=== PATIENT | female | born 1950 | race Two or more races ===

== ENCOUNTER 2021-02-03 14:15 | Emergency (ER) | payer MEDICARE, SELFPAY ==
[2021-02-03 14:23] VITALS: BP 200/94; PULSE 84; RESP 16; TEMP 36.9; O2SAT 94; BMI 31.8
[2021-02-03 18:00] VITALS: BP 204/90; PULSE 80; RESP 18; TEMP 37.1; O2SAT 97
--- NOTE | 2021-02-03 18:36 | ED_ITS ---
HPI - General Adult General Chief complaint: General Medical Stated complaint: FACIAL SWELLING DENTAL PAIN Time Seen by Provider: 02/03/21 18:23 Source: patient and family History of Present Illness HPI narrative: Patient is complaining of right dental and facial pain for the past 2-3 days. No fevers or chills. Long history of asthma with mild exacerbation but no significant difficulty breathing. No history of similar issues. She does have a history of poor dentition and multiple extractions in the past. She is in the process of finding a new dentist. She presents to the emergency department today because right side of her face is starting to swell and turn red. The pain started in her right upper molar region Related Data Previous Rx's Medication Instructions Recorded amoxicillin 500 mg tablet 1,000 mg PO Q12H #20 tab 02/03/21 ibuprofen 800 mg tablet 800 mg PO TID #20 tab 02/03/21 oxycodone-acetaminophen 5 mg-325 1 tab PO TID PRN #7 tab 02/03/21 mg tablet (Percocet) Allergies Allergy/AdvReac Type Severity Reaction Status Date / Time No Known Allergies Allergy Verified 02/03/21 14:30 Review of Systems Constitutional: Constitutional: Denies fever(s) ENT: Comments: No throat pain or difficulty swallowing. No lower jaw pain. Cardiovascular: Cardiovascular: Denies chest pain and Reports dyspnea (Mild shortness of breath consistent with her chronic asthma) Respiratory: Respiratory: Reports dyspnea (Mild shortness of breath consistent with her chronic asthma) Gastrointestinal: Gastrointestinal: Denies abdominal pain PMFSH Past Medical History Medical History (Updated 02/03/21 @ 18:43 by Shawn Barr MD) Asthma Cellulitis Social History Social History Advance Directives: Yes Advance Directives Information Provided: Yes Advance Directives on File: No Physical Exam Vital Signs: Vital Signs: Last Vital Signs Temp 98.7 F 02/03/21 18:00 Pulse 80 02/03/21 18:00 Resp 18 02/03/21 18:00 BP 204/90 H 02/03/21 18:00 Pulse Ox 97 02/03/21 18:00 Body Mass Index 31.8 Const: General: cooperative, no acute distress and alert Joey entation/consciousness: patient oriented x3 HENMT: Other: Right-sided facial swelling with mild redness and erythema. Ten derness to upper single right molar. Also some gum tenderness. No sub mandibular or submental tenderness or swelling or evidence of Mahad's angina. Airway is intact without stridor. No difficulty swallowing Neck: Other: No anterior neck tenderness or lymphadenopathy. No stridor Resp: Other: Mildly diminished bilaterally Cardio: Other: Regular rate and rhythm no murmurs rubs or gallops Skin: Other: Mild erythema right face without fluctuance or evidence of abscess Neuro: General: patient oriented x3 Course Course Course Narrative: Right facial cellulitis secondary to dental infection. No evidence of Mahad's angina or abscess. Will treat with amoxicillin here in the emergency department. Amoxicillin, ibuprofen, and Percocet for home Discharge Plan Discharge Clinical Impression: Cellulitis of face, Dental infection Patient Disposition: Home, Self-Care Instructions: Cellulitis (ED) Additional Instructions: See dental clinic list Prescriptions: New amoxicillin 500 mg tablet 1,000 mg PO Q12H Qty: 20 RF: 0 oxycodone-acetaminophen [Percocet] 5-325 mg tablet 1 tab PO TID PRN (Reason: pain) Qty: 7 RF: 0 ibuprofen 800 mg tablet 800 mg PO TID Qty: 20 RF: 0
[2021-02-03] MEDS: Amoxicillin 500 MG CAPSULE 1000 MG PO (18:58)
[2021-02-03] MEDS: Ibuprofen 800 MG TABLET PO (18:59)
== END 2021-02-03 19:02 | disposition home or self-care (01) ==
PROVIDERS: Emergency Provider Emergency Medicine
DX: L03.211 Cellulitis of face (principal); K04.7 Periapical abscess without sinus; K08.89 Other specified disorders of teeth and supporting structures
CPT/HCPCS: 99283; 99284

== ENCOUNTER 2022-01-19 12:43 | Outpatient (REF) | payer MEDICARE, SELFPAY ==
--- NOTE | ~2022-01-19 | XR_ITS ---
EXAMINATION: BILATERAL KNEE X-RAY CLINICAL INFORMATION: Pain COMPARISON: None TECHNIQUE: 3 views of each knee FINDINGS: Right: There is mild valgus angulation. Bone alignment is otherwise normal. No fracture or dislocation is seen. There is evidence of tricompartment arthritis. There is a small joint effusion. Left: There is mild valgus angulation. Bone alignment is otherwise normal. There is tricompartment arthritis. There is a small joint effusion. XR/XR knee RT 3V IMPRESSION: Bilateral arthritis.
--- NOTE | ~2022-01-19 | XR_ITS ---
EXAMINATION: BILATERAL KNEE X-RAY CLINICAL INFORMATION: Pain COMPARISON: None TECHNIQUE: 3 views of each knee FINDINGS: Right: There is mild valgus angulation. Bone alignment is otherwise normal. No fracture or dislocation is seen. There is evidence of tricompartment arthritis. There is a small joint effusion. Left: There is mild valgus angulation. Bone alignment is otherwise normal. There is tricompartment arthritis. There is a small joint effusion. XR/XR knee LT 3V IMPRESSION: Bilateral arthritis.
== END 2022-01-19 12:44 | disposition home or self-care (01) ==
LOC: HO.HOSX 12:43
PROVIDERS: Visit Provider Physician Assistant
DX: M17.0 Bilateral primary osteoarthritis of knee (principal)
CPT/HCPCS: 73562; 99202

== ENCOUNTER 2022-02-07 07:05 | Outpatient (REF) | payer MEDICARE, SELFPAY ==
[2022-02-07 07:24] LABS: MANUAL DIFF FLAG NO
[2022-02-07 07:31] LABS: Basophils Absolute Auto 0.1 X10*3/uL (0.0-0.2); Basophils Percent Auto 0.8 % (0-2); Eosinophils Absolute Auto 0.4 X10*3/uL (0.0-0.4); Eosinophils Percent Auto 6.1 % (0-4); Hematocrit 42.3 % (37.0-47.0); Hemoglobin 13.5 g/dl (12.0-16.0); Imm Gran Abs Auto 0.04 X10*3/uL (0.00-0.03); Imm Gran Pct Auto 0.6 % (0.0-0.4); Lymphocytes Absolute Auto 2.2 X10*3/uL (1.2-4.9); Lymphocytes Percent Auto 31.1 % (20-40); Mean Corpuscular HGB Conc 31.9 g/dl (31.0-35.0); Mean Corpuscular Hemoglobin 28.5 pg (27.0-33.0); Mean Corpuscular Volume 89.4 fL (80.0-98.0); Mean Platelet Volume 10.2 fL (9.4-12.3); Monocytes Absolute Auto 0.4 X10*3/uL (0.1-1.2); Monocytes Percent Auto 5.8 % (2-11); Neutrophils Percent Auto 55.6 % (45-73); Platelet Count 220 X10*3/uL (160-400); Red Blood Count 4.73 X10*6/uL (4.20-5.50); Red Cell Distribution Width 14.7 % (11.0-16.0); White Blood Count 7.2 X10*3/uL (4.8-10.8)
[2022-02-07 07:54] LABS: Alanine Aminotransferase 23 U/L (0-31); Albumin Level 3.9 g/dL (3.5-5.0); Alkaline Phosphatase 83 U/L (39-117); Anion Gap 18 (12-20); Aspartate Amino Transferase 18 U/L (5-31); Bilirubin Total 0.7 mg/dL (0.0-1.0); Blood Urea Nitrogen 23 mg/dL (9-16); Calcium 9.1 mg/dL (8.4-10.2); Carbon Dioxide 26 mmol/L (22-29); Chloride 100 mmol/L (96-108); Cholesterol 165 mg/dL; Estimated Glomerular Filt Rate 45; Glucose Fasting 93 mg/dL (60-99); HDL Cholesterol 35 mg/dL; Iron 78 mcg/dL (30-160); LDL Cholesterol Calculated 89 mg/dl; Percent Iron Saturation 22 % (15-50); Potassium 4.6 mmol/L (3.3-5.1); Sodium 139 mmol/L (135-145); Total Iron Binding Capacity 348 mcg/dL (228-428); Total Protein 6.6 g/dL (6.5-8.0); Triglycerides 206 mg/dL; Unsaturated Iron Binding 270 ug/dL
[2022-02-07 08:19] LABS: TSH reflex Free T4 1.48 uIU/mL (0.32-4.0); Vitamin D 25-OH Total 35.1 ng/mL (>30)
[2022-02-07 08:43] LABS: Folate 11.2 ng/mL (> or = 4.0); Vitamin B12 378 pg/mL (200-900)
== END 2022-02-07 07:06 | disposition home or self-care (01) ==
LOC: HO.LAB 07:05
PROVIDERS: PCP Nurse Practitioner Family; Visit Provider Nurse Practitioner Family
DX: Z13.29 Encounter for screening for other suspected endocrine disorder (principal); M25.561 Pain in right knee; M25.562 Pain in left knee; K21.9 Gastro-esophageal reflux disease without esophagitis; E78.5 Hyperlipidemia, unspecified
CPT/HCPCS: 36415; 80053; 80061; 82306; 82607; 82746; 83540; 84443; 85025

== ENCOUNTER 2022-03-02 09:25 | Outpatient (RCR) | payer MEDICARE, SELFPAY ==
[2022-03-02 09:51] VITALS: BP 128/57; PULSE 62
--- NOTE | 2022-03-02 11:44 | MHC.PT.EP ---
[facility] [place] Office [place] Office [place] Office [address] [phone] F: [phone] F: [phone] F: [phone] F: [phone] Physical Therapy Plan of Care Date of Evaluation: Date of Surgery: NA Diagnosis: B primary OA of knee Assessment: Rita is a 72 year old female who is referred to PT for B primary OA of knee . History obtained from family. Per family member she has a family h/o knee issues which has made other family members wheelchair bound. Per family members pt was ambulating with AD until 3 years back when she developed shingles and ended up being wheel chair bound. On PT examination she presented with 7/10 pain in L knee with transfers, TTP over medial joint line in L knee, significantly decreased B LE ROM, decreased B LE strength and altered posture. Due to these impairments she is wheel chair bound and is dependent with transfers and bed mobility. Her son is her [employer] who assists her with all ADLs. She is an appropriate candidate for home PT. Family members are going to try to set up home PT. She will trial outpatient PT until then to address the aforementioned impairments and improve tolerance to functional activities. Frequency and Duration: The patient will be seen 2/week for 5 weeks. Short Term Goals: 1. Pt will initiate performing HEP in 1 weeks. 2. Pt will be able to roll in the bed with CTG to min A in 2 weeks Long-Term Goals: 1. Pt will be able to perform supine to sit transfer with min A in 4 weeks. 2. Pt will be independent with symptom management and maintenance following d.c in 5 weeks. Treatment Plan: Modalities to reduce pain, spasms and effusion. Manual therapy to restore motion and function. Therapeutic exercise to improve strength and flexibility. Neuromuscular re-education for posture and balance. Therapeutic activities to return to functional activities of daily living. Electronically signed by: Maria Alejandra Mandel PT DPT Please sign and return to therapist. Thank you for your referral.
--- NOTE | 2022-03-13 08:24 | MHC.PT.DC ---
[facility] [place] Office [place] Office [place] Office [address] Ara Crenshaw [address] [phone] F: [phone] F: [phone] F: [phone] F: [phone] Physical Therapy Discharge Report Diagnosis: B primary OA of knee Date of Surgery: NA Date of Evaluation: 03/02/22 Date of Discharge: 03/13/22 Treatments to Date: 1 Cancellations to Date: 0 No Shows to Date: 0 Discharge Status: Discharge Summary: Pt d/c from PT as she has started home PT. Electronically signed by: Maria Alejandra Mandel PT DPT Please sign and return to therapist. Thank you for your referral.
== END 2022-03-13 08:24 | disposition home or self-care (01) ==
LOC: HO.PT 09:25
PROVIDERS: PCP Nurse Practitioner Family; Visit Provider Physician Assistant
DX: M17.0 Bilateral primary osteoarthritis of knee (principal); Z99.3 Dependence on wheelchair
CPT/HCPCS: 97110; 97162

== ENCOUNTER → 2022-04-10 09:38 | Outpatient (BNVA) | payer MEDICARE, SELFPAY | PROVIDERS: PCP Nurse Practitioner Family; Visit Provider Physician Assistant | DX: M17.0 Bilateral primary osteoarthritis of knee (principal) | CPT/HCPCS: 99212 ==

== ENCOUNTER → 2022-04-11 07:57 | Outpatient (BNVA) | payer MEDICARE, SELFPAY | PROVIDERS: PCP Nurse Practitioner Family; Referring Provider Nurse Practitioner Family; Visit Provider Nurse Practitioner | DX: Z01.818 Encounter for other preprocedural examination (principal); Z99.3 Dependence on wheelchair | CPT/HCPCS: 99202 ==

== ENCOUNTER → 2022-07-10 09:50 | Outpatient (BNVA) | payer MEDICARE, SELFPAY | PROVIDERS: Visit Provider Physician Assistant | DX: M17.0 Bilateral primary osteoarthritis of knee (principal) | CPT/HCPCS: 20610; 99212; J1040 ==

== ENCOUNTER 2022-08-02 07:11 | Outpatient (REF) | payer MEDICARE, SELFPAY ==
[2022-08-02 08:04] LABS: Hematocrit 39.9 % (37.0-47.0); Hemoglobin 12.8 g/dl (12.0-16.0); Mean Corpuscular HGB Conc 32.1 g/dl (31.0-35.0); Mean Corpuscular Hemoglobin 28.6 pg (27.0-33.0); Mean Corpuscular Volume 89.1 fL (80.0-98.0); Platelet Count 229 X10*3/uL (160-400); Red Blood Count 4.48 X10*6/uL (4.20-5.50); Red Cell Distribution Width 14.8 % (11.0-16.0); White Blood Count 6.5 X10*3/uL (4.8-10.8)
[2022-08-02 08:38] LABS: Alanine Aminotransferase 13 U/L (0-31); Albumin Level 3.8 g/dL (3.5-5.0); Alkaline Phosphatase 78 U/L (39-117); Anion Gap 15 (12-20); Aspartate Amino Transferase 13 U/L (5-31); Bilirubin Total 0.5 mg/dL (0.0-1.0); Blood Urea Nitrogen 25 mg/dL (9-16); Calcium 9.1 mg/dL (8.4-10.2); Carbon Dioxide 28 mmol/L (22-29); Chloride 102 mmol/L (96-108); Cholesterol 177 mg/dL; Estimated Glomerular Filt Rate > 60; Glucose Fasting 87 mg/dL (60-99); HDL Cholesterol 39 mg/dL; LDL Cholesterol Calculated 94 mg/dl; Potassium 4.6 mmol/L (3.3-5.1); Sodium 140 mmol/L (135-145); Triglycerides 221 mg/dL
== END 2022-08-02 07:12 | disposition home or self-care (01) ==
LOC: HO.LAB 07:11
PROVIDERS: PCP Nurse Practitioner Family; Visit Provider Nurse Practitioner Family
DX: E78.5 Hyperlipidemia, unspecified (principal); I10 Essential (primary) hypertension
CPT/HCPCS: 36415; 80053; 80061; 85027

== ENCOUNTER 2022-08-09 10:03 | Outpatient (REF) | payer MEDICARE, SELFPAY | END 2022-08-09 10:04 | disposition home or self-care (01) | LOC: HO.LAB 10:03 | PROVIDERS: Visit Provider Nurse Practitioner Family | DX: R30.0 Dysuria (principal) | CPT/HCPCS: 87086 ==

== ENCOUNTER → 2022-10-09 09:08 | Outpatient (BNVA) | payer MEDICARE, SELFPAY | PROVIDERS: PCP Nurse Practitioner Family; Visit Provider Physician Assistant | DX: M17.0 Bilateral primary osteoarthritis of knee (principal) | CPT/HCPCS: 20610; 99212; J1040 ==

== ENCOUNTER 2022-11-06 07:09 | Outpatient (REF) | payer OTHER, SELFPAY ==
[2022-11-06 08:12] LABS: Alanine Aminotransferase 16 U/L (0-31); Alkaline Phosphatase 85 U/L (39-117); Anion Gap 15 (12-20); Aspartate Amino Transferase 12 U/L (5-31); Bilirubin Total 0.6 mg/dL (0.0-1.0); Blood Urea Nitrogen 20 mg/dL (9-16); Calcium 9.5 mg/dL (8.4-10.2); Carbon Dioxide 26 mmol/L (22-29); Chloride 104 mmol/L (96-108); Cholesterol 194 mg/dL; Estimated Glomerular Filt Rate > 60; Glucose Fasting 90 mg/dL (60-99); HDL Cholesterol 47 mg/dL; LDL Cholesterol Calculated 112 mg/dl; Potassium 4.4 mmol/L (3.3-5.1); Sodium 141 mmol/L (135-145); Total Protein 6.5 g/dL (6.5-8.0); Triglycerides 175 mg/dL
== END 2022-11-06 07:10 | disposition home or self-care (01) ==
LOC: HO.LAB 07:09
PROVIDERS: PCP Nurse Practitioner Family; Visit Provider Nurse Practitioner Family
DX: E78.5 Hyperlipidemia, unspecified (principal); I10 Essential (primary) hypertension
CPT/HCPCS: 36415; 80053; 80061

== ENCOUNTER 2023-01-07 16:16 | Emergency (ER) | payer MEDICARE, SELFPAY ==
--- NOTE | ~2023-01-07 | XR_ITS ---
EXAMINATION: XR WRIST, LEFT XR HAND, LEFT CLINICAL INFORMATION: Left thumb injury/laceration. COMPARISON: None available. TECHNIQUE: PA, lateral, and oblique views of the left wrist and hand. FINDINGS: No acute fractures or subluxation. Moderate multifocal degenerative osteoarthritis with joint space narrowing, subcortical sclerosis and small marginal osteophytes. No erosions. No abnormal soft tissue calcifications. XR/XR hand wrist LT IMPRESSION: 1. No acute fractures or subluxation. 2. Moderate multifocal degenerative osteoarthritis.
[2023-01-07 17:12] VITALS: BP 159/83; PULSE 83; RESP 18; TEMP 36.5; O2SAT 98; BMI 34.3
--- NOTE | 2023-01-07 17:16 | ED.GENADULT ---
HPI - General Adult General Chief complaint: Extremity Injury, Upper Stated complaint: left hand lac Time Seen by Provider: 01/07/23 18:24 Source: patient and family (Son) Mode of arrival: wheelchair Limitations: language barrier History of Present Illness HPI narrative: Patient is a 72-year-old Brazilian-speaking female with history of HTN, GERD, HLD, asthma, wheelchair-bound presenting to the emergency department with laceration to dorsal aspect of left hand. Son states that she was cutting a pair on and accidentally cut her hand. States the area looked okay until today when the patient developed worsening redness and swelling. Patient's son deny any drainage or discharge from the area. Denies any fevers. Patient denies decreased range of motion. Patient and son deny recent tetanus vaccine. MD complaint: Left hand pain Onset (ago): day(s) Location: left and upper extremity Radiation: non-radiation Severity: moderate Quality: aching Pain Consistency: constant Relieving factors: rest Exacerbating factors: movement Associated symptoms: denies other symptoms Treatments prior to arrival: none Related Data Home Medications Medication Instructions Recorded Confirmed albuterol sulfate 90 mcg/actuation 2 puff inhalation Q4-6H PRN 12/14/21 11/09/22 aerosol inhaler fluticasone propionate 220 2 puff inhalation BID 12/14/21 11/09/22 mcg/actuation HFA aerosol inhaler (Flovent HFA) albuterol sulfate 2.5 mg/3 mL 2.5 mg inhalation Q6H 02/09/22 11/09/22 (0.083 %) solution for nebulization hydrocortisone 1 % topical ointment 1 appl topical BID 02/09/22 11/09/22 ipratropium bromide 21 mcg (0.03 intranasal 02/09/22 11/09/22 %) nasal spray Previous Rx's Medication Instructions Recorded polyethylene glycol 3350 17 17 g PO DAILY PRN constipation 02/09/22 gram/dose oral powder (Miralax) #238 grams peg 3350-electrolytes 236 240 ml PO Q10M 1 day #4,000 mL 04/11/22 gram-22.74 gram-6.74 gram-5.86 gram solution (Golytely) tizanidine 4 mg capsule 4 mg PO BEDTIME PRN muscle 08/31/22 spasticity #10 caps simvastatin 40 mg tablet 40 mg PO BEDTIME #90 tabs 09/07/22 furosemide 40 mg tablet 40 mg PO DAILY #90 tabs 10/02/22 sertraline 25 mg tablet 25 mg PO DAILY #90 tabs 10/03/22 naproxen 500 mg tablet 500 mg PO BEDTIME #30 tabs 11/06/22 fluticasone propionate 50 1 spray intranasal DAILY allergy 11/09/22 mcg/actuation nasal symptoms #100 mL spray,suspension (Flonase Allergy Relief) miscellaneous medical supply 1 ea miscellaneous .4xday #120 ea 12/07/22 miscellaneous medical supply 1 ea miscellaneous .4xday #200 ea 12/07/22 miscellaneous medical supply 1 ea miscellaneous DAILY #30 ea 12/07/22 pregabalin 100 mg capsule 100 mg PO BID #60 caps 12/12/22 lisinopril 30 mg tablet 30 mg PO DAILY #90 tabs 12/18/22 cholecalciferol (vitamin D3) 50 2,000 unit PO DAILY #30 caps 12/30/22 mcg (2,000 unit) capsule loratadine 10 mg tablet 10 mg PO DAILY #30 tabs 12/30/22 baclofen 10 mg tablet 10 mg PO QID #120 tabs 01/02/23 cefuroxime axetil 500 mg tablet 500 mg PO BID #14 tabs 01/07/23 Allergies Allergy/AdvReac Type Severity Reaction Status Date / Time No Known Allergies Allergy Verified 11/09/22 09:37 Review of Systems Review of Systems: As per HPI. Yes all other systems are reviewed and are negative Constitutional: Constitutional: Reports as per HPI COUNT INCLUDES THE [facility] Past Medical History Medical History Asthma Cellulitis Encounter to establish care History of shingles Surgical History History of partial hysterectomy Status post right foot surgery Family History Family History Mother Heart failure Father Heart attack Other Mental health disorder Substance use disorder Social History Social History Housing: Apartment Alcohol intake: former Patient Tobacco Use Status: Never used Tobacco e-Cigarette/Vaping Use: Never Used Second Hand Smoke Exposure: No Advance Directives: No Advance Directives Information Provided: Yes service: No Current occupational status: disabled Cognitive needs: Yes (wheelchair) Hearing needs: No Vision needs: Yes Physical Exam ED Vital Signs: Vital Signs - 24 hr 01/07/23 17:12 01/07/23 18:10 Temperature 97.7 F 97.8 F Pulse Rate 83 76 Respiratory Rate 18 18 Blood Pressure 159/83 H 137/72 Pulse Oximetry 98 96 Oxygen Delivery Method Room Air Room Air BMI result Body Mass Index 34.3 Vital signs have been reviewed and appear to be correct. Blood pressure normal. Heart rate normal. Respiratory rate normal. Temperature normal. Oxygen saturation normal. Const General: cooperative, healthy appearing and no acute distress Orientation/consciousness: oriented to person, oriented to place, oriented to time and patient oriented x3 Limitations: no limitations HENMT Head: Yes normocephalic and Yes atraumatic Ears: external ears normal General nose exam: Normal external nose present Face and sinus: Yes face symmetric Mouth: oropharynx normal and moist mucous membranes Throat: Yes uvula midline Eyes Pupils: Equal, round and reactive pupils present Neck Neck: Yes normal visual inspection and Yes supple Resp Effort & Inspection: normal respiratory effort and able to speak in complete sentences Auscultation: clear to auscultation bilaterally Cardio Rate: regular rate Rhythm: regular rhythm Heart sounds: S1 normal heart sound present and S2 normal heart sound present GI Palpation (GI): Soft to palpation and nontender Auscultation: normoactive bowel sounds General: Yes no CVA tenderness Back/Spine/Pelvis Back: no CVA tenderness Skin General skin exam: elasticity normal and turgor normal Trauma: laceration left dorsal thumb linear (superficial with surrounding erythema and calor) Neuro General: oriented to person, oriented to place, oriented to time, patient oriented x3, no focal motor deficits and CN's II-XI intact bilaterally Cranial nerves: Yes Equal, round and reactive pupils present Cognition (Neuro): normal cognition Extrem General: Yes full ROM, Yes normal exam except as noted, Yes no pedal edema and Yes no calf tenderness Left upper extremity: hand Details: normal capillary refill, neuromotor exam normal, neurosensory exam normal, tendon exam normal, tenderness Location: of the dorsal hand Location: over the 1st metacarpal and of the thumb Location: involving the entire digit, normal ROM of fingers and warmth Location: of the thumb Psych Mental Status: mental status grossly normal Affect: normal affect Thought process: Normal thought process present Course Course Course Narrative: RME: 72 yold female presents to the ED left thumb pain after laceration with knife that occurred on sunday. THumb pain when moving finge. no redness or warmth of thumb. Some ecchymosis. Hand xray ordered Medications Administered Discontinued Medications Generic Name Dose Route Start Last Admin Trade Name Freq PRN Reason Stop Dose Admin Diphtheria/Tetanus/Acell Pertussis 0.5 ml 01/07/23 18:29 01/07/23 18:54 Diphth,Pertus(Acell),Tet Adult 0.5 Ml Syringe IM 01/07/23 18:30 0.5 ml .ONCE ONE Administration Medical Decision Making Medical Decision Making [facility] Narrative: Patient is a 72-year-old Brazilian-speaking female with history of HTN, GERD, HLD, asthma, wheelchair-bound presenting to the emergency department with laceration to dorsal aspect of left hand. On exam patient is awake, A+Ox3, VS WNL, afebrile, normal neurological exam without focal deficits, superficial laceration to dorsal aspect of left hand with surrounding erythema and warmth, no discharge or drainage, no streaking. Given reported symptoms and physical exam findings, initial differential includes cellulitis, fracture, osteomyelitis. Do not suspect tendon injury as patient has full ROM. X-ray notable for no acute fracture, no osteomyelitis. My interpretation is in agreement with the radiologist's interpretation. Will update patient's Tdap today. Will treat with course of cefuroxime. Instructed patient to soak hand in warm water with Epsom salt several times daily. Will refer to Dr. Velasquez for any ongoing pain. Instructed patient to follow-up with primary care provider this week. Strict return precautions discussed at bedside and patient and son verbalized understanding of and agreement with plan. Differential Diagnosis Differential Diagnoses: The differential diagnosis associated with the presentation includes As per MDM. Independent Interpretation I performed an independent interpretation of an: Plain X-Ray Interpretation: No fracture, no osteomyelitis Radiology Impression Discussion of test interpretation with radiology: I have reviewed the radiologist's reading. Radiologist Impression: FINDINGS: No acute fractures or subluxation. Moderate multifocal degenerative osteoarthritis with joint space narrowing, subcortical sclerosis and small marginal osteophytes. No erosions. No abnormal soft tissue calcifications. XR/XR hand wrist LT IMPRESSION: 1.? No acute fractures or subluxation. 2.? Moderate multifocal degenerative osteoarthritis. ? Independent Historian Clinical information obtained from an independent historian. History obtained from or confirmed by: Other (Son) External Record Review External record reviewed: Inpatient record, Office record and Outpatient record Prescription Management I considered prescription management with: Antibiotic Discharge Plan Discharge Clinical Impression: Cellulitis of hand, left Patient Disposition: Home, Self-Care Instructions: Cellulitis (DC) Additional Instructions: Usted carter sido evaluado en el departamento de emergencias hoy por patti infecci?n en la piel, tambi?n conocida shar celulitis. [place] los antibi?ticos recetados seg?n las indicaciones emilio todo el curso del medicamento. Tambi?n puede sumergir sunshine mano en agua tibia con yanni de Epsom emilio 10 a 15 minutos a la vez varias veces al d?a. Debe evaluar sunshine mano diariamente para detectar signos de empeoramiento de la infecci?n, lo que incluye empeoramiento del enrojecimiento, hinchaz?n, drenaje amarillo espeso, enrojecimiento que sube por la mano hacia la mu?eca, fiebre de 100.4? F o m?s y regresar al departamento de emergencias si esto ocurre. Puede usar Tylenol o ibuprofeno seg?n las instrucciones del paquete cada 6 horas seg?n sea necesario para el dolor. Si es necesario, puede alternar estos medicamentos para que pueda catalina un medicamento cada 3 horas. Por ejemplo, al mediod?a catalina ibuprofeno, luego a las 3:00 p. m. catalina Tylenol, luego a las 6:00 p.m. catalina ibuprofeno. Programe patti tina de seguimiento con sunshine m?dico de atenci?n primaria lo antes posible. Regrese al departamento de emergencias si experimenta v?mitos recurrentes, fiebre superior a 100.4? F, aumento del ?mariela de enrojecimiento, calor alrededor del ?mariela, secreci?n maloliente del ?mariela, aumento de la sensibilidad alrededor del ?mariela o cualquier otro s?ntoma preocupante. Por favor, natalio un seguimiento con el Dr. Velasquez. Prescriptions: New cefuroxime axetil 500 mg tablet 500 mg PO BID Qty: 14 0RF No Action tizanidine 4 mg capsule 4 mg PO BEDTIME PRN (Reason: muscle spasticity) Qty: 10 0RF simvastatin 40 mg tablet 40 mg PO BEDTIME Qty: 90 1RF furosemide 40 mg tablet 40 mg PO DAILY Qty: 90 1RF sertraline 25 mg tablet 25 mg PO DAILY Qty: 90 1RF naproxen 500 mg tablet 500 mg PO BEDTIME Qty: 30 0RF miscellaneous medical supply Misc 1 ea miscellaneous .4xday Qty: 120 11RF Rx Instructions: pull-ups, adult size large miscellaneous medical supply Misc 1 ea miscellaneous DAILY Qty: 30 11RF Rx Instructions: disposable bed pads miscellaneous medical supply Misc 1 ea miscellaneous .4xday Qty: 200 11RF Rx Instructions: Disposable body wash wipes pregabalin 100 mg capsule 100 mg PO BID Qty: 60 0RF lisinopril 30 mg tablet 30 mg PO DAILY Qty: 90 1RF loratadine 10 mg tablet 10 mg PO DAILY Qty: 30 3RF cholecalciferol (vitamin D3) 50 mcg (2,000 unit) capsule 2,000 unit PO DAILY Qty: 30 3RF baclofen 10 mg tablet 10 mg PO QID Qty: 120 0RF albuterol sulfate 90 mcg/actuation HFA aerosol inhaler 2 puff inhalation Q4-6H PRN fluticasone propionate [Flovent HFA] 220 mcg/actuation HFA aerosol inhaler 2 puff inhalation BID ipratropium bromide 21 mcg (0.03 %) spray,non-aerosol intranasal hydrocortisone 1 % ointment 1 appl topical BID albuterol sulfate 2.5 mg /3 mL (0.083 %) solution for nebulization 2.5 mg inhalation Q6H polyethylene glycol 3350 [Miralax] 17 gram/dose powder 17 g PO DAILY PRN (Reason: constipation) Qty: 238 0RF fluticasone propionate [Flonase Allergy Relief] 50 mcg/actuation spray,suspension 1 spray intranasal DAILY Qty: 100 0RF Rx Instructions: administer into each nostril peg 3350-electrolytes [Golytely] 236-22.74-6.74 -5.86 gram recon soln 240 ml PO Q10M 1 Days Qty: 4000 0RF Rx Instructions: until fecal effluent is clear; do not exceed a total volume of 2,000 mL Referrals: Kaylie Velasquez MD [Physician] - Interventions: ED Discharge Assessment Last Done: 01/07/23 18:57 Discharge Date/Time: 01/07/23 18:57 Print Language: Brazilian
[2023-01-07 18:10] VITALS: BP 137/72; PULSE 76; RESP 18; TEMP 36.6; O2SAT 96
[2023-01-07] MEDS: Diphth,Pertus(ACell),Tet Adult 0.5 ML SYRINGE IM (18:54)
--- NOTE | 2023-01-07 18:57 | PC.NURSE ---
pt medicated per JUL- tetanus updated kevan llamas
== END 2023-01-07 18:57 | disposition home or self-care (01) ==
PROVIDERS: Emergency Provider Internal Medicine
DX: S61.412A Laceration without foreign body of left hand, initial encounter (principal); S60.512A Abrasion of left hand, initial encounter; L03.114 Cellulitis of left upper limb; M79.642 Pain in left hand; W26.9XXA Contact with unspecified sharp object(s), initial encounter; Y93.9 Activity, unspecified; Y92.9 Unspecified place or not applicable; Y99.9 Unspecified external cause status; Z79.899 Other long term (current) drug therapy; Z23 Encounter for immunization
CPT/HCPCS: 73110; 73130; 90471; 90715; 99283

== ENCOUNTER 2023-01-09 09:25 | Outpatient (AMB) | payer MEDICARE, SELFPAY ==
[2023-01-09 09:31] VITALS: BMI 34.1
--- NOTE | 2023-01-09 09:31 | A.OFFVIS_ITS ---
Intake Vital Signs 01/09/23 09:31 Height 4 ft 11 in Weight 169 lb BMI 34.1 Intake Visit Reasons: Ov-B/L knee pain last inj. 10/09/22 Intake Note: Rita is a 72 year old female who presents today in a wheelchair for a follow up of bilateral knee pain, last injections 10/09/22. Patient reports injection help relief knee pain and would like to repeat injection today. States she also cut her finger while chopping veggies and was advise to schedule a separate appointment. Allergies No Known Allergies Allergy (Verified 01/09/23 09:35) HPI Ov-B/L knee pain last inj. 10/09/22 HPI Details 72-year-old female, who is Georgian speaking, presents in the office today for a follow up of bilateral knee pain. The patient had a cortisone injection in the bilateral knees on 10/09/2022. She claims the injections gave her relief from pain. She would like to repeat her injections today. [facility] Medical History Asthma Cellulitis Encounter to establish care History of shingles Surgical History History of partial hysterectomy Status post right foot surgery Family History Mother Heart failure Father Heart attack Other Mental health disorder Substance use disorder Social History Housing: Apartment Alcohol intake: former Patient Tobacco Use Status: Never used Tobacco e-Cigarette/Vaping Use: Never Used Second Hand Smoke Exposure: No service: No Current occupational status: disabled Cognitive needs: Yes (wheelchair) Hearing needs: No Vision needs: Yes Review of Systems Const All systems reviewed & are unremarkable except as noted in HPI and below Physical Exam Vital Signs: BMI result Body Mass Index 34.1 Const General: cooperative, healthy appearing and no acute distress Resp Effort & Inspection: normal respiratory effort and able to speak in complete sentences Cardio Rate: regular rate Peripheral pulses: Peripheral pulses 2+ throughout GI Palpation (GI): Soft to palpation Skin Lesions: no lesions Rashes: no rashes Extrem Other: Bilateral knees: Normal to inspection. No ecchymosis, erythema, or joint effusion. Extension to about 40 degrees. Flexion to 80 degrees. Global tenderness to palpation. Unable to assess Radha's or anterior drawer. NVI. Office Procedures Joint Injection/Drain Joint Injection/Drain Primary Site: right knee Secondary Site: left knee Injected: 80 mg of, DepoMedrol, with 8 mL of (2% plain lido) and in the joint Approach Used: anterolateral Procedure: The patient tolerated the procedure well, but had some pain with the injection and there was some relief with the local anesthesia Coding - Large joint Procedure code (CPT) selection complete Results Reviewed Results Reviewed: 01/09/23 09:31 Lidocaine HCl 2 % MPF [Xylocaine 2 % MPF] 5 ml .ROUTE .STK-MED ONE methylPREDNISolone acetate [DEPO-MedroL] 80 mg .ROUTE .STK-MED ONE Assessment & Plan Assessment & Plan (1) Osteoarthritis of knees, bilateral: Code(s): M17.0 - Bilateral primary osteoarthritis of knee Plan Ms. Fabby Glez is a 72-year-old female, who is Georgian speaking, presents in the office today for a follow up of bilateral knee pain. The patient had a cortisone injection in the bilateral knees on 10/09/2022. She claims the injections gave her relief from pain. She would like to repeat her injections today. The patient was offered a cortisone injection in the bilateral knees with 80 mg of DepoMedrol. The patient was explained the risk, benefits, and alternatives to receiving this injection. After receiving consent for the injection, the patient had the procedure done while in office today. The patient tolerated the procedure well with no complications. Follow up will be PRN, or sooner if needed. Patient Instructions: Scribed for Shey Gongora PA-C by Felicitas Sultana registered medical transcriptionist, on 01/09/2023 at 9:27 am, EST. Coding Level of Care Code Est Pt Level 3 (60743) Diagnoses Osteoarthritis of knees, bilateral M17.0 CPT Codes Coding - Large joint: 03215 - Large joint ([id number])
== END 2023-01-09 09:51 | disposition home or self-care (01) ==
PROVIDERS: Visit Provider Physician Assistant
DX: M17.0 Bilateral primary osteoarthritis of knee (principal)
CPT/HCPCS: 20610; 99213

== ENCOUNTER → 2023-01-09 09:25 | Outpatient (BNVA) | payer MEDICARE, SELFPAY | PROVIDERS: Visit Provider Physician Assistant | DX: M17.0 Bilateral primary osteoarthritis of knee (principal) | CPT/HCPCS: 20610; 99212; J1040 ==

== ENCOUNTER 2023-01-24 08:37 | Outpatient (AMB) | payer OTHER, SELFPAY ==
--- NOTE | 2023-01-24 09:07 | A.OFFVIS_ITS ---
Intake Intake Visit Reasons: Urinary incontinence Intake Note: New Patient presents for initial visit urinary incontinence Urology Medications: none Blood Thinner: none PVR: 0ml's Wet Machine Tender Required: Yes Accompanied by: Unknown Allergies No Known Allergies Allergy (Verified 01/24/23 22:52) Medication List - Last Reconciled 01/24/23 by EULA Lyons [adult pullups As directed] albuterol sulfate 90 mcg/actuation 2 puffs inhalation Q4-6H PRN albuterol sulfate 2.5 mg inhalation Q6H baclofen 10 mg PO QID cefuroxime axetil 500 mg PO BID cholecalciferol (vitamin D3) 2,000 units PO DAILY fluticasone propionate 220 mcg/actuation (Flovent HFA) 2 puffs inhalation BID fluticasone propionate 50 mcg/actuation (Flonase Allergy Relief) 1 spray intranasal DAILY furosemide 40 mg PO DAILY hydrocortisone 1% 1 appl topical BID ipratropium bromide intranasal lisinopril 30 mg PO DAILY loratadine 10 mg PO DAILY mirabegron ER (Myrbetriq) 25 mg PO DAILY 30 days miscellaneous medical supply 1 ea miscellaneous .4xday miscellaneous medical supply 1 ea miscellaneous DAILY miscellaneous medical supply 1 ea miscellaneous .4xday naproxen 500 mg PO BEDTIME peg 3350-electrolytes 236-22.74-6.74 -5.86 gram (Golytely) 240 mL PO Q10M 1 day polyethylene glycol 3350 (Miralax) 17 grams PO DAILY PRN pregabalin 100 mg PO BID sertraline 25 mg PO DAILY simvastatin 40 mg PO BEDTIME tizanidine 4 mg PO BEDTIME PRN HPI HPI Comments 2 History of Present Illness Details Rita is a very pleasant 72-year-old Dutch-speaking female patient of Dr. Oconnell who was accompanied by her son at today's visit. She has a past medical history of constipation, bilateral knee pain - followed by [facility] for knee injections, wheelchair bound, hypertension, bilateral leg pain below knee, GERD, depression, anxiety, hyperlipidemia, and asthmaShe presents to the office today as a new patient for urinary incontinence. In discussion with the patient and her son today she reports having longstanding incontinence for over 10-12 years now. She reports having annual follow-up with her primary care doctor at which time she was requesting an increase in the amount of diapers she has been receiving from [facility] and recommendations were made for urology referral for further assessment evaluation. She reports having a past medical history of 3 vaginal births with to labors being long labors and having large babies. She discusses noting increase in urinary incontinence after consuming her Lasix for her lower leg edema. Her son also discusses feeling her decreased mobility contributes to episodes of urinary incontinence. She otherwise denies urinary urgency, urinary frequency, hematuria, dysuria, foul smelling urine, changes to urinary stream, flank pain, fever, and or chills. Discussed at length importance of timed voiding and scheduled toileting to decreased episodes of incontinence. Son discusses patient was on previous overactive bladder medication many years ago and felt this was helpful however patient started experiencing side effects and the medication was stopped however he does not recall the name of the medication. I discussed at length given urinary incontinence related to decreased mobility and water pill timed voiding is essential. Discussed obtaining retroperitoneal ultrasound for further assessment evaluation. She otherwise offers no issues or concerns at this time. [facility] Medical History Asthma Cellulitis Encounter to establish care History of shingles Surgical History History of partial hysterectomy Status post right foot surgery Family History Mother Heart failure Father Heart attack Other Mental health disorder Substance use disorder Social History Housing: Apartment Alcohol intake: former Patient Tobacco Use Status: Never used Tobacco e-Cigarette/Vaping Use: Never Used Second Hand Smoke Exposure: No service: No Current occupational status: disabled Cognitive needs: Yes (wheelchair) Hearing needs: No Vision needs: Yes Review of Systems Const Reports as per HPI Eyes Reports no additional complaints ENT Reports no additional complaints Card Reports as per HPI Resp Reports as per HPI GI Reports as per HPI Reports as per HPI Musc Reports as per HPI Neuro Reports as per HPI Psych Reports as per HPI Physical Exam Const General: cooperative, comfortable, no acute distress, well developed, alert and awake Nutritional Appearance: overweight Orientation/consciousness: patient oriented x3 Limitations: wheelchair HEENT Head: Yes normal to inspection, Yes normocephalic and Yes atraumatic Ears: hearing grossly normal bilaterally Eyes General: appearance normal, both eyes and all related structures Neck Neck: Yes normal visual inspection and Yes trachea midline Chest Chest palpation & inspection: normal inspection of the chest Resp Effort & Inspection: normal respiratory effort and able to speak in complete sentences Cardio Rate: regular rate GI Inspection: Yes normal to inspection General: Yes no CVA tenderness Back/Spine/Pelvis Back: no CVA tenderness Skin General skin exam: no rashes or lesions noted Neuro General: patient oriented x3 Extrem General: Yes normal to inspection Psych Appearance: grossly normal and well kempt Mental Status: mental status grossly normal Speech and movement: Normal speech and movement present and Clear speech present Affect: normal affect Attitude: cooperative Thought process: Normal thought process present Thought content: Normal thought content present Insight: Fair insight present (Psych) Judgement: Fair judgement present (Psych) Office Procedures Post Void Residual Post Residual Void Post Void Residual (PVR): 0 67544-Qppi Void Residual by ultrasound Results AMB Urinalysis, Automated UA Leukoctes 0 Brandan/uL Last Edit by Recordant on 01/24/23 10:15 UA Nitrite Last Edit by Recordant on 01/24/23 10:15 UA Urobilinogen 0.2 mg/dL Last Edit by Recordant on 01/24/23 10:15 UA Protein 0 mg/dL Last Edit by Recordant on 01/24/23 10:15 UA pH 6.0 Last Edit by Recordant on 01/24/23 10:15 UA Blood 0 Ryan/uL Last Edit by Recordant on 01/24/23 10:15 UA Specific [place] 1.005 Last Edit by Recordant on 01/24/23 10:15 UA Ketone Last Edit by Recordant on 01/24/23 10:15 UA Bilirubin 0 mg/dL Last Edit by Recordant on 01/24/23 10:15 UA Glucose 0 mg/dL Last Edit by Recordant on 01/24/23 10:15 Results Reviewed Results Reviewed: Laboratory Last Values Urine pH (Auto) 6.0 01/24/23 09:11 Specific [place] (Auto) 1.005 01/24/23 09:11 Urine Protein (Auto) 0 mg/dL 01/24/23 09:11 Glucose (UA)(Auto) 0 mg/dL 01/24/23 09:11 Urine Blood (Auto) 0 Ryan/uL 01/24/23 09:11 Urine Bilirubin (Auto) 0 mg/dL 01/24/23 09:11 Urine Urobilinogen (Auto) 0.2 mg/dL 01/24/23 09:11 Leukocyte Esterase (Auto) 0 Brandan/uL 01/24/23 09:11 Assessment & Plan Assessment & Plan (1) Urinary incontinence: Code(s): R32 - Unspecified urinary incontinence Plan In office urinalysis results reviewed with the patient today; as noted above PVR 0 mL. Discussed at length importance of timed and scheduled voiding to decreased episodes of incontinence. Will obtain retroperitoneal ultrasound for further assessment evaluation. Start Myrbetriq as discussed and prescribed. Follow-up in 6-8 weeks with imaging to be completed prior; or sooner with any issues, concerns, and or questions. Orders: Orders US retroperitoneal comp Today R32 - Unspecified urinary incontinence AMB Urinalysis Automated Today Z13.9 - Encounter for screening, unspecified AMB Post Void Residual by ultrasound Today R32 - Unspecified urinary incontinence Medications: New mirabegron ER (Myrbetriq) 25 mg PO DAILY 30 days 30 tabs 1RF N30.10 - Interstitial cystitis (chronic) without hematuria, N32.81 - Overactive bladder, R35.1 - Nocturia, R39.15 - Urgency of urination Patient Instructions: The patient had an opportunity to ask questions regarding the treatment plan. All questions were answered. Physical exam, labs, and imaging were discussed and reviewed in detail. As well as risks, benefits, and discussion of treatment choices. No major barriers to understanding were identified. The patient expressed understanding and agreement with the above treatment plan. The patient was made aware they should contact our office by phone for worsening of their current condition, the appearance of new symptoms, or with any ques tions or concerns. Compliance is encouraged with any medications and follow up testing that is ordered. It is a privilege to be allowed the opportunity to participate in? your urological care.? Again, if you have any questions or concerns If you have any questions or concerns please do not hesitate to contact me. The office is [phone]. This note is constructed using voice recognition software. While every effort has been made to ensure accuracy heel seat fitter errors may have been included. Yours sincerely, DYLAN Lyons-ROSALIND Coding Level of Care Code New Pt Level 4 (82421) Diagnoses Urinary incontinence R32 CPT Codes Post Residual Void - PVR CPT Code: 66338-Gezv Void Residual by ultrasound ([id number])
== END 2023-01-24 10:29 | disposition home or self-care (01) ==
PROVIDERS: PCP Nurse Practitioner Family; Visit Provider Nurse Practitioner Family
DX: R32 Unspecified urinary incontinence (principal)
CPT/HCPCS: 99204

== ENCOUNTER → 2023-01-24 08:37 | Outpatient (BNVA) | payer OTHER, SELFPAY | PROVIDERS: PCP Nurse Practitioner Family; Visit Provider Nurse Practitioner Family | DX: R32 Unspecified urinary incontinence (principal) | CPT/HCPCS: 51798; 81003; 99202 ==

== ENCOUNTER 2023-02-13 07:33 | Outpatient (REF) | payer OTHER, SELFPAY ==
[2023-02-13 07:49] LABS: MANUAL DIFF FLAG NO
[2023-02-13 08:34] LABS: Basophils Percent Auto 0.3 % (0-2); Eosinophils Absolute Auto 0.4 X10*3/uL (0.0-0.4); Eosinophils Percent Auto 5.1 % (0-4); Hematocrit 38.2 % (37.0-47.0); Hemoglobin 12.1 g/dl (12.0-16.0); Imm Gran Pct Auto 1.4 % (0.0-0.4); Mean Corpuscular HGB Conc 31.7 g/dl (31.0-35.0); Mean Corpuscular Volume 91.6 fL (80.0-98.0); Mean Platelet Volume 9.9 fL (9.4-12.3); Monocytes Absolute Auto 0.4 X10*3/uL (0.1-1.2); Monocytes Percent Auto 5.8 % (2-11); Neutrophils Absolute Auto 4.4 x10*3/uL (2.0-8.3); Neutrophils Percent Auto 60.4 % (45-73); Platelet Count 295 X10*3/uL (160-400); Red Blood Count 4.17 X10*6/uL (4.20-5.50); Red Cell Distribution Width 14.8 % (11.0-16.0); White Blood Count 7.3 X10*3/uL (4.8-10.8)
[2023-02-13 09:09] LABS: Alanine Aminotransferase 15 U/L (0-31); Albumin Level 3.7 g/dL (3.5-5.0); Alkaline Phosphatase 72 U/L (39-117); Anion Gap 15 (12-20); Aspartate Amino Transferase 16 U/L (5-31); Bilirubin Total 0.3 mg/dL (0.0-1.0); Blood Urea Nitrogen 14 mg/dL (9-16); Calcium 9.4 mg/dL (8.4-10.2); Carbon Dioxide 26 mmol/L (22-29); Chloride 106 mmol/L (96-108); Cholesterol 149 mg/dL (<200); Estimated Glomerular Filt Rate > 60; Glucose Fasting 93 mg/dL (60-99); HDL Cholesterol 36 mg/dL (>40); LDL Cholesterol Calculated 72 mg/dL (<100); Potassium 3.8 mmol/L (3.3-5.1); Sodium 143 mmol/L (135-145); Total Protein 6.5 g/dL (6.5-8.0); Triglycerides 207 mg/dL (<150)
[2023-02-13 09:29] LABS: TSH reflex Free T4 3.75 uIU/mL (0.32-4.0); Vitamin D 25-OH Total 34.7 ng/mL (>30)
[2023-02-13 09:35] LABS: Folate 4.4 ng/mL (> or = 4.0); Vitamin B12 496 pg/mL (200-900)
== END 2023-02-13 07:34 | disposition home or self-care (01) ==
LOC: HO.LAB 07:33
PROVIDERS: PCP Nurse Practitioner Family; Visit Provider Nurse Practitioner Family
DX: M79.605 Pain in left leg (principal); M79.604 Pain in right leg; E78.5 Hyperlipidemia, unspecified; I10 Essential (primary) hypertension; Z13.29 Encounter for screening for other suspected endocrine disorder; Z99.3 Dependence on wheelchair; K59.00 Constipation, unspecified; K21.9 Gastro-esophageal reflux disease without esophagitis; F32.A Depression, unspecified; F41.9 Anxiety disorder, unspecified
CPT/HCPCS: 36415; 80053; 80061; 82306; 82607; 82746; 84443; 85025

== ENCOUNTER 2023-02-13 09:36 | Outpatient (AMB) | payer MEDICARE, SELFPAY ==
[2023-02-13 09:38] VITALS: BP 130/86; PULSE 72; O2SAT 97
--- NOTE | 2023-02-13 09:38 | A.OFFPC_ITS ---
Vital Signs 02/13/23 09:38 Height 4 ft 11 in BMI Reason not done Patient refused/unable BP 130/86 Blood Pressure Location Lt brachial Position Sitting Pulse 72 Pulse Source Pulse Oximeter Temp Source Skin Pulse Oximetry (%) 97 Oxygen Delivery Method Room Air Intake Visit Reasons: Annual Exam Intake Note: Patient is here today for a physical. Extrusion Manager Required: No Accompanied by: Son Allergies No Known Allergies Allergy (Verified 02/13/23 10:05) Medication List - Last Reconciled 02/13/23 by DYLAN Perry [adult pullups As directed] albuterol sulfate 90 mcg/actuation 2 puffs inhalation Q4-6H PRN albuterol sulfate 2.5 mg inhalation Q6H amoxicillin 500 mg PO TID baclofen 10 mg PO QID cholecalciferol (vitamin D3) 2,000 units PO DAILY fluticasone propionate 220 mcg/actuation (Flovent HFA) 2 puffs inhalation BID fluticasone propionate 50 mcg/actuation (Flonase Allergy Relief) 1 spray intranasal DAILY furosemide 40 mg PO DAILY hydrocortisone 1% 1 appl topical BID ipratropium bromide intranasal lisinopril 30 mg PO DAILY loratadine 10 mg PO DAILY mirabegron ER (Myrbetriq) 25 mg PO DAILY 30 days miscellaneous medical supply 1 ea miscellaneous .4xday miscellaneous medical supply 1 ea miscellaneous DAILY miscellaneous medical supply 1 ea miscellaneous .4xday naproxen 500 mg PO BEDTIME peg 3350-electrolytes 236-22.74-6.74 -5.86 gram (Golytely) 240 mL PO Q10M 1 day polyethylene glycol 3350 (Miralax) 17 grams PO DAILY PRN pregabalin 100 mg PO BID sertraline 25 mg PO DAILY simvastatin 40 mg PO BEDTIME tizanidine 4 mg PO BEDTIME PRN Tobacco use date assessed: 02/13/23 Fall risk assessment: No Falls in past year Last assessed Fall Risk: 02/13/23 Dental Screening Dental Screen Date: 02/13/23 Did you have a dental visit in the last 12 months?: Yes Did you have a dental problem in the last 6 months where you did not have access to dental care?: No Was dental information given to patient?: Patient has dentist HPI Annual Exam HPI Details Patient is a 72-year-old female who presents today for physical exam.?Medical history significant for constipation, bilateral knee pain - followed by [facility] for knee injections, wheelchair bound, hypertension, bilateral leg pain below knee, GERD, depression, anxiety, h yperlipidemia, and asthma.?She is compliant with medications and denies side effects.? Patient denies shortness of breath or chest pain.?Son reports that patient did have physical therapy at home in the past and they were told that patient does not have enough strength in her legs, patient does not ambulate, son helps with transfers. Patient is up-to-date with immunizations. Today we discussed patient's need for mammogram, bone density screen and colon cancer screening. Patient declined colonoscopy or a Cologuard, she denies changes in bowels, no blood. Patient has an upcoming appointment for eye exam. Dental exam up-to-date.? Patient is accompanied by her son Franko who helps with Niuean interpretation.? Recent blood work results reviewed with the patient. [facility] Medical History Encounter to establish care History of shingles Cellulitis Asthma Surgical History History of partial hysterectomy Status post right foot surgery Family History Mother Heart failure Father Heart attack Other Mental health disorder Substance use disorder Social History Housing: Apartment Alcohol intake: former Patient Tobacco Use Status: Never used Tobacco e-Cigarette/Vaping Use: Never Used Second Hand Smoke Exposure: No service: No Current occupational status: disabled Cognitive needs: Yes (wheelchair) Hearing needs: No Vision needs: Yes Questionnaire PHQ-9 Over the last 2 weeks, how often have you been bothered by any of the following problems? 1. Little interest or pleasure in doing things: not at all 2. Feeling down, depressed, or hopeless: not at all 3. Trouble falling or staying asleep, or sleeping too much: not at all 4. Feeling tired or having little energy: not at all 5. Poor appetite or overeating: not at all 6. Feeling bad about yourself - or that you are a failure or have let yourself or your family down: not at all 7. Trouble concentrating on things, such as reading the newspaper or watching television: not at all 8. Moving or speaking so slowly that other people could have noticed. Or the opposite - being so fidgety or restless that you have been moving around a lot more than usual: not at all 9. Thoughts that you would be better off or of hurting yourself in some way: not at all Total score: 0 Depression Screening Interpretation: Negative 80893 - PHQ-9 Billing: Yes Source: Developed by Drs. Vern Canchola, Anita Peters, Hardik Russo and colleagues, with an educational jeremie from [employer]. Thrive Questionnaire Date Thrive assessed: 08/09/22 AUDIT C Alcohol Use Questionnaire (AUDIT-C) 1. How often do you have a drink containing alcohol?: Never 3. How often do you have six or more drinks on one occasion?: Never Total Score: 0 Score Reviewed/Action Taken: No LAMIN-7 AMB Questionnaire LAMIN-7 Date LAMIN - 7 assessed: 02/13/23 Feeling nervous, anxious, or on edge: 0 = Not at all Not being able to stop or control worryin = Not at all Worrying too much about different things: 0 = Not at all Trouble relaxin = Not at all Being so restless that it is hard to sit still: 0 = Not at all Becoming easily annoyed or irritable: 0 = Not at all Feeling afraid as if something awful might happen: 0 = Not at all Total LAMIN-7 score (0-4 normal; 5-9 mild; 10-14 moderate; 15-21 severe): 0 Source: Developed by Drs. Vern Canchola, Anita Peters, Hardik Russo and colleagues, with an educational jeremie from [employer]. LAMIN-7 Assessment Billing LAMIN-7 Assessment Tool: LAMIN-7 Assessment 24776 Review of Systems Const Denies body aches, Denies chills, Denies fever(s) and Denies headache(s) Eyes Denies change in vision ENT Denies dizziness, Denies otalgia, Denies headache(s), Denies sinus pain and Denies sore throat Card Denies chest pain, Denies edema, Denies leg edema, Denies lightheadedness and Denies dyspnea Resp Denies chest congestion, Denies cough and Denies dyspnea GI Denies abdominal pain, Denies constipation, Denies diarrhea, Denies nausea and Denies vomiting Denies dysuria Musc Details: Bilateral leg pain Numbness and tingling in bilateral lower extremity from knee down Denies myalgias, Reports arthralgias and Denies joint swelling Skin/Breast Denies lesions and Denies rash Neuro Denies dizziness and Denies headache(s) Physical exam (Primary Care) Vital Signs: Last Vital Signs Pulse 72 02/13/23 09:38 BP 130/86 02/13/23 09:38 Pulse Ox 97 02/13/23 09:38 Oxygen Delivery Method Room Air 02/13/23 09:38 Tobacco/Smoking Status: Tobacco use Status Tobacco use date assessed 02/13/23 02/13/23 09:39 Patient Tobacco Use Status Never used Tobacco 02/13/23 09:39 e-Cigarette/Vaping Use Never Used 02/13/23 09:39 PHQ-9: PHQ-9 Score PHQ-9: Total score 0 02/13/23 09:58 Depression Screening Interpretation: Negative Thrive Assessment: Date of Thrive Assessment Date Thrive assessed 08/09/22 02/13/23 09:39 Const Other: Patient is in a wheelchair Patient unable to transfer on the exam table General: cooperative and no acute distress Orientation/consciousness: patient oriented x3 HENMT Head: Yes normocephalic and Yes atraumatic Ears: TM's normal bilaterally General nose exam: Normal nasal mucous membranes and turbinates present Face and sinus: Yes sinuses nontender Mouth: oropharynx normal and moist mucous membranes Throat: Yes posterior oropharynx normal Eyes General: appearance normal, both eyes and all related structures Pupils: Equal, round and reactive pupils present EOM: EOMs intact bilaterally Neck Neck: Yes normal visual inspection, Yes full ROM and Yes no lymphadenopathy Thyroid: Thyroid normal Resp Effort & Inspection: normal respiratory effort and able to speak in complete sentences Auscultation: clear to auscultation bilaterally, no crackles, no rales, no rhonchi and no wheezes Cardio Rate: regular rate Rhythm: regular rhythm Heart sounds: S1 normal heart sound present, S2 normal heart sound present and no murmurs GI Palpation (GI): Soft to palpation, not firm, nontender, no guarding, not rigid and no hepatosplenomegaly Auscultation: normal bowel sounds Skin General skin exam: no rashes or lesions noted Neuro General: patient oriented x3 Cranial nerves: Yes Equal, round and reactive pupils present Extrem Other: Trace edema to bilateral lower extremity BLE limited ROM d/t pain Bilateral upper extremity full range of motion Assessment and Plan Assessment & Plan (1) Hypertension: Code(s): I10 - Essential (primary) hypertension Plan: Furosemide 40 mg daily Lisinopril 30 mg daily Low-sodium diet Goal BP equal or less than 140/90 (2) Bilateral leg pain: Code(s): M79.604 - Pain in right leg; M79.605 - Pain in left leg Plan: Continue Lyrica 100 mg b.i.d., naproxen 500 mg at bedtime, and tizanidine 4 mg at bedtime as needed, and baclofen 10 mg q.i.d. Patient will be seeing Neurology soon, patient was seen by Neurology before [facility] for bilateral leg pain (3) GERD (gastroesophageal reflux disease): Code(s): K21.9 - Gastro-esophageal reflux disease without esophagitis Plan: Continue [id number]-[id number]-[id number] Tums as needed Avoid GERD trigger foods Do not lay down 2-3 hours after evening meal (4) Depression: Code(s): F32.A - Depression, unspecified Qualifiers: Depression Type: other depression Qualified Code(s): F32.89 - Other specified depressive episodes Plan: Sertraline 25 mg daily (5) Anxiety: Code(s): F41.9 - Anxiety disorder, unspecified Plan: Sertraline 25 mg daily (6) Leg edema: Code(s): R60.0 - Localized edema Plan: Continue Lasix 40 mg daily Elevate bilateral lower extremity Low-salt diet (7) Hyperlipidemia: Code(s): E78.5 - Hyperlipidemia, unspecified Plan: LDL 72 01/2023 Simvastatin 40 mg at bedtime Low-cholesterol diet (8) Asthma: Code(s): J45.909 - Unspecified asthma, uncomplicated Plan: Stable Continue albuterol inhaler as needed Continue Flovent 2 puffs b.i.d. (9) Wheelchair bound: Code(s): Z99.3 - Dependence on wheelchair Plan: Patient is a wheelchair bound due to bilateral lower extremity pain, patient does not ambulate for the past 3 years (10) Constipation: Code(s): K59.00 - Constipation, unspecified Plan: MiraLax daily p.r.n. Encouraged to increase fluid consumption and dietary fiber (11) Screening for breast cancer: Code(s): Z12.39 - Encounter for other screening for malignant neoplasm of breast (12) Post-menopausal: Code(s): Z78.0 - Asymptomatic menopausal state (13) Adult general medical exam: Code(s): Z00.00 - Encounter for general adult medical examination without abnormal findings (14) Colonoscopy refused: Code(s): Z53.20 - Procedure and treatment not carried out because of patient's decision for unspecified reasons Plan Follow-up in 3 months or sooner as needed Orders: Orders MM tomosynthesis screening BI Today Z12.31 - Encounter for screening mammogram for malignant neoplasm of breast, Z12.39 - Encounter for other screening for malignant neoplasm of breast XR DEXA axial skeleton Today Z78.0 - Asymptomatic menopausal state Lipid Panel 3 Months E78.5 - Hyperlipidemia, unspecified Comprehensive [place]. Panel Fast 3 Months I10 - Essential (primary) hypertension Medications: New albuterol sulfate 90 mcg/actuation 2 puffs inhalation Q4-6H PRN 8.5 grams 1RF shortness of breath or wheezing J45.909 - Unspecified asthma, uncomplicated fluticasone propionate 220 mcg/actuation (Flovent HFA) 2 puffs inhalation BID 12 grams 2RF J45.909 - Unspecified asthma, uncomplicated Changed From albuterol sulfate 2.5 mg inhalation Q6H J45.909 - Unspecified asthma, uncomplicated To albuterol sulfate 2.5 mg (3 mL) inhalation Q6H PRN 75 mL 0RF shortness of breath or wheezing J45.909 - Unspecified asthma, uncomplicated Refilled miscellaneous medical supply pull-ups, adult size large 1 ea miscellaneous .4xday 120 ea 11RF R32 - Unspecified urinary incontinence pregabalin 100 mg PO BID 60 caps 0RF M79.604 - Pain in right leg, M79.605 - Pain in left leg Discontinued cholecalciferol (vitamin D3) Discontinued Reason: Doctor's Order 2,000 units PO DAILY 30 caps 3RF Coding Level of Care Code Est Pt Prev Care >65y(27709) Diagnoses Hypertension I10 Bilateral leg pain M79.604; M79.605 GERD (gastroesophageal reflux disease) K21.9 Other depression F32.89 Depression Type: other depression Anxiety F41.9 Leg edema R60.0 Hyperlipidemia E78.5 Asthma J45.909 Wheelchair bound Z99.3 Constipation K59.00 Screening for breast cancer Z12.39 Post-menopausal Z78.0 Adult general medical exam Z00.00 Colonoscopy refused Z53.20 Additional Codes LAMIN-7 Assessment Billing - LAMIN-7 Assessment Tool: LAMIN-7 Assessment [id number] ([id number])
== END 2023-02-13 10:22 | disposition home or self-care (01) ==
PROVIDERS: Visit Provider Nurse Practitioner Family
DX: Z00.00 Encounter for general adult medical examination without abnormal findings (principal); I10 Essential (primary) hypertension; K21.9 Gastro-esophageal reflux disease without esophagitis; F41.9 Anxiety disorder, unspecified; J45.909 Unspecified asthma, uncomplicated; M79.604 Pain in right leg; M79.605 Pain in left leg; F32.89 Other specified depressive episodes; R60.0 Localized edema; E78.5 Hyperlipidemia, unspecified; Z99.3 Dependence on wheelchair; K59.00 Constipation, unspecified
CPT/HCPCS: 99397

== ENCOUNTER 2023-02-27 09:50 | Outpatient (REF) | payer OTHER, SELFPAY | END 2023-02-27 09:51 | disposition home or self-care (01) | LOC: HO.US 09:50 | PROVIDERS: PCP Nurse Practitioner Family; Visit Provider Nurse Practitioner Family | DX: Z13.89 Encounter for screening for other disorder (principal) ==

== ENCOUNTER 2023-03-06 09:53 | Outpatient (REF) | payer OTHER, SELFPAY ==
--- NOTE | ~2023-03-06 | US_ITS ---
EXAMINATION: US RETROPERITONEAL COMPLETE (RENAL) CLINICAL INFORMATION: Unspecified urinary incontinence. COMPARISON: None available. TECHNIQUE: Real-time imaging of the kidneys and bladder. FINDINGS: RIGHT KIDNEY: 11.5 x 4.1 x 5.5 cm (SAG x AP x TRV). The kidney is normal in size, contour, and echogenicity. Renal cortical thickness is normal. No calculi. No hydronephrosis. Possible invaginating fat versus angiomyolipoma midpole measuring 1.3 x 2.0 x 1.4 cm. LEFT KIDNEY: 11.1 x 5.2 x 5.5 cm (SAG x AP x TRV). The kidney is normal in size, contour, and echogenicity. Renal cortical thickness is normal. No calculi or focal parenchymal lesions. No hydronephrosis. BLADDER: Well distended and normal. Bilateral ureteral jets are demonstrated. Prevoid bladder volume is 211 mL. Postvoid bladder volume is 23 mL. US/US retroperitoneal comp IMPRESSION: No acute abnormality.
== END 2023-03-06 09:54 | disposition home or self-care (01) ==
LOC: HO.HMGCX 09:53
PROVIDERS: PCP Nurse Practitioner Family; Visit Provider Nurse Practitioner Family
DX: R32 Unspecified urinary incontinence (principal)
CPT/HCPCS: 76770

== ENCOUNTER 2023-03-13 10:52 | Outpatient (AMB) | payer OTHER, SELFPAY ==
--- NOTE | 2023-03-13 10:52 | MHC.OFFVIS ---
Intake Intake Visit Reasons: 6w/US/PVR(set) Intake Note: Patient presents for tele visit follow up urinary incontinence/ultrasound (imaging 03/06/23) Urology Medications: myrbetriq Blood Thinner: none Magistrate Required: Yes Allergies No Known Allergies Allergy (Verified 03/13/23 11:17) Medication List - Last Reconciled 03/13/23 by EULA Lyons [adult pullups As directed] albuterol sulfate 90 mcg/actuation 2 puffs inhalation Q4-6H PRN albuterol sulfate 2.5 mg (3 mL) inhalation Q6H PRN amoxicillin 500 mg PO TID baclofen 10 mg PO QID cholecalciferol (vitamin D3) 50 mcg PO DAILY fluticasone propionate 50 mcg/actuation (Flonase Allergy Relief) 1 spray intranasal DAILY fluticasone propionate 220 mcg/actuation (Flovent HFA) 2 puffs inhalation BID furosemide 40 mg PO DAILY hydrocortisone 1% 1 appl topical BID ipratropium bromide intranasal lisinopril 30 mg PO DAILY loratadine 10 mg PO DAILY mirabegron ER (Myrbetriq) 25 mg PO DAILY 90 days miscellaneous medical supply 1 ea miscellaneous DAILY miscellaneous medical supply 1 ea miscellaneous .4xday miscellaneous medical supply 1 ea miscellaneous .4xday naproxen 500 mg PO BEDTIME peg 3350-electrolytes 236-22.74-6.74 -5.86 gram (Golytely) 240 mL PO Q10M 1 day polyethylene glycol 3350 (Miralax) 17 grams PO DAILY PRN pregabalin 100 mg PO BID sertraline 25 mg PO DAILY simvastatin 40 mg PO BEDTIME tizanidine 4 mg PO BEDTIME PRN HPI HPI Comments History of Present Illness Details Rita is a very pleasant 73-year-old Azerbaijani-speaking female patient of Dr. Oconnell who was accompanied by her son at today's visit. She has a past medical history of constipation, bilateral knee pain - followed by [facility] for knee injections, wheelchair bound, hypertension, bilateral leg pain below knee, GERD, depression, anxiety, hyperlipidemia, and asthma. She is being followed up on today via video telehealth. Of note patient, was seen approxitamtely 6 weeks ago as a new patient for urinary incontinence at which time a retroperitoneal ultrasound was ordered and the patient was started on Myrbetriq 25 mg daily. Recent retroperitoneal ultrasound results reviewed with the patient and her son today. Right kidney with no hydronephrosis or renal calculi. Possible invaginating fat versus angiomyolipoma midpole measuring 1.3 x 2.0 x 1.4 cm. Left kidney with no calculi and or hydronephrosis noted. When asked she reports significant improvement in episodes of urinary incontinence since starting Myrbetriq. She reports to be extremely happy with current voiding parameters on Myrbetriq 25 mg daily. Discussed importance of continuing to practice timed voiding. She otherwise offers no issues or concerns at this time. [facility] Medical History Encounter to establish care History of shingles Cellulitis Asthma Surgical History History of partial hysterectomy Status post right foot surgery Family History Mother Heart failure Father Heart attack Other Mental health disorder Substance use disorder Social History Housing: Apartment Alcohol intake: former Patient Tobacco Use Status: Never used Tobacco e-Cigarette/Vaping Use: Never Used Second Hand Smoke Exposure: No service: No Current occupational status: disabled Cognitive needs: Yes (wheelchair) Hearing needs: No Vision needs: Yes Review of Systems Const Reports as per HPI Eyes Reports no additional complaints ENT Reports no additional complaints Card Reports as per HPI Resp Reports as per HPI GI Reports as per HPI Reports as per HPI Musc Reports as per HPI Neuro Reports as per HPI Psych Reports as per HPI Physical Exam Const General: cooperative, healthy appearing, comfortable, no acute distress, well developed, alert and awake Orientation/consciousness: patient oriented x3 Resp Effort & Inspection: normal respiratory effort and able to speak in complete sentences Neuro General: patient oriented x3 Psych Appearance: grossly normal Mental Status: mental status grossly normal Speech and movement: Clear speech present Affect: normal affect Attitude: cooperative Thought process: Normal thought process present Thought content: Normal thought content present Insight: Fair insight present (Psych) Judgement: Fair judgement present (Psych) Results Reviewed Results Reviewed: Date of Service: 03/06/23 EXAMINATION: US RETROPERITONEAL COMPLETE (RENAL) FINDINGS: RIGHT KIDNEY: 11.5 x 4.1 x 5.5 cm (SAG x AP x TRV). The kidney is normal in size, contour, and echogenicity. Renal cortical thickness is normal. No calculi. No hydronephrosis. Possible invaginating fat versus angiomyolipoma midpole measuring 1.3 x 2.0 x 1.4 cm. LEFT KIDNEY: 11.1 x 5.2 x 5.5 cm (SAG x AP x TRV). The kidney is normal in size, contour, and echogenicity. Renal cortical thickness is normal. No calculi or focal parenchymal lesions. No hydronephrosis. BLADDER: Well distended and normal. Bilateral ureteral jets are demonstrated. Prevoid bladder volume is 211 mL. Postvoid bladder volume is 23 mL. IMPRESSION: No acute abnormality. Assessment & Plan Assessment & Plan (1) Urinary incontinence: Code(s): R32 - Unspecified urinary incontinence Plan Recent retroperitoneal ultrasound results reviewed with the patient today; as noted above Discussed at length importance of timed and scheduled voiding to decreased episodes of incontinence. Continue Myrbetriq as discussed and prescribed; refills provided Patient reports to be happy with current voiding parameters on 25 mg of Myrbetriq daily; will continue Patient otherwise denies any bothersome urinary issues or concerns at this time Discussed, educated, and stressed the importance of drinking plenty of water daily. Follow-up in 6 months with [facility] Medications: Changed From mirabegron ER (Myrbetriq) 25 mg PO DAILY 30 days 30 tabs 1RF N30.10 - Interstitial cystitis (chronic) without hematuria, N32.81 - Overactive bladder, R35.1 - Nocturia, R39.15 - Urgency of urination To mirabegron ER (Myrbetriq) 25 mg PO DAILY 90 days 90 tabs 2RF N30.10 - Interstitial cystitis (chronic) without hematuria, N32.81 - Overactive bladder, R35.1 - Nocturia, R39.15 - Urgency of urination Patient Instructions: The patient had an opportunity to ask questions regarding the treatment plan. All questions were answered. Physical exam, labs, and imaging were discussed and reviewed in detail. As well as risks, benefits, and discussion of treatment choices. No major barriers to understanding were identified. The patient expressed understanding and agreement with the above treatment plan. The patient was made aware they should contact our office by phone for worsening of their current condition, the appearance of new symptoms, or with any questions or concerns. Compliance is encouraged with any medications and follow up testing that is ordered. It is a privilege to be allowed the opportunity to participate in? your urological care.? Again, if you have any questions or concerns If you have any questions or concerns please do not hesitate to contact me. The office is [phone]. This note is constructed using voice recognition software. While every effort has been made to ensure accuracy beef specialist errors may have been included. Yours sincerely, CONSUELO Lyons Telehealth Telehealth Location of provider rendering services: practice address Location of patient: address on file Patient Identification confirmed using: Name, : Yes Telehealth method: video Patient verbally consented to treatment: Yes Patient verbally consented to billing insurance company: Yes Patient informed of any privacy concerns related to visit: Yes Minutes spent on Phone/Video with Pt.: 15 Coding Level of Care Code Tele Est Pt Level 3 (76420) Diagnoses Urinary incontinence R32 Time Spent (min) 15
== END 2023-03-13 11:38 | disposition home or self-care (01) ==
LOC: HO.HUSH 10:52
PROVIDERS: PCP Nurse Practitioner Family; Visit Provider Nurse Practitioner Family
DX: R32 Unspecified urinary incontinence (principal)
CPT/HCPCS: 99213

== ENCOUNTER → 2023-03-13 10:52 | Outpatient (BNVA) | payer OTHER, SELFPAY | PROVIDERS: PCP Nurse Practitioner Family; Visit Provider Nurse Practitioner Family ==

== ENCOUNTER 2023-04-12 23:07 | Emergency (ER) | payer OTHER, SELFPAY ==
--- NOTE | 2023-04-12 | ECG_ITS ---
Test Reason : SOB Blood Pressure : / mmHG Vent. Rate : 082 BPM Atrial Rate : 082 BPM P-R Int : 152 ms QRS Dur : 072 ms QT Int : 372 ms P-R-T Axes : 020 020 027 degrees QTc Int : 434 ms Normal sinus rhythm Normal ECG No previous ECGs available Referred By: Generic ED Physician Electronically Signed By:MARTHA RUSS MD
--- NOTE | ~2023-04-12 | XR_ITS ---
EXAMINATION: XR CHEST CLINICAL INFORMATION: Dyspnea. COMPARISON: None available. TECHNIQUE: Frontal view of the chest was obtained. FINDINGS: The cardiomediastinal silhouette is within normal limits. There is no focal lung consolidation or pleural effusion. The bony structures and soft tissues are unremarkable. XR/XR chest 1V IMPRESSION: No evidence for active cardiopulmonary disease.
[2023-04-12 23:25] VITALS: BP 164/89; PULSE 90; O2SAT 94
[2023-04-12 23:37] VITALS: BP 149/66; PULSE 80; RESP 24; O2SAT 89; BMI 36.3
--- NOTE | 2023-04-12 23:37 | ED_ITS ---
HPI - SOB/Dyspnea General Chief Complaint: Dyspnea Stated Complaint: SOB X1DAY, DUO NEB Time Seen by Provider: 04/12/23 23:19 Source: patient Mode of arrival: ambulatory Limitations: no limitations History of Present Illness HPI Narrative: Patient obese history of asthma nebulizing treatment at home comes here for for 4 days of increased shortness of breath trying to use her nebulizer without much response today she got more sick has dry cough no fever no chills saturating 94% on room air when EMS reached patient does get sick 2-3 times a year nonsmoker Related Data Home Medications Medication Instructions Recorded Confirmed hydrocortisone 1 % topical ointment 1 appl topical BID 02/09/22 04/13/23 ipratropium bromide 21 mcg (0.03 intranasal 02/09/22 04/13/23 %) nasal spray cholecalciferol (vitamin D3) 50 50 mcg PO DAILY 03/13/23 04/13/23 mcg (2,000 unit) capsule Previous Rx's Medication Instructions Recorded polyethylene glycol 3350 17 17 g PO DAILY PRN constipation 02/09/22 gram/dose oral powder (Miralax) #238 grams peg 3350-electrolytes 236 240 ml PO Q10M 1 day #4,000 mL 04/11/22 gram-22.74 gram-6.74 gram-5.86 gram solution (Golytely) tizanidine 4 mg capsule 4 mg PO BEDTIME PRN muscle 08/31/22 spasticity #10 caps furosemide 40 mg tablet 40 mg PO DAILY #90 tabs 10/02/22 sertraline 25 mg tablet 25 mg PO DAILY #90 tabs 10/03/22 fluticasone propionate 50 1 spray intranasal DAILY allergy 11/09/22 mcg/actuation nasal symptoms #100 mL spray,suspension (Flonase Allergy Relief) miscellaneous medical supply 1 ea miscellaneous .4xday #200 ea 12/07/22 miscellaneous medical supply 1 ea miscellaneous DAILY #30 ea 12/07/22 loratadine 10 mg tablet 10 mg PO DAILY #30 tabs 12/30/22 adult pullups #210 ea 01/12/23 albuterol sulfate 2.5 mg/3 mL 2.5 mg (3 mL) inhalation Q6H PRN 02/13/23 (0.083 %) solution for nebulization shortness of breath or wheezing #75 mL albuterol sulfate 90 mcg/actuation 2 puff inhalation Q4-6H PRN 02/13/23 aerosol inhaler shortness of breath or wheezing #8.5 grams fluticasone propionate 220 2 puff inhalation BID #12 grams 02/13/23 mcg/actuation HFA aerosol inhaler (Flovent HFA) miscellaneous medical supply 1 miscellaneous .4xday #120 ea 02/13/23 simvastatin 40 mg tablet 40 mg PO BEDTIME #90 tabs 02/21/23 mirabegron 25 mg tablet,extended 25 mg PO DAILY 90 days #90 tabs 03/13/23 release 24 hr (Myrbetriq) lisinopril 30 mg tablet 30 mg PO DAILY #90 tabs 03/19/23 naproxen 500 mg tablet 500 mg PO BEDTIME #30 tabs 03/20/23 baclofen 10 mg tablet 10 mg PO QID #120 tabs 03/21/23 pregabalin 100 mg capsule 100 mg PO BID #60 caps 03/21/23 benzonatate 200 mg capsule 200 mg PO TID PRN cough #30 caps 04/13/23 cefuroxime axetil 500 mg tablet 500 mg PO BID 7 days #14 tabs 04/13/23 prednisone 20 mg tablet 40 mg (2 x 20 mg) PO DAILY #10 tabs 04/13/23 Allergies Allergy/AdvReac Type Severity Reaction Status Date / Time No Known Allergies Allergy Verified 04/13/23 14:33 [facility] Past Medical History Medical History Encounter to establish care History of shingles Cellulitis Asthma Surgical History History of partial hysterectomy Status post right foot surgery Family History Family History Mother Heart failure Father Heart attack Other Mental health disorder Substance use disorder Social History Social History Housing: Apartment Alcohol intake: former Patient Tobacco Use Status: Never used Tobacco e-Cigarette/Vaping Use: Never Used Second Hand Smoke Exposure: No service: No Current occupational status: disabled Cognitive needs: Yes (wheelchair) Hearing needs: No Vision needs: Yes Physical Exam 2 Vital Signs: Vital Signs: Last Vital Signs Temp 97.9 F 04/12/23 23:49 Pulse 95 04/13/23 02:57 Resp 15 04/13/23 02:57 BP 144/67 H 04/13/23 02:57 Pulse Ox 96 04/13/23 02:57 O2 Del Method Room Air 04/13/23 02:57 O2 Flow Rate 2 04/12/23 23:49 BMI result Body Mass Index 36.3 Appearance: Alert. Oriented X3. Moderate respiratory distress Eyes: PERRLA, No Nystagmus ENT: Pharynx normal. Oral Mucosa moist Neck: Normal inspection. Neck supple. CVS: Normal heart rate and rhythm. Pulses normal. Respiratory: Moderate respiratory distress. Equal air entry bilateral, bilateral wheezing no crackles Abdomen: Soft and nontender. Bowel sounds are present, no mass palpable, Skin: Skin warm and dry. Normal skin color. Normal skin turgor. Extremities: 2+ lower extremity edema. No calf tenderness Neuro: Oriented X 3. No motor deficit. No sensory deficit.No cerebellar signs , cranial nerves II-XII intact Medications Administered Discontinued Medications Generic Name Dose Route Start Last Admin Trade Name Freq PRN Reason Stop Dose Admin Cefuroxime Axetil 500 mg 04/13/23 01:31 04/13/23 02:53 Cefuroxime Axetil 500 Mg Tablet PO 04/13/23 01:32 500 mg ONCE ONE Administration Albuterol Sulfate 5 mg/ 0 mg 04/13/23 01:43 04/13/23 01:45 Albuterol/Ipratropium 3 ml INHALE 04/13/23 01:44 7.5 each ONCE ONE Administration Guaifenesin/Codeine Phosphate 10 ml 04/13/23 01:29 04/13/23 02:53 Guaifen/Codeine Sf 200/20/10ml 10 Ml Liquid PO 04/13/23 01:30 10 ml ONCE ONE Administration Sodium Chloride 1,000 mls @ 999 mls/hr 04/12/23 23:38 04/13/23 00:58 Ns IV 04/13/23 00:38 Infused .Q1H1M ONE Infusion Magnesium Sulfate 2 gm in 50 mls @ 150 mls/hr 04/12/23 23:38 04/13/23 00:04 Magnesium Sulfate/H2o IV 04/12/23 23:57 Infused ONCE ONE Infusion Methylprednisolone Sodium Succinate 125 mg 04/12/23 23:38 04/12/23 23:44 Methylprednisolone Sod Succ 125 Mg/2 Ml Vial IVPUSH 04/12/23 23:39 125 mg ONCE ONE Administration Medical Decision Making Medical Decision Making [facility] Narrative: Patient obese with short neck with history of asthma according to patient's family patient does note sometimes likely patient has asthma along with sleep apnea syndrome but not been tested . At this time will give nebulizing treatment along with steroids check basic labs advised to follow up as outpatient with public safety dispatcher to get the sleep studies Patient labs are stable saturating 94% on room air will discharge patient home on prednisone advised to continue present treatment follow with public safety dispatcher for sleep studies Differential Diagnosis Differential Diagnoses: The differential diagnosis associated with the presentation includes Per [facility] Admission/Observation Consideration of admission/observation: Escalation of care including admission/observation considered Lab Data [facility] Lab Attestation statement: I reviewed the patient's lab results. 04/13/23 00:09 04/13/23 00:09 Labs: Lab Results 04/13/23 Range/Units 00:09 WBC 9.0 (4.8-10.8) X10*3/uL RBC 4.05 L (4.20-5.50) X10*6/uL Hgb 11.3 L (12.0-16.0) g/dl Hct 35.7 L (37.0-47.0) % MCV 88.1 (80.0-98.0) fL MCH 27.9 (27.0-33.0) pg MCHC 31.7 (31.0-35.0) g/dl RDW 14.7 (11.0-16.0) % Plt Count 242 (160-400) X10*3/uL MPV 9.6 (9.4-12.3) fL Immature Gran % (Auto) 1.0 H (0.0-0.4) % Neut % (Auto) 61.0 (45-73) % Lymph % (Auto) 26.7 (20-40) % Bond % (Auto) 8.8 (2-11) % Eos % (Auto) 2.1 (0-4) % Baso % (Auto) 0.4 (0-2) % Lymph # (Auto) 2.4 (1.2-4.9) X10*3/uL Bond # (Auto) 0.8 (0.1-1.2) X10*3/uL Eos # (Auto) 0.2 (0.0-0.4) X10*3/uL Baso # (Auto) 0.0 (0.0-0.2) X10*3/uL Abs Immat Gran (auto) 0.09 H (0.00-0.03) X10*3/uL Absolute Neuts (auto) 5.5 (2.0-8.3) x10*3/uL Absolute Nucleated RBC 0.000 (0.0-0.012) X10*3/uL Nucleated RBC % (auto) 0.0 (0.0-0.2) /100WBC Sodium 143 (135-145) mmol/L Potassium 3.8 (3.3-5.1) mmol/L Chloride 107 (96-108) mmol/L Carbon Dioxide 27 (22-29) mmol/L Anion Gap 13 (12-20) BUN 19 H (9-16) mg/dL Creatinine 0.68 (0.5-1.4) mg/dL Estim Creat Clear Calc 75.7 Estimated GFR > 60 Random Glucose 115 (60-115) mg/dL Calcium 8.6 D (8.4-10.2) mg/dL COVID-19 ([place]) Negative (Negative) COVID-19 Clin Com See Note Independent Interpretation I performed an independent interpretation of an: EKG and Plain X-Ray Interpretation: Normal sinus rhythm heart rate 82 beats per minute normal interval normal axis no acute ST-T no acute ischemic Radiology Impression Discussion of test interpretation with radiology: I have reviewed the radiologist's reading. Discharge Plan Discharge Clinical Impression: Asthma exacerbation Patient Disposition: Home, Self-Care Instructions: Asthma (ED) Additional Instructions: Can you take a nebulizing treatment every 4-6 hours as advised Prednisone as prescribed Cough drops as prescribed Antibiotic as prescribed Follow with PCP Prescriptions: New benzonatate 200 mg capsule 200 mg PO TID PRN (Reason: cough) Qty: 30 0RF prednisone 20 mg tablet 40 mg PO DAILY Qty: 10 0RF cefuroxime axetil 500 mg tablet 500 mg PO BID 7 Days Qty: 14 0RF No Action tizanidine 4 mg capsule 4 mg PO BEDTIME PRN (Reason: muscle spasticity) Qty: 10 0RF furosemide 40 mg tablet 40 mg PO DAILY Qty: 90 1RF sertraline 25 mg tablet 25 mg PO DAILY Qty: 90 1RF miscellaneous medical supply Misc 1 ea miscellaneous DAILY Qty: 30 11RF Rx Instructions: disposable bed pads miscellaneous medical supply Misc 1 ea miscellaneous .4xday Qty: 200 11RF Rx Instructions: Disposable body wash wipes loratadine 10 mg tablet 10 mg PO DAILY Qty: 30 3RF (DME) adult pullups medium See Rx Instructions .Route .MEDSUPPLY Qty: 210 11RF Rx Instructions: As directed simvastatin 40 mg tablet 40 mg PO BEDTIME Qty: 90 1RF lisinopril 30 mg tablet 30 mg PO DAILY Qty: 90 1RF naproxen 500 mg tablet 500 mg PO BEDTIME Qty: 30 0RF pregabalin 100 mg capsule 100 mg PO BID Qty: 60 0RF baclofen 10 mg tablet 10 mg PO QID Qty: 120 0RF ipratropium bromide 21 mcg (0.03 %) spray,non-aerosol intranasal hydrocortisone 1 % ointment 1 appl topical BID polyethylene glycol 3350 [Miralax] 17 gram/dose powder 17 g PO DAILY PRN (Reason: constipation) Qty: 238 0RF fluticasone propionate [Flonase Allergy Relief] 50 mcg/actuation spray,suspension 1 spray intranasal DAILY Qty: 100 0RF Rx Instructions: administer into each nostril albuterol sulfate 90 mcg/actuation HFA aerosol inhaler 2 puff inhalation Q4-6H PRN (Reason: shortness of breath or wheezing) Qty: 8.5 1RF albuterol sulfate 2.5 mg /3 mL (0.083 %) solution for nebulization 2.5 mg inhalation Q6H PRN (Reason: shortness of breath or wheezing) Qty: 75 0RF miscellaneous medical supply Misc 1 ea miscellaneous .4xday Qty: 120 11RF Rx Instructions: pull-ups, adult size large fluticasone propionate [Flovent HFA] 220 mcg/actuation HFA aerosol inhaler 2 puff inhalation BID Qty: 12 2RF peg 3350-electrolytes [Golytely] 236-22.74-6.74 -5.86 gram recon soln 240 ml PO Q10M 1 Days Qty: 4000 0RF Rx Instructions: until fecal effluent is clear; do not exceed a total volume of 2,000 mL cholecalciferol (vitamin D3) 50 mcg (2,000 unit) capsule 50 mcg PO DAILY Myrbetriq 25 mg tablet extended release 24 hr 25 mg PO DAILY 90 Days Qty: 90 2RF Interventions: ED Discharge Assessment Last Done: 04/13/23 03:50 Discharge Date/Time: 04/13/23 03:51
[2023-04-12] MEDS: Magnesium Sulfate/H2O 2 GM/50 ML PIGGYBACK IV (23:44)
[2023-04-12] MEDS: methylPREDNISolone Sod Succ 125 MG/2 ML VIAL IVPUSH (23:44)
[2023-04-12] MEDS: 0.9 % Sodium Chloride 1,000 ML 999 ML IV (23:45)
[2023-04-12 23:49] VITALS: TEMP 36.6; O2SAT 97
[2023-04-13 00:13] LABS: MANUAL DIFF FLAG NO
[2023-04-13 00:21] LABS: Basophils Percent Auto 0.4 % (0-2); Eosinophils Absolute Auto 0.2 X10*3/uL (0.0-0.4); Eosinophils Percent Auto 2.1 % (0-4); Hematocrit 35.7 % (37.0-47.0); Hemoglobin 11.3 g/dl (12.0-16.0); Imm Gran Abs Auto 0.09 X10*3/uL (0.00-0.03); Lymphocytes Absolute Auto 2.4 X10*3/uL (1.2-4.9); Lymphocytes Percent Auto 26.7 % (20-40); Mean Corpuscular HGB Conc 31.7 g/dl (31.0-35.0); Mean Corpuscular Hemoglobin 27.9 pg (27.0-33.0); Mean Corpuscular Volume 88.1 fL (80.0-98.0); Mean Platelet Volume 9.6 fL (9.4-12.3); Monocytes Absolute Auto 0.8 X10*3/uL (0.1-1.2); Monocytes Percent Auto 8.8 % (2-11); Neutrophils Absolute Auto 5.5 x10*3/uL (2.0-8.3); Platelet Count 242 X10*3/uL (160-400); Red Blood Count 4.05 X10*6/uL (4.20-5.50); Red Cell Distribution Width 14.7 % (11.0-16.0)
[2023-04-13 00:32] LABS: Anion Gap 13 (12-20); Blood Urea Nitrogen 19 mg/dL (9-16); Calcium 8.6 mg/dL (8.4-10.2); Carbon Dioxide 27 mmol/L (22-29); Chloride 107 mmol/L (96-108); Creatinine Clr Calc Pharmacy 75.7; Estimated Glomerular Filt Rate > 60; Glucose Random 115 mg/dL (60-115); Potassium 3.8 mmol/L (3.3-5.1); Sodium 143 mmol/L (135-145)
[2023-04-13 00:33] LABS: COVID-19 Test Negative (Negative); IDNOW Serial# 6674DD1D
[2023-04-13 01:01] VITALS: O2SAT 94
--- NOTE | 2023-04-13 01:01 | PC.NURSE ---
ivf and iv mag infused pt stating feeling better; 94% on RA resp even and unlabored.
[2023-04-13 01:44] VITALS: PULSE 74; RESP 14; O2SAT 98
[2023-04-13] MEDS: Albuterol Sulfate 5 MG, Albuterol/Iprat 2.5/0.5MG 3 ML 3 ML INHALE (01:45)
[2023-04-13] MEDS: cefuroxime axetiL 500 MG TABLET PO (02:53)
[2023-04-13] MEDS: guaiFEN/Codeine SF 200/20/10ML 10 ML LIQUID PO (02:53)
--- NOTE | 2023-04-13 02:55 | PC.NURSE ---
jessi tx finished pt medicated per jul. ra sats 96%.
[2023-04-13 02:57] VITALS: BP 144/67; PULSE 95; RESP 15; O2SAT 96
== END 2023-04-13 03:51 | disposition home or self-care (01) ==
PROVIDERS: Emergency Provider Internal Medicine; PCP Nurse Practitioner Family
DX: J45.901 Unspecified asthma with (acute) exacerbation (principal); R06.02 Shortness of breath; Z11.52 Encounter for screening for COVID-19; Z20.822 Contact with and (suspected) exposure to COVID-19; Z79.899 Other long term (current) drug therapy
CPT/HCPCS: 71045; 80048; 85025; 87635; 93005; 94640; 96361; 96365; 96375; 99284; 99285; J2930; J3475

== ENCOUNTER 2023-04-13 14:24 | Outpatient (AMB) | payer OTHER, SELFPAY ==
--- NOTE | 2023-04-13 14:24 | A.OFFPC_ITS ---
Intake Visit Reasons: Cough Intake Note: pt c/o cough, difficulty breathing due to asthma, no fevers. pt seen yesterday at [facility] for symptoms. 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 Accompanied by: Son Allergies No Known Allergies Allergy (Verified 04/13/23 14:33) Medication List - Last Reconciled 04/13/23 by DYLAN Perry [adult pullups As directed] albuterol sulfate 90 mcg/actuation 2 puffs inhalation Q4-6H PRN albuterol sulfate 2.5 mg (3 mL) inhalation Q6H PRN baclofen 10 mg PO QID benzonatate 200 mg PO TID PRN cefuroxime axetil 500 mg PO BID 7 days cholecalciferol (vitamin D3) 50 mcg PO DAILY fluticasone propionate 50 mcg/actuation (Flonase Allergy Relief) 1 spray intranasal DAILY fluticasone propionate 220 mcg/actuation (Flovent HFA) 2 puffs inhalation BID furosemide 40 mg PO DAILY hydrocortisone 1% 1 appl topical BID ipratropium bromide intranasal lisinopril 30 mg PO DAILY loratadine 10 mg PO DAILY mirabegron ER (Myrbetriq) 25 mg PO DAILY 90 days miscellaneous medical supply 1 ea miscellaneous DAILY miscellaneous medical supply 1 ea miscellaneous .4xday miscellaneous medical supply 1 ea miscellaneous .4xday naproxen 500 mg PO BEDTIME peg 3350-electrolytes 236-22.74-6.74 -5.86 gram (Golytely) 240 mL PO Q10M 1 day polyethylene glycol 3350 (Miralax) 17 grams PO DAILY PRN prednisone 40 mg (2 x 20 mg) PO DAILY pregabalin 100 mg PO BID sertraline 25 mg PO DAILY simvastatin 40 mg PO BEDTIME tizanidine 4 mg PO BEDTIME PRN Tobacco use date assessed: 04/13/23 Fall risk assessment: No Falls in past year Last assessed Fall Risk: 04/13/23 HPI Cough HPI Details This is a telehealth visit and patient was verified by name and date of . Patient is a Cameroonian-speaking and her son Franko was helping with interpretation. Patient is a 73-year-old female who presents today to follow-up after [facility] visit yesterday due to asthma exacerbation. Patient reports negative COVID test. She reports that her cough is improving, she still with very mild wheezing. She was discharged home with prednisone, antibiotic, and benzonatate, patient reports that she feels better today compared to yesterday. [facility] Medical History Encounter to establish care History of shingles Cellulitis Asthma Surgical History History of partial hysterectomy Status post right foot surgery Family History Mother Heart failure Father Heart attack Other Mental health disorder Substance use disorder Social History Housing: Apartment Alcohol intake: former Patient Tobacco Use Status: Never used Tobacco e-Cigarette/Vaping Use: Never Used Second Hand Smoke Exposure: No service: No Current occupational status: disabled Cognitive needs: Yes (wheelchair) Hearing needs: No Vision needs: Yes Questionnaire Thrive Questionnaire Date Thrive assessed: 08/09/22 AUDIT C Alcohol Use Questionnaire (AUDIT-C) 1. How often do you have a drink containing alcohol?: Never 3. How often do you have six or more drinks on one occasion?: Never Total Score: 0 Score Reviewed/Action Taken: No LAMIN-7 AMB Questionnaire LAMIN-7 Date LAMIN - 7 assessed: 02/13/23 Source: Developed by Drs. Vern Canchola, Anita Peters, Hardik Russo and colleagues, with an educational jeremie from [employer]. Review of Systems Const Denies body aches, Denies chills, Denies fever(s) and Denies headache(s) ENT Denies dizziness, Denies otalgia, Denies headache(s), Denies sinus pain and Denies sore throat Card Denies chest pain, Denies edema, Denies leg edema, Denies lightheadedness and Denies dyspnea Resp Denies chest congestion, Reports cough, Denies dyspnea and Reports wheezing GI Denies abdominal pain Musc Details: Bilateral leg pain Numbness and tingling in bilateral lower extremity from knee down Denies myalgias, Reports arthralgias and Denies joint swelling Skin/Breast Denies rash Neuro Denies dizziness and Denies headache(s) Aller/Immun Reports wheezing Physical exam (Primary Care) Tobacco/Smoking Status: Tobacco use Status Tobacco use date assessed 04/13/23 04/13/23 14:26 Patient Tobacco Use Status Never used Tobacco 04/13/23 14:26 e-Cigarette/Vaping Use Never Used 04/13/23 14:26 Thrive Assessment: Date of Thrive Assessment Date Thrive assessed 08/09/22 04/13/23 14:26 Const Other: This is a telehealth visit unable to obtain physical exam Speech is normal Telehealth Telehealth Location of provider rendering services: practice address Location of patient: address on file Patient Identification confirmed using: Name, : Yes Telehealth method: voice only Patient verbally consented to treatment: Yes Patient verbally consented to billing insurance company: Yes Patient informed of any privacy concerns related to visit: Yes Minutes spent on Phone/Video with Pt.: 5 Assessment and Plan Assessment & Plan (1) Asthma exacerbation: Code(s): J45.901 - Unspecified asthma with (acute) exacerbation Plan: Patient reports that she feels much better today compared to yesterday. Patient is to continue antibiotic, prednisone, benzonatate, and inhalers/nebulizer treatments as prescribed. Signs and symptoms reviewed when to notify provider or go to the emergency department. Patient and her son agreed with the plan. Coding Level of Care Code Tele Est Pt Level 3 (37504) Diagnoses Asthma exacerbation J45.901
== END 2023-04-13 14:46 | disposition home or self-care (01) ==
LOC: HO.HMGH 14:24
PROVIDERS: PCP Nurse Practitioner Family; Visit Provider Nurse Practitioner Family
DX: J45.901 Unspecified asthma with (acute) exacerbation (principal)
CPT/HCPCS: 99441

== ENCOUNTER 2023-05-02 08:23 | Outpatient (REF) | payer OTHER, SELFPAY ==
--- NOTE | ~2023-05-02 | MM_ITS ---
EXAMINATION: BONE DENSITOMETRY CLINICAL INDICATION: Menopause. COMPARISON: This is the patient's baseline examination. TECHNIQUE: Using a [employer] vascular solution DXA System (software version: 13.1) manufactured by [employer], dual-energy x-ray absorptiometry was performed of the lumbar spine and left hip. The images are of good technical quality. Summary results are attached. FINDINGS: AP SPINE L1-L4 (excluding L2 and L3): The data of L1-L4 has been changed to exclude the L2 and L3 vertebral bodies, because degenerative sclerosis at these levels may cause overestimation of lumbar spine density. BMD 1.009 g/cm2, Z-score -0.1, T-score -1.3, osteopenia. LEFT FEMUR, NECK: BMD 0.664 g/cm2, Z-score -1.2, T-score -2.7, osteoporosis. LEFT FEMUR, TOTAL: BMD 0.735 g/cm2, Z-score -0.9, T-score -2.2, osteopenia. IDENTIFIED RISK FACTORS: Menopause, hysterectomy, recurrent falls. HISTORY OF FRACTURE: None listed. MEDICATIONS: None listed. MM/XR DEXA axial skeleton IMPRESSION: 1. DIAGNOSIS: Osteoporosis based on the lowest T-score value of -2.7 in the femoral neck applying World Health Organization criteria. 2. 10-YEAR FRACTURE RISK PREDICTION, FRAX: According to the guidelines, FRAX calculation should only be performed on patients in the osteopenia bone density category. Therefore, FRAX was not performed on this patient. 3. Treatment Recommendations: NOF guidelines recommend consideration for treatment in postmenopausal women and men age 50 and older presenting with the following: -A hip or vertebral (clinical or morphometric) fracture. -T-score less than or equal to -2.5 at the femoral neck or spine after appropriate evaluation to exclude secondary causes. -Low bone mass at the hip or spine and a 10-year fracture probability by FRAX of greater than or equal to 3% for hip fracture or greater than or equal to 20% for major osteoporotic fracture based on the [place] adapted WHO algorithm. 4. Other Recommendations: All treatment decisions require clinical judgment and consideration of individual patient factors, including patient preferences, comorbidities, previous drug use, risk factors not captured in the FRAX model (e.g. frailty, falls, vitamin D deficiency, increased bone turnover, interval significant decline in bone density) and possible under or overestimation of fracture risk by FRAX. Additional medical evaluation for secondary cause of low bone mineral density may be appropriate. FUTURE SCAN RECOMMENDATION: People with diagnosed cases of osteoporosis or at high risk for fracture should have regular bone mineral density tests. For patients eligible for Medicare, routine testing is allowed once every 2 years. The testing frequency can be increased to one year for patients who have rapidly progressing disease, those who are receiving or discontinuing medical therapy to restore bone mass, or have additional risk factors.
== END 2023-05-02 08:24 | disposition home or self-care (01) ==
LOC: HO.MAMMO 08:23
PROVIDERS: PCP Nurse Practitioner Family; Visit Provider Nurse Practitioner Family
DX: Z12.31 Encounter for screening mammogram for malignant neoplasm of breast (principal); Z13.820 Encounter for screening for osteoporosis; Z78.0 Asymptomatic menopausal state
CPT/HCPCS: 77063; 77067; 77080

== ENCOUNTER → 2023-05-02 09:30 | Outpatient (BNV) | payer OTHER, SELFPAY | PROVIDERS: PCP Nurse Practitioner Family; Visit Provider Radiology Diagnostic Radiology | DX: Z12.31 Encounter for screening mammogram for malignant neoplasm of breast (principal) | CPT/HCPCS: 77063; 77067 ==

== ENCOUNTER 2023-05-08 07:21 | Outpatient (REF) | payer OTHER, SELFPAY ==
[2023-05-08 08:23] LABS: Alanine Aminotransferase 13 U/L (0-31); Albumin Level 3.7 g/dL (3.5-5.0); Alkaline Phosphatase 84 U/L (39-117); Anion Gap 13 (12-20); Aspartate Amino Transferase 13 U/L (5-31); Bilirubin Total 0.3 mg/dL (0.0-1.0); Blood Urea Nitrogen 17 mg/dL (9-16); Calcium 9.3 mg/dL (8.4-10.2); Carbon Dioxide 29 mmol/L (22-29); Chloride 105 mmol/L (96-108); Cholesterol 149 mg/dL (<200); Estimated Glomerular Filt Rate > 60; Glucose Fasting 93 mg/dL (60-99); HDL Cholesterol 31 mg/dL (>40); LDL Cholesterol Calculated 72 mg/dL (<100); Potassium 4.3 mmol/L (3.3-5.1); Sodium 143 mmol/L (135-145); Total Protein 6.7 g/dL (6.5-8.0); Triglycerides 233 mg/dL (<150)
== END 2023-05-08 07:22 | disposition home or self-care (01) ==
LOC: HO.LAB 07:21
PROVIDERS: PCP Nurse Practitioner Family; Visit Provider Nurse Practitioner Family
DX: M17.0 Bilateral primary osteoarthritis of knee (principal); I10 Essential (primary) hypertension; E78.5 Hyperlipidemia, unspecified
CPT/HCPCS: 20610; 36415; 80053; 80061; J1040

== ENCOUNTER 2023-05-08 08:34 | Outpatient (AMB) | payer MEDICARE, SELFPAY ==
--- NOTE | 2023-05-08 08:47 | A.OFFVIS_ITS ---
Intake Intake Visit Reasons: ov-B/L knee pain last inj 01/09/23 Intake Note: Rita is a 72 year old female who presents today in a wheelchair for a follow up of bilateral knee pain, last injections 01/09/23. Patient reports her last injection gave her 4 months of relief and she would like to repeat her injections. Allergies No Known Allergies Allergy (Verified 05/08/23 08:56) HPI ov-B/L knee pain last inj 01/09/23 HPI Details 73-year-old female, who is Somali speak ing, presents in the office today for a follow up of bilateral knee pain. The patient had cortisone injections in the bilateral knees on 01/09/2023. She reports her last injection gave her about 4 months of relief. She would like a repeat injection while in the office today. [facility] Medical History Encounter to establish care History of shingles Cellulitis Asthma Surgical History History of partial hysterectomy Status post right foot surgery Family History Mother Heart failure Father Heart attack Other Mental health disorder Substance use disorder Social History Housing: Apartment Alcohol intake: former Patient Tobacco Use Status: Never used Tobacco e-Cigarette/Vaping Use: Never Used Second Hand Smoke Exposure: No service: No Current occupational status: disabled Cognitive needs: Yes (wheelchair) Hearing needs: No Vision needs: Yes Review of Systems Const All systems reviewed & are unremarkable except as noted in HPI and below Physical Exam Const General: cooperative, healthy appearing and no acute distress Resp Effort & Inspection: normal respiratory effort and able to speak in complete sentences Cardio Rate: regular rate Peripheral pulses: Peripheral pulses 2+ throughout GI Palpation (GI): Soft to palpation Skin Lesions: no lesions Rashes: no rashes Extrem Other: Bilateral knees: Normal to inspection. No ecchymosis, erythema, or joint effusion. Extension to about 40 degrees. Flexion to 80 degrees. Global tenderness to palpation. Unable to assess Radha's or anterior drawer. NVI. Office Procedures Joint Injection/Drain Joint Injection/Drain Primary Site: right knee Secondary Site: left knee Prep: site was prepped using aseptic technique, ethochloride spray was applied and injection warnings given Injected: 80 mg of, DepoMedrol, with 8 mL of (2% plain lido) and in the joint Approach Used: anterolateral Procedure: The patient tolerated the procedure well, but had some pain with the injection and there was some relief with the local anesthesia Coding - Large joint Procedure code (CPT) selection complete Assessment & Plan Assessment & Plan (1) Osteoarthritis of knees, bilateral: Code(s): M17.0 - Bilateral primary osteoarthritis of knee Qualifiers: Osteoarthritis type: unspecified Qualified Code(s): M17.0 - Bilateral primary osteoarthritis of knee Plan Ms. Fabby Glez is a 73-year-old female, who is Somali speaking, presents in the office today for a follow up of bilateral knee pain. The patient had cortisone injections in the bilateral knees on 01/09/2023. She reports her last injection gave her about 4 months of relief. She would like a repeat injection while in the office today. The patient was offered a cortisone injection in the bilateral knees with 80 mg of DepoMedrol. The patient was explained the risk, benefits, and alternatives to receiving this injection. After receiving consent for the injection, the patient had the procedure done while in office today. The patient tolerated the procedure well with no complications. Follow up will be PRN, or sooner if needed. Patient Instructions: Scribed for Shey Gongora PA-C by Felicitas Sultana medical record technician, on 05/07/2023 at 8:36 am, EST. Coding Level of Care Code Est Pt Level 3 (97220) Diagnoses Osteoarthritis of both knees, unspecified osteoarthritis type M17.0 Osteoarthritis type: unspecified CPT Codes Coding - Large joint: 82266 - Large joint ([id number])
== END 2023-05-08 09:05 | disposition home or self-care (01) ==
PROVIDERS: Visit Provider Physician Assistant
DX: M17.0 Bilateral primary osteoarthritis of knee (principal)
CPT/HCPCS: 20610

== ENCOUNTER 2023-05-15 08:45 | Outpatient (AMB) | payer OTHER, SELFPAY ==
[2023-05-15 08:46] VITALS: BP 120/68; PULSE 69; O2SAT 95
--- NOTE | 2023-05-15 08:46 | MHC.PC.OV ---
Vital Signs 05/15/23 08:46 Height 5 ft 2 in BMI Reason not done Patient refused/unable BP 120/68 Blood Pressure Location Rt brachial Position Sitting Pulse 69 Pulse Source Pulse Oximeter Pulse Oximetry (%) 95 Oxygen Delivery Method Room Air Intake Visit Reasons: F/U HLD, HTN Director Telecommunications Required: No Allergies No Known Allergies Allergy (Verified 05/15/23 09:23) Medication List - Last Reconciled 05/15/23 by DYLAN Perry [adult pullups As directed] albuterol sulfate 90 mcg/actuation 2 puffs inhalation Q4-6H PRN albuterol sulfate 2.5 mg (3 mL) inhalation Q6H PRN baclofen 10 mg PO QID benzonatate 200 mg PO TID PRN cholecalciferol (vitamin D3) 50 mcg PO DAILY fluticasone propionate 50 mcg/actuation (Flonase Allergy Relief) 1 spray intranasal DAILY fluticasone propionate 220 mcg/actuation (Flovent HFA) 2 puffs inhalation BID furosemide 40 mg PO DAILY hydrocortisone 1% 1 appl topical BID ipratropium bromide intranasal lisinopril 30 mg PO DAILY loratadine 10 mg PO DAILY mirabegron ER (Myrbetriq) 25 mg PO DAILY 90 days miscellaneous medical supply 1 ea miscellaneous DAILY miscellaneous medical supply 1 ea miscellaneous .4xday miscellaneous medical supply 1 ea miscellaneous .4xday naproxen 500 mg PO BEDTIME peg 3350-electrolytes 236-22.74-6.74 -5.86 gram (Golytely) 240 mL PO Q10M 1 day polyethylene glycol 3350 (Miralax) 17 grams PO DAILY PRN pregabalin 100 mg PO BID sertraline 25 mg PO DAILY simvastatin 40 mg PO BEDTIME tizanidine 4 mg PO BEDTIME PRN Tobacco use date assessed: 05/15/23 Fall risk assessment: No Falls in past year Last assessed Fall Risk: 05/15/23 Dental Screening Dental Screen Date: 05/15/23 Did you have a dental visit in the last 12 months?: Yes Did you have a dental problem in the last 6 months where you did not have access to dental care?: No Was dental information given to patient?: Patient has dentist HPI F/U HLD, HTN HPI Details Patient is a 73-year-old female who presents today for a routine follow-up.?Medical history significant for constipation, bilateral knee pain - followed by [facility] for knee injections, wheelchair bound, hypertension, bilateral leg pain below knee, GERD, depression, anxiety, hyperlipidemia, and asthma.?She is compliant with medications and denies side effects.? Patient denies shortness of breath or chest pain. Patient requested new prescription for nebulizer machine as her machine is 12 years old and smells like something lane inside. Patient is accompanied by her son Franko who helps with Tajik interpretation.? Recent blood work results reviewed with the patient. [facility] Medical History Encounter to establish care History of shingles Cellulitis Asthma Surgical History History of partial hysterectomy Status post right foot surgery Family History Mother Heart failure Father Heart attack Other Mental health disorder Substance use disorder Social History Housing: Apartment Alcohol intake: former Patient Tobacco Use Status: Never used Tobacco e-Cigarette/Vaping Use: Never Used Second Hand Smoke Exposure: No service: No Current occupational status: disabled Cognitive needs: Yes (wheelchair) Hearing needs: No Vision needs: Yes Questionnaire Thrive Questionnaire Date Thrive assessed: 08/09/22 AUDIT C Alcohol Use Questionnaire (AUDIT-C) 1. How often do you have a drink containing alcohol?: Never 3. How often do you have six or more drinks on one occasion?: Never Total Score: 0 Score Reviewed/Action Taken: No LAMIN-7 AMB Questionnaire LAMIN-7 Date LAMIN - 7 assessed: 02/13/23 Source: Developed by Drs. Vern Canchola, Anita Peters, Hardik Russo and colleagues, with an educational jeremie from [id number]. Review of Systems Const Denies body aches, Denies chills, Denies fever(s) and Denies headache(s) ENT Denies dizziness, Denies otalgia, Denies headache(s), Denies sinus pain and Denies sore throat Card Denies chest pain, Denies edema, Denies leg edema, Denies lightheadedness and Denies dyspnea Resp Denies chest congestion, Reports cough, Denies dyspnea and Reports wheezing GI Denies abdominal pain Musc Details: Bilateral leg pain Numbness and tingling in bilateral lower extremity from knee down Denies myalgias, Reports arthralgias and Denies joint swelling Skin/Breast Denies rash Neuro Denies dizziness and Denies headache(s) Aller/Immun Reports wheezing Physical exam (Primary Care) Vital Signs: Last Vital Signs Pulse 69 05/15/23 08:46 BP 120/68 05/15/23 08:46 Pulse Ox 95 05/15/23 08:46 Oxygen Delivery Method Room Air 05/15/23 08:46 Tobacco/Smoking Status: Tobacco use Status Tobacco use date assessed 05/15/23 05/15/23 08:47 Patient Tobacco Use Status Never used Tobacco 05/15/23 08:47 e-Cigarette/Vaping Use Never Used 05/15/23 08:47 Thrive Assessment: Date of Thrive Assessment Date Thrive assessed 08/09/22 05/15/23 08:47 Const Other: Patient is in a wheelchair Patient unable to transfer on the exam table General: cooperative and no acute distress Orientation/consciousness: patient oriented x3 HENMT Head: Yes normocephalic and Yes atraumatic Face and sinus: Yes sinuses nontender Mouth: oropharynx normal and moist mucous membranes Throat: Yes posterior oropharynx normal Eyes General: appearance normal, both eyes and all related structures Pupils: Equal, round and reactive pupils present EOM: EOMs intact bilaterally Neck Neck: Yes normal visual inspection, Yes full ROM and Yes no lymphadenopathy Thyroid: Thyroid normal Resp Effort & Inspection: normal respiratory effort and able to speak in complete sentences Auscultation: clear to auscultation bilaterally, no crackles, no rales, no rhonchi and no wheezes Cardio Rate: regular rate Rhythm: regular rhythm Heart sounds: S1 normal heart sound present, S2 normal heart sound present and no murmurs GI Palpation (GI): Soft to palpation, not firm, nontender, no guarding, not rigid and no hepatosplenomegaly Auscultation: normal bowel sounds Skin General skin exam: no rashes or lesions noted Neuro General: patient oriented x3 Cranial nerves: Yes Equal, round and reactive pupils present Extrem Other: No edema to bilateral lower extremity BLE limited ROM d/t pain Bilateral upper extremity full range of motion Assessment and Plan Assessment & Plan (1) Hypertension: Code(s): I10 - Essential (primary) hypertension Plan: Furosemide 40 mg daily Lisinopril 30 mg daily Low-sodium diet Goal BP equal or less than 140/90 (2) Bilateral leg pain: Code(s): M79.604 - Pain in right leg; M79.605 - Pain in left leg Plan: Continue Lyrica 100 mg b.i.d., naproxen 500 mg at bedtime, and tizanidine 4 mg at bedtime as needed, and baclofen 10 mg q.i.d. Patient will be seeing Neurology 07/2023, patient was seen by Neurology before COVID pandemic for bilateral leg pain (3) GERD (gastroesophageal reflux disease): Code(s): K21.9 - Gastro-esophageal reflux disease without esophagitis Plan: Continue [id number] Tums as needed Avoid GERD trigger foods Do not lay down 2-3 hours after evening meal (4) Depression: Code(s): F32.A - Depression, unspecified Qualifiers: Depression Type: other depression Qualified Code(s): F32.89 - Other specified depressive episodes Plan: Sertraline 25 mg daily (5) Anxiety: Code(s): F41.9 - Anxiety disorder, unspecified Plan: Sertraline 25 mg daily (6) Leg edema: Code(s): R60.0 - Localized edema Plan: Continue Lasix 40 mg daily Elevate bilateral lower extremity Low-salt diet (7) Hyperlipidemia: Code(s): E78.5 - Hyperlipidemia, unspecified Plan: LDL 72 04/2023 Simvastatin 40 mg at bedtime Low-cholesterol diet (8) Asthma: Code(s): J45.909 - Unspecified asthma, uncomplicated Plan: Stable Continue albuterol inhaler as needed Continue Flovent 2 puffs b.i.d. (9) Constipation: Code(s): K59.00 - Constipation, unspecified Plan: MiraLax daily p.r.n. Encouraged to increase fluid consumption and dietary fiber (10) Osteoporosis: Code(s): M81.0 - Age-related osteoporosis without current pathological fracture Plan: Bone density screen 04/2023 with osteoporosis, endocrinology referral for an evaluation and treatment Plan Follow-up in 3 months or sooner as needed Orders: Orders Lipid Panel 3 Months E78.5 - Hyperlipidemia, unspecified Comprehensive [place]. Panel Fast 3 Months I10 - Essential (primary) hypertension Referrals Endocrinology Referral M81.0 - Age-related osteoporosis without current pathological fracture Medications: New miscellaneous medical supply nebulizer machine with tubing 1 ea miscellaneous DAILY 1 ea 0RF J45.909 - Unspecified asthma, uncomplicated Coding Level of Care Code Est Pt Level 4 (57737) Diagnoses Hypertension I10 Bilateral leg pain M79.604; M79.605 GERD (gastroesophageal reflux disease) K21.9 Other depression F32.89 Depression Type: other depression Anxiety F41.9 Leg edema R60.0 Hyperlipidemia E78.5 Asthma J45.909 Constipation K59.00 Osteoporosis M81.0
== END 2023-05-15 09:43 | disposition home or self-care (01) ==
PROVIDERS: PCP Nurse Practitioner Family; Visit Provider Nurse Practitioner Family
DX: I10 Essential (primary) hypertension (principal); M79.604 Pain in right leg; M79.605 Pain in left leg; K21.9 Gastro-esophageal reflux disease without esophagitis; F32.89 Other specified depressive episodes; F41.9 Anxiety disorder, unspecified; R60.0 Localized edema; E78.5 Hyperlipidemia, unspecified; J45.909 Unspecified asthma, uncomplicated; K59.00 Constipation, unspecified; M81.0 Age-related osteoporosis without current pathological fracture
CPT/HCPCS: 99214

== ENCOUNTER 2023-08-14 09:16 | Outpatient (AMB) | payer OTHER, SELFPAY ==
--- NOTE | 2023-08-14 09:22 | MHC.OFFVIS ---
Intake Intake Visit Reasons: OV - B/L knee OA, last inj 05/08/23 Intake Note: Rita is a 72 year old female who presents today in a wheelchair for a follow up of bilateral knee OA, last injections 05/08/23. Patient reports that her last injection gave her 3 - 4 months of relief and would like to repeat. Allergies No Known Allergies Allergy (Verified 05/15/23 09:23) HPI OV - B/L knee OA, last inj 05/08/23 HPI Details 73-year-old female, who is Irish speaking, presents in the office today for a follow up of bilateral knee pain. I last saw the patient in the office on 05/08/2023 when she had a cortisone injections in the bilateral knees. While in the office today the patient reports her injection gave her 3-4 months of relief and she would like to repeat the injections. Patient presents in a wheelchair. [facility] Medical History Encounter to establish care History of shingles Cellulitis Asthma Surgical History History of partial hysterectomy Status post right foot surgery Family History Mother Heart failure Father Heart attack Other Mental health disorder Substance use disorder Social History Housing: Apartment Alcohol intake: former Patient Tobacco Use Status: Never used Tobacco e-Cigarette/Vaping Use: Never Used Second Hand Smoke Exposure: No service: No Current occupational status: disabled Cognitive needs: Yes (wheelchair) Hearing needs: No Vision needs: Yes Review of Systems Const All systems reviewed & are unremarkable except as noted in HPI and below Physical Exam Const General: cooperative, healthy appearing and no acute distress Resp Effort & Inspection: normal respiratory effort and able to speak in complete sentences Cardio Rate: regular rate Peripheral pulses: Peripheral pulses 2+ throughout GI Palpation (GI): Soft to palpation Skin Lesions: no lesions Rashes: no rashes Extrem Other: Bilateral knees: Normal to inspection. No ecchymosis, erythema, or joint effusion. Extension to about 40 degrees. Flexion to 80 degrees. Global tenderness to palpation. Unable to assess Radha's or anterior drawer. NVI. Office Procedures Joint Injection/Drain Joint Injection/Drain Primary Site: right knee Secondary Site: left knee Prep: site was prepped using aseptic technique, ethochloride spray was applied and injection warnings given Injected: 80 mg of, DepoMedrol, with 8 mL of (2% plain lido ) and in the joint Approach Used: anterolateral Procedure: The patient tolerated the procedure well, but had some pain with the injection and there was some relief with the local anesthesia Coding - Large joint Procedure code (CPT) selection complete Assessment & Plan Assessment & Plan (1) Osteoarthritis of knees, bilateral: Code(s): M17.0 - Bilateral primary osteoarthritis of knee Qualifiers: Osteoarthritis type: unspecified Qualified Code(s): M17.0 - Bilateral primary osteoarthritis of knee Plan Ms. Fabby Glez is a 73-year-old female, who is Irish speaking, presents in the office today for a follow up of bilateral knee pain. I last saw the patient in the office on 05/08/2023 when she had a cortisone injections in the bilateral knees. While in the office today the patient reports her injection gave her 3-4 months of relief and she would like to repeat the injections. Patient presents in a wheelchair. She continue to be wheelchair bound at baseline. The patient was offered a cortisone injection in the bilateral knees with 80 mg of DepoMedrol. The patient was explained the risk, benefits, and alternatives to receiving this injection. After receiving consent for the injection, the patient had the procedure done while in office today. The patient tolerated the procedure well with no complications. Follow up will be PRN, or sooner if needed. Patient Instructions: Scribed by Felicitas Sultana neuropsychology medical consultant, for Shey Gongora PA-C on 08/14/2023 at 9:25 am, EST. Coding Level of Care Code Est Pt Level 3 (20402) Diagnoses Osteoarthritis of both knees, unspecified osteoarthritis type M17.0 Osteoarthritis type: unspecified CPT Codes Coding - Large joint: 99053 - Large joint ([id number])
== END 2023-08-14 09:53 | disposition home or self-care (01) ==
PROVIDERS: PCP Nurse Practitioner Family; Visit Provider Physician Assistant
DX: M17.0 Bilateral primary osteoarthritis of knee (principal)
CPT/HCPCS: 20610; 99213

== ENCOUNTER → 2023-08-14 09:16 | Outpatient (BNVA) | payer OTHER, SELFPAY | PROVIDERS: PCP Nurse Practitioner Family; Visit Provider Physician Assistant | DX: M17.0 Bilateral primary osteoarthritis of knee (principal) | CPT/HCPCS: 20610; 99212; J1040 ==

== ENCOUNTER 2023-08-20 08:06 | Outpatient (AMB) | payer OTHER, SELFPAY ==
--- NOTE | 2023-08-20 08:10 | MHC.OFFVIS ---
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 Pt reports for the last 5 years she feels pins and needles then numbness. She states it started off as intermittent numbness, but recently has become more constant. 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 Required: No Allergies No Known Allergies Allergy (Verified 08/20/23 08:10) Medication List - Last Reconciled 08/20/23 by Sharla Pearce MD [adult pullups As directed] albuterol sulfate 2.5 mg (3 mL) inhalation Q6H PRN albuterol sulfate 90 mcg/actuation 2 puffs inhalation Q4-6H PRN baclofen 10 mg PO QID benzonatate 200 mg PO TID PRN cholecalciferol (vitamin D3) 50 mcg PO DAILY fluticasone propionate 50 mcg/actuation (Flonase Allergy Relief) 1 spray intranasal DAILY fluticasone propionate 220 mcg/actuation 2 puffs inhalation BID furosemide 40 mg PO DAILY hydrocortisone 1% 1 appl topical BID ipratropium bromide intranasal lisinopril 30 mg PO DAILY loratadine 10 mg PO DAILY mirabegron ER (Myrbetriq) 25 mg PO DAILY 90 days miscellaneous medical supply 1 ea miscellaneous DAILY miscellaneous medical supply 1 ea miscellaneous DAILY miscellaneous medical supply 1 ea miscellaneous .4xday miscellaneous medical supply 1 ea miscellaneous .4xday naproxen 500 mg PO BEDTIME nebulizers As directed peg 3350-electrolytes 236-22.74-6.74 -5.86 gram (Golytely) 240 mL PO Q10M 1 day polyethylene glycol 3350 (Miralax) 17 grams PO DAILY PRN pregabalin 100 mg PO BID sertraline 25 mg PO DAILY simvastatin 40 mg PO BEDTIME tizanidine 4 mg PO BEDTIME PRN HPI HPI Comments History of Present Illness Details 73y/o female comes for evaluation of numbness and tingling in distal lower extremity.she has been about wheelchair bound for 15 years . Her son says it runs in the family where the knees bend inwards and there is weakness of legs. Her problems started at age 34 and she has been in a wheel chair for about 15 years- paraplegia ? hereditary paraplegia. Her son is also her [employer] who helps with her ADLs. SHe reports numbness and tingling in her distal lower extremities that started about 9 years ago and has been worsening. Patient has urinary incontinence . Bowel movements are regular. she denies back pain but mild neck pain. [facility] Medical History (Updated 08/20/23 @ 14:02 by Sharla Pearce MD) Paraplegia Encounter to establish care History of shingles Cellulitis Asthma Surgical History History of partial hysterectomy Status post right foot surgery Family History Mother Heart failure Father Heart attack Other Mental health disorder Substance use disorder Social History Housing: Apartment Alcohol intake: former Patient Tobacco Use Status: Never used Tobacco e-Cigarette/Vaping Use: Never Used Second Hand Smoke Exposure: No service: No Current occupational status: disabled Cognitive needs: Yes (wheelchair) Hearing needs: No Vision needs: Yes Physical Exam Vital Signs: Last Vital Signs Pulse 66 08/20/23 08:11 Resp 17 08/20/23 08:11 BP 100/60 08/20/23 08:11 Pulse Ox 96 08/20/23 08:11 Oxygen Delivery Method Room Air 08/20/23 08:11 Const Orientation/consciousness: patient oriented x3 Eyes Pupils: Equal, round and reactive pupils present Neuro Other: Motor- UE Right 4+/5 Left 5/5 LE- bouchra 1-2/5 Mildly increased tone in LE Decreased PP and light touch LE General: patient oriented x3 Cranial nerves: Yes Facial sensation intact/muscles of mastication intact, Yes Equal, round and reactive pupils present, Yes Nystagmus not present and Yes Normal facial strength present Deep tendon reflexes (DTR's): Right triceps reflex intensity grade: 3+, Left triceps reflex intensity grade: 3+, Rt Biceps (C5, C6): 3+, Left biceps reflex intensity grade: 3+, Right brachioradialis reflex intensity grade: 3+, Left brachioradialis reflex intensity grade: 3+, Right patellar reflex intensity grade: 3+ and Left patellar reflex intensity grade: 3+ Assessment & Plan Assessment & Plan (1) Numbness and tingling of both legs below knees: Code(s): R20.0 - Anesthesia of skin; R20.2 - Paresthesia of skin (2) 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
[2023-08-20 08:11] VITALS: BP 100/60; PULSE 66; RESP 17; O2SAT 96
== END 2023-08-20 08:41 | disposition home or self-care (01) ==
PROVIDERS: PCP Nurse Practitioner Family; Visit Provider Psychiatry & Neurology Neurology
DX: R20.0 Anesthesia of skin (principal); R20.2 Paresthesia of skin; G82.20 Paraplegia, unspecified
CPT/HCPCS: 99204

== ENCOUNTER → 2023-08-20 08:06 | Outpatient (BNVA) | payer OTHER, SELFPAY | PROVIDERS: PCP Nurse Practitioner Family; Visit Provider Psychiatry & Neurology Neurology | DX: R20.0 Anesthesia of skin (principal); R20.2 Paresthesia of skin; G82.20 Paraplegia, unspecified; Z99.3 Dependence on wheelchair | CPT/HCPCS: 99202 ==

== ENCOUNTER 2023-09-12 09:10 | Outpatient (AMB) | payer OTHER, SELFPAY ==
--- NOTE | 2023-09-12 09:24 | A.OFFVIS_ITS ---
Intake Intake Visit Reasons: 6 mo follow up/ PVR Intake Note: Patient presents for tele follow up urinary incontinence Urology Medications: myrbetriq Blood Thinner: none PVR: 54ml's Allergies No Known Allergies Allergy (Verified 09/12/23 09:44) Medication List - Last Reconciled 09/12/23 by EULA Lyons [adult pullups As directed] albuterol sulfate 2.5 mg (3 mL) inhalation Q6H PRN albuterol sulfate 90 mcg/actuation 2 puffs inhalation Q4-6H PRN baclofen 10 mg PO QID benzonatate 200 mg PO TID PRN cholecalciferol (vitamin D3) 50 mcg PO DAILY fluticasone propionate 50 mcg/actuation (Flonase Allergy Relief) 1 spray intranasal DAILY fluticasone propionate 220 mcg/actuation 2 puffs inhalation BID furosemide 40 mg PO DAILY hydrocortisone 1% 1 appl topical BID ipratropium bromide intranasal lisinopril 30 mg PO DAILY loratadine 10 mg PO DAILY mirabegron ER (Myrbetriq) 25 mg PO DAILY 90 days miscellaneous medical supply 1 ea miscellaneous DAILY miscellaneous medical supply 1 ea miscellaneous DAILY miscellaneous medical supply 1 ea miscellaneous .4xday miscellaneous medical supply 1 ea miscellaneous .4xday naproxen 500 mg PO BEDTIME nebulizers As directed peg 3350-electrolytes 236-22.74-6.74 -5.86 gram (Golytely) 240 mL PO Q10M 1 day polyethylene glycol 3350 (Miralax) 17 grams PO DAILY PRN pregabalin 100 mg PO BID sertraline 25 mg PO DAILY simvastatin 40 mg PO BEDTIME tizanidine 4 mg PO BEDTIME PRN HPI HPI Comments History of Present Illness Details Rita is a very pleasant 73-year-old Persian-speaking female patient of Dr. Oconnell who was accompanied by her son at today's visit. She has a past medical history of constipation, bilateral knee pain - followed by [facility] for knee injections, wheelchair bound, hypertension, bilateral leg pain below knee, GERD, depression, anxiety, hyperlipidemia, and asthma. She presents to the office today for follow-up of her overactive bladder. In discussion with the patient and her son today she reports to be happy with current voiding parameters on 25 mg of Myrbetriq. She discusses feeling it has been extremely helpful with her lower urinary tract symptoms. She does report noting urinary urgency and frequency after taking her water pill otherwise she denies any bothersome urinary issues or concerns. Previous workup has included a retroperitoneal ultrasound noting right kidney with no hydronephrosis or renal calculi. Possible invaginating fat versus angiomyolipoma midpole measuring 1.3 x 2.0 x 1.4 cm. Left kidney with no calculi and or hydronephrosis noted. Discussed importance of continuing to practice timed voiding/scheduled toileting given decrease in mobility. When asked she denies hematuria, dysuria, foul smelling urine, changes to urinary stream, flank pain, fever, and or chills. Unable to obtain urine for urinalysis however PVR 54 mL. She otherwise offers no issues or concerns at this time. [facility] Medical History Paraplegia Encounter to establish care History of shingles Cellulitis Asthma Surgical History History of partial hysterectomy Status post right foot surgery Family History Mother Heart failure Father Heart attack Other Mental health disorder Substance use disorder Social History Housing: Apartment Alcohol intake: former Patient Tobacco Use Status: Never used Tobacco e-Cigarette/Vaping Use: Never Used Second Hand Smoke Exposure: No service: No Current occupational status: disabled Cognitive needs: Yes (wheelchair) Hearing needs: No Vision needs: Yes Review of Systems Const Reports as per HPI Eyes Reports no additional complaints ENT Reports no additional complaints Card Reports as per HPI Resp Reports as per HPI GI Reports as per HPI Reports as per HPI Musc Reports as per HPI Neuro Reports as per HPI Psych Reports as per HPI Physical Exam Const General: cooperative, healthy appearing, comfortable, no acute distress, well developed, alert and awake Orientation/consciousness: patient oriented x3 Limitations: wheelchair HEENT Head: Yes normal to inspection, Yes normocephalic and Yes atraumatic Ears: hearing grossly normal bilaterally Eyes General: appearance normal, both eyes and all related structures Neck Neck: Yes normal visual inspection and Yes trachea midline Chest Chest palpation & inspection: normal inspection of the chest Resp Effort & Inspection: normal respiratory effort and able to speak in complete sentences Cardio Rate: regular rate GI Inspection: Yes normal to inspection General: Yes no CVA tenderness Back/Spine/Pelvis Back: no CVA tenderness Skin General skin exam: no rashes or lesions noted Neuro General: patient oriented x3 Extrem General: Yes normal to inspection Psych Appearance: grossly normal and well kempt Mental Status: mental status grossly normal Speech and movement: Normal speech and movement present and Clear speech present Affect: normal affect Attitude: cooperative Thought process: Normal thought process present Thought content: Normal thought content present Insight: Fair insight present (Psych) Judgement: Fair judgement present (Psych) Office Procedures Post Void Residual Post Residual Void Post Void Residual (PVR): 54 [id number] Void Residual by ultrasound Assessment & Plan Assessment & Plan (1) Urinary incontinence: Code(s): R32 - Unspecified urinary incontinence (2) Overactive bladder: Code(s): N32.81 - Overactive bladder Plan Unable to obtain urine for urinalysis; however PVR 54 mL. Patient currently denies any bothersome urinary issues or concerns. She reports be happy with current voiding parameters on 25 mg of Myrbetriq daily; will continue; refill provided. Discussed, educated, and stressed the importance of continuing with timed/scheduled voiding given decreased mobility. Discussed, educated, and stressed the importance of continuing to drink water daily. Follow-up in 1 year with PVR; or sooner with any issues, concerns, and or questions. Orders: Orders AMB Post Void Residual by ultrasound Today R32 - Unspecified urinary incontinence Medications: Refilled mirabegron ER (Myrbetriq) 25 mg PO DAILY 90 days 90 tabs 3RF N30.10 - Interstitial cystitis (chronic) without hematuria, N32.81 - Overactive bladder, R35.1 - Nocturia, R39.15 - Urgency of urination Patient Instructions: The patient had an opportunity to ask questions regarding the treatment plan. All questions were answered. Physical exam, labs, and imaging were discussed and reviewed in detail. As well as risks, benefits, and discussion of treatment choices. No major barriers to understanding were identified. The patient expressed understanding and agreement with the above treatment plan. The patient was made aware they should contact our office by phone for worsening of their current condition, the appearance of new symptoms, or with any questions or concerns. Compliance is encouraged with any medications and follow up testing that is ordered. It is a privilege to be allowed the opportunity to p articipate in? your urological care.? Again, if you have any questions or concerns If you have any questions or concerns please do not hesitate to contact me. The office is [phone]. This note is constructed using voice recognition software. While every effort has been made to ensure accuracy wind energy engineer errors may have been included. Yours sincerely, EULA Lyons Coding Level of Care Code Est Pt Level 3 (62521) Diagnoses Urinary incontinence R32 Overactive bladder N32.81 CPT Codes Post Residual Void - PVR CPT Code: 85736-Tnwt Void Residual by ultrasound ([id number])
== END 2023-09-12 09:52 | disposition home or self-care (01) ==
PROVIDERS: PCP Nurse Practitioner Family; Visit Provider Nurse Practitioner Family
DX: R32 Unspecified urinary incontinence (principal); N32.81 Overactive bladder
CPT/HCPCS: 99213

== ENCOUNTER → 2023-09-12 09:10 | Outpatient (BNVA) | payer OTHER, SELFPAY | PROVIDERS: PCP Nurse Practitioner Family; Visit Provider Nurse Practitioner Family | DX: R32 Unspecified urinary incontinence (principal); N32.81 Overactive bladder | CPT/HCPCS: 51798; 99212 ==

== ENCOUNTER 2023-09-26 08:11 | Outpatient (REF) | payer OTHER, SELFPAY ==
[2023-09-26 08:42] LABS: Hematocrit 40.1 % (37.0-47.0); Hemoglobin 13.1 g/dl (12.0-16.0); Mean Corpuscular HGB Conc 32.7 g/dl (31.0-35.0); Mean Corpuscular Hemoglobin 28.9 pg (27.0-33.0); Mean Corpuscular Volume 88.3 fL (80.0-98.0); Platelet Count 243 X10*3/uL (160-400); Red Blood Count 4.54 X10*6/uL (4.20-5.50)
[2023-09-26 09:17] LABS: Alanine Aminotransferase 15 U/L (0-31); Albumin Level 3.9 g/dL (3.5-5.0); Alkaline Phosphatase 68 U/L (39-117); Anion Gap 16 (12-20); Aspartate Amino Transferase 13 U/L (5-31); Bilirubin Direct 0.2 mg/dL (0.0-0.5); Bilirubin Total 0.4 mg/dL (0.0-1.0); Blood Urea Nitrogen 19 mg/dL (9-16); Calcium 9.2 mg/dL (8.4-10.2); Carbon Dioxide 25 mmol/L (22-29); Chloride 103 mmol/L (96-108); Cholesterol 148 mg/dL (<200); Estimated Glomerular Filt Rate > 60; Glucose Random 100 mg/dL (60-115); HDL Cholesterol 35 mg/dL (>40); LDL Cholesterol Calculated 76 mg/dL (<100); Potassium 3.8 mmol/L (3.3-5.1); Sodium 140 mmol/L (135-145); Triglycerides 187 mg/dL (<150)
== END 2023-09-26 08:12 | disposition home or self-care (01) ==
LOC: HO.LAB 08:11
PROVIDERS: PCP Internal Medicine; Visit Provider Internal Medicine
DX: N32.81 Overactive bladder (principal); G82.20 Paraplegia, unspecified; I10 Essential (primary) hypertension
CPT/HCPCS: 36415; 80048; 80061; 80076; 84443; 85027

== ENCOUNTER 2023-09-26 10:41 | Outpatient (AMB) | payer OTHER, SELFPAY ==
--- NOTE | 2023-09-26 11:02 | A.OFFPC_ITS ---
Vital Signs 09/26/23 11:04 Height 5 ft 2 in BMI Reason not done Patient refused/unable BP 110/62 Blood Pressure Location Lt brachial Position Sitting Pulse 67 Pulse Source Pulse Oximeter Pulse Oximetry (%) 93 Oxygen Delivery Method Room Air Intake Visit Reasons: establish [facility] Intake Note: Patient is here today for LEONIDAS from [facility].S Coordinator Of Placement Required: Yes Coordinator Of Placement Language: Blacksmith Helper Name: Franko(son) Information Interpreted: non-clinical & clinical Residential Advisor: Present Accompanied by: Son Allergies No Known Allergies Allergy (Verified 09/26/23 13:30) Tobacco use date assessed: 09/26/23 Fall risk assessment: No Falls in past year Last assessed Fall Risk: 09/26/23 Dental Screening Dental Screen Date: 09/26/23 Did you have a dental visit in the last 12 months?: Yes Did you have a dental problem in the last 6 months where you did not have access to dental care?: No Was dental information given to patient?: Patient has dentist [facility]PI [facility] HPI Details 73-year-old female presents to the [facility] to establish her care. Her son is translating. Patient reports she has familial paraplegia and has been wheelchair-bound for the past 5 years. She is unable to do her activities of daily living. She depends on the son for transfer, bath. She is able to feed by herself. Requesting refill on pregabalin. Patient is continent to urine and feaces. Needs assistance to shift to the commode. [facility] Medical History Paraplegia Encounter to establish care History of shingles Cellulitis Asthma Surgical History History of partial hysterectomy Status post right foot surgery Family History Mother Heart failure Father Heart attack Other Mental health disorder Substance use disorder Social History Housing: Apartment Alcohol intake: current Alcohol intake frequency: holidays/special occasions only Patient Tobacco Use Status: Never used Tobacco e-Cigarette/Vaping Use: Never Used Second Hand Smoke Exposure: No service: No Current occupational status: disabled Cognitive needs: Yes (wheelchair) Hearing needs: No Vision needs: Yes Questionnaire PHQ-9 Over the last 2 weeks, how often have you been bothered by any of the following problems? 1. Little interest or pleasure in doing things: not at all 2. Feeling down, depressed, or hopeless: several days 3. Trouble falling or staying asleep, or sleeping too much: not at all 4. Feeling tired or having little energy: not at all 5. Poor appetite or overeating: not at all 6. Feeling bad about yourself - or that you are a failure or have let yourself or your family down: several days 7. Trouble concentrating on things, such as reading the newspaper or watching television: not at all 8. Moving or speaking so slowly that other people could have noticed. Or the opposite - being so fidgety or restless that you have been moving around a lot more than usual: not at all 9. Thoughts that you would be better off or of hurting yourself in some way: not at all Total score: 2 Depression Screening Interpretation: Negative Depression Screening Done: Yes Source: Developed by Drs. Vern Canchola, Anita Peters, Hardik Russo and colleagues, with an educational jeremie from [employer]. Thrive Questionnaire Date Thrive assessed: 09/26/23 I am a: Patient What is your living situation today?: I have a steady place to live Within the past 12 months, did the food you bought not last and you didn't have the money to get more?: Never true Within the past 12 months, did you worry whether your food would run out before you got money to buy more?: Never true Do you have trouble paying for medicines?: No Do you have trouble getting transportation to medical appointments?: No Do you have trouble paying your heating and electricity bill?: No Do you have trouble taking care of your child, family member or friend?: No Do you have trouble with day-to-day activities such as bathing, preparing meals, shopping, managing finances, etc.?: No Are you currently unemployed and looking for a job?: No Are you interested in more education?: No Currently or been in a relationship where the following occur: no concerns reported THRIVE Score: 0 AUDIT C Alcohol Use Questionnaire (AUDIT-C) 1. How often do you have a drink containing alcohol?: Never Total Score: 0 LAMIN-7 AMB Questionnaire LAMIN-7 Date LAMIN - 7 assessed: 09/26/23 Feeling nervous, anxious, or on edge: 0 = Not at all Not being able to stop or control worryin = Not at all Worrying too much about different things: 0 = Not at all Trouble relaxin = Not at all Being so restless that it is hard to sit still: 0 = Not at all Becoming easily annoyed or irritable: 0 = Not at all Feeling afraid as if something awful might happen: 0 = Not at all Total LAMIN-7 score (0-4 normal; 5-9 mild; 10-14 moderate; 15-21 severe): 0 Source: Developed by Drs. Vern Canchola, Anita Peters, Hardik Russo and colleagues, with an educational jeremie from [employer]. Physical exam (Primary Care) Vital Signs: Last Vital Signs Pulse 67 09/26/23 11:04 BP 110/62 09/26/23 11:04 Pulse Ox 93 09/26/23 11:04 Oxygen Delivery Method Room Air 09/26/23 11:04 Care Plan Goal for BP management: Blood pressure is in goal. Continue current medications. Tobacco/Smoking Status: Tobacco use Status Tobacco use date assessed 09/26/23 09/26/23 11:14 Patient Tobacco Use Status Never used Tobacco 09/26/23 11:14 e-Cigarette/Vaping Use Never Used 09/26/23 11:14 PHQ-9: PHQ-9 Score PHQ-9: Total score 2 09/26/23 11:14 Depression Screening Interpretation: Negative Thrive Assessment: Date of Thrive Assessment Date Thrive assessed 09/26/23 09/26/23 11:14 Currently or been in a relationship where the following occur: no concerns reported Const General: cooperative and healthy appearing Nutritional Appearance: well nourished Orientation/consciousness: patient oriented x3 Limitations: no limitations HENMT Head: Yes normal to inspection Eyes General: appearance normal, both eyes and all related structures Neck Neck: Yes normal visual inspection Chest Chest palpation & inspection: normal palpation of entire chest wall Resp Effort & Inspection: normal respiratory effort Neuro General: patient oriented x3 Assessment and Plan Assessment & Plan (1) 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 Patient still has pending EMG and EEG testing to be done. Will await results. Baclofen has been refilled. Medications: Refilled pregabalin 100 mg PO BID 60 caps 0RF M79.604 - Pain in right leg, M79.605 - Pain in left leg Coding Level of Care Code Est Pt Level 4 (14729) Diagnoses Paraplegia G82.20
[2023-09-26 11:04] VITALS: BP 110/62; PULSE 67; O2SAT 93
== END 2023-09-26 11:39 | disposition home or self-care (01) ==
PROVIDERS: PCP Nurse Practitioner Family; Visit Provider Internal Medicine
DX: G82.20 Paraplegia, unspecified (principal)
CPT/HCPCS: 99214

== ENCOUNTER 2023-09-28 09:03 | Outpatient (REF) | payer OTHER, SELFPAY ==
--- NOTE | 2023-09-28 09:06 | EMG_ITS ---
Chief complaint: Spastic paraplegia Since age 34, she started noting weakness on both legs, able to stand or walk for short periods only. She had shingles 6 years ago and at that point, they think weakness had gotten worse. Complaining of both pain and numbness on both legs. She is non ambulatory, 2/5 at most on MMT on BLE. Clonus noted on ankles. Spasticity noted on BLE. No weakness on BUE. No hyperreflexia on BUE. Was able to feel light touch on legs. Condition runs in the family without formal diagnosis. Affected mostly females in the family. Daughter has also started having symptoms of leg weakness. Reason for referral: Evaluate for neuropathy Referred by: Dr. Pearce Procedure done: Bilateral lower extremity NCS/EMG, right upper extremity EMG done for comparison Precautions and/or limitations: Unable to activate most muscles on lower extremities. Omani speaking, seen with seo associate. Son helped transfer the patient and helped with translation as well. The limb temperature was monitored continuously and remained between 32-36 degrees C during the performance of the NCS. Nerve Conduction Studies Anti Sensory Summary Table ?Stim Site NR Onset (ms) Norm Onset (ms) Peak (ms) Norm Peak (ms) O-P Amp (?V) Norm O-P Amp Site1 Site2 Delta-0 (ms) Dist (cm) Shaun (m/s) Norm Shaun (m/s) Left Sural Anti Sensory (Lat Mall) Calf ? 2.8 3.4 <4.0 5.0 >5.0 Calf Lat Mall 2.8 14.0 50 Right Sural Anti Sensory (Lat Mall) Calf ? 2.9 3.4 <4.0 6.2 >5.0 Calf Lat Mall 2.9 14.0 48 Motor Summary Table ?Stim Site NR Onset (ms) Norm Onset (ms) O-P Amp (mV) Norm O-P Amp iAmp (mV) Amp (1st) (%) Site1 Site2 Delta-0 (ms) Dist (cm) Shaun (m/s) Norm Shaun (m/s) Left Peroneal Motor (Ext Dig Brev) Ankle ? 4.2 <4.0 2.8 >2.5 3.3 100.0 Ankle Ext Dig Brev 4.2 0.0 B Fib ? 10.2 2.5 3.0 89.3 B Fib Ankle 6.0 28.0 47 >40 Poplt ? 11.2 2.5 2.9 89.3 Poplt B Fib 1.0 5.0 50 >40 Right Peroneal Motor (Ext Dig Brev) Ankle ? 4.1 <4.0 1.9 >2.5 2.4 100.0 Ankle Ext Dig Brev 4.1 0.0 B Fib ? 10.1 1.7 2.0 89.5 B Fib Ankle 6.0 26.0 43 >40 Poplt ? 10.9 1.9 2.1 100.0 Poplt B Fib 0.8 6.0 75 >40 Left Tibial Motor (Abd De La Torre Brev) Ankle ? 3.8 <5 7.2 >2.5 9.2 100.0 Ankle Abd De La Torre Brev 3.8 0.0 Knee ? 10.6 4.3 5.6 59.7 Knee Ankle 6.8 32.0 47 >40 Right Tibial Motor (Abd De La Torre Brev) Ankle ? 3.4 <5 3.8 >2.5 4.5 100.0 Ankle Abd De La Torre Brev 3.4 0.0 Knee ? 11.4 2.7 3.8 71.1 Knee Ankle 8.0 35.0 44 >40 EMG ?Side Muscle Nerve Root Ins Act Fibs Psw Amp Dur Poly Recrt Int Pat Comment Right AbdHallucis MedPlantar S1-2 unable to do due to clonus Right AntTibialis Dp Br Peron L4-5 Incr 1+ 1+ Nml Nml 0 Nml Complete Right PostTibialis Tibial L5, S1 Incr 1+ 1+ Nml Nml 0 Nml Complete unable to activate Right MedGastroc Tibial S1-2 Incr 2+ 2+ Nml Nml 0 Nml Complete CRDs Right VastusMed Femoral L2-4 Incr 1+ 1+ Nml Nml 0 Nml Complete Left AbdHallucis MedPlantar S1-2 Incr 1+ 1+ Nml Nml 0 Nml Complete unable to activate Left AntTibialis Dp Br Peron L4-5 Incr 1+ 1+ Nml Nml 0 Nml Complete Left PostTibialis Tibial L5, S1 Incr 1+ 1+ Nml Nml 0 Nml Complete Left MedGastroc Tibial S1-2 Incr 1+ 1+ Nml Nml 0 Nml Complete Left VastusMed Femoral L2-4 Incr 1+ 1+ Nml Nml 0 Nml Complete Right 1stDorInt Ulnar C8-T1 Nml Nml Nml Nml Nml 0 Nml Complete Right Deltoid Axillary C5-6 Nml Nml Nml Nml Nml 0 Nml Complete Paraspinal EMG ?Side Muscle Nerve Root Ins Act Fibs Psw Comment Right Lumbar Upper Rami Nml Nml Nml Right Lumbar Mid Rami Nml Nml Nml Right Lumbar Lower Rami Nml Nml Nml Left Lumbar Upper Rami Nml Nml Nml Left Lumbar Mid Rami Nml Nml Nml Left Lumbar Lower Rami Nml Nml Nml FINDINGS: Right peroneal nerve showed mildly prolonged distal latency, small amplitudes and normal conduction velocity. Left peroneal nerve showed mildly prolonged distal latency, normal amplitudes and normal conduction velocity. Bilateral tibial and sural nerves within normal. Concentric needle EMG was performed in selected muscles of the bilateral lower extremities, lumbar paraspinals and right upper extremity. Study revealed signs of electric abnormalities as shown in the table below. Almost all muscles tested on lower extremities showed increased insertional activity, PSWs and fibrillations. No denervation seen on lumbar paraspinals. No denervation seen on right upper extremity. IMPRESSION: 1. This is an abnormal study. 2. 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 Consider genetic testing of patient and daughter. Thank you for your kind referral. Vicky Martin MD, BENJI Board Certified, [place] [employer] and Rehabilitation (ABPMR) Board Certified, [place] Board of Electrodiagnostic Medicine (ABEM) CODIN 76566 x 2 27111 MTDD
== END 2023-09-28 09:04 | disposition home or self-care (01) ==
LOC: HO.NEURO 09:03
PROVIDERS: PCP Nurse Practitioner Family; Visit Provider Psychiatry & Neurology Neurology
DX: R20.0 Anesthesia of skin (principal); R20.2 Paresthesia of skin; G82.20 Paraplegia, unspecified
CPT/HCPCS: 95885; 95886; 95909

== ENCOUNTER → 2023-09-28 09:06 | Outpatient (BNV) | payer OTHER, SELFPAY | PROVIDERS: PCP Nurse Practitioner Family; Visit Provider Physical Medicine & Rehabilitation | DX: M79.604 Pain in right leg (principal); M79.605 Pain in left leg; R20.2 Paresthesia of skin; M79.601 Pain in right arm | CPT/HCPCS: 95885; 95886; 95909 ==

== ENCOUNTER 2023-11-16 07:17 | Outpatient (REF) | payer OTHER, SELFPAY ==
--- NOTE | ~2023-11-16 | XR_ITS ---
EXAMINATION: XR BILATERAL KNEES CLINICAL INFORMATION: Pain in bilateral knees. TECHNIQUE: 2 views of each knee. COMPARISON: 01/19/2022. FINDINGS: RIGHT KNEE: Diffuse demineralization. Evaluation on lateral view is limited due to overlying folds of cloth and repeat view at no charge to patient is recommended for better visualization. If this view is provided, an addendum will be dictated. Marked narrowing of the lateral compartment. Prominent lateral marginal and posterior patella osteophytes. Mild narrowing of the medial compartment. LEFT KNEE: Moderate joint effusion. Diffuse demineralization. Marked narrowing of the lateral compartment. Prominent lateral marginal and posterior patella osteophytes. Mild narrowing of the medial compartment. XR/XR knee RT 2V IMPRESSION: 1. Marked degenerative changes bilateral knees. 2. Evaluation on lateral view is limited due to overlying folds of garment and repeat view at no charge to patient is recommended for better visualization. If this view is provided, an addendum will be dictated.
--- NOTE | ~2023-11-16 | XR_ITS ---
EXAMINATION: XR BILATERAL KNEES CLINICAL INFORMATION: Pain in bilateral knees. TECHNIQUE: 2 views of each knee. COMPARISON: 01/19/2022. FINDINGS: RIGHT KNEE: Diffuse demineralization. Evaluation on lateral view is limited due to overlying folds of cloth and repeat view at no charge to patient is recommended for better visualization. If this view is provided, an addendum will be dictated. Marked narrowing of the lateral compartment. Prominent lateral marginal and posterior patella osteophytes. Mild narrowing of the medial compartment. LEFT KNEE: Moderate joint effusion. Diffuse demineralization. Marked narrowing of the lateral compartment. Prominent lateral marginal and posterior patella osteophytes. Mild narrowing of the medial compartment. XR/XR knee LT 2V IMPRESSION: 1. Marked degenerative changes bilateral knees. 2. Evaluation on lateral view is limited due to overlying folds of garment and repeat view at no charge to patient is recommended for better visualization. If this view is provided, an addendum will be dictated.
== END 2023-11-16 07:18 | disposition home or self-care (01) ==
LOC: HO.HOSX 07:17
PROVIDERS: Visit Provider Physician Assistant
DX: M17.0 Bilateral primary osteoarthritis of knee (principal)
CPT/HCPCS: 20610; 73560; 99212; J1010

== ENCOUNTER 2023-11-16 09:06 | Outpatient (AMB) | payer OTHER, SELFPAY ==
--- NOTE | 2023-11-16 09:43 | MHC.OFFVIS ---
Intake Visit Reasons: OV - B/L knee OA, last inj 08/14/23 Intake Note: Rita is a 73 year old female who presents today in a wheelchair for a follow up of bilateral knee OA, last injections 08/14/23. Patient reports her last injection gave her about 3 months of relief and would like to repeat. Allergies No Known Allergies Allergy (Verified 11/16/23 09:45) HPI HPI OV - B/L knee OA, last inj 08/14/23: Details: 73-year-old female, who is Chinese speaking, presents in the office today for a follow-up of bilateral knee osteoarthritis. I last saw the patient in the office on 08/14/2023 when she was given cortisone injections in the bilateral knees. While in the office today the patient reports her last cortisone injections in the bilateral knees gave her about three months of relief. She would like to repeat bilateral knee injections in the office today. Patient presents in a wheelchair. [facility] Medical History Paraplegia Encounter to establish care History of shingles Cellulitis Asthma Surgical History History of partial hysterectomy Status post right foot surgery Family History Mother Heart failure Father Heart attack Other Mental health disorder Substance use disorder Social History Housing: Apartment Alcohol intake: current Alcohol intake frequency: holidays/special occasions only Patient Tobacco Use Status: Never used Tobacco e-Cigarette/Vaping Use: Never Used Second Hand Smoke Exposure: No service: No Current occupational status: disabled Cognitive needs: Yes (wheelchair) Hearing needs: No Vision needs: Yes Review of Systems Const All systems reviewed & are unremarkable except as noted in HPI and below Physical Exam Const General: cooperative, healthy appearing and no acute distress Resp Effort & Inspection: normal respiratory effort and able to speak in complete sentences Cardio Rate: regular rate Peripheral pulses: Peripheral pulses 2+ throughout GI Palpation (GI): Soft to palpation Skin Lesions: no lesions Rashes: no rashes Extrem Other: Bilateral knees: Normal to inspection. No ecchymosis, erythema, or joint effusion. Extension to about 40 degrees. Flexion to 80 degrees. Global tenderness to palpation. Unable to assess Radha's or anterior drawer. NVI. Office Procedures Joint Injection/Drain Joint Injection/Drain Primary Site: right knee Secondary Site: left knee Prep: site was prepped using aseptic technique, ethochloride spray was applied and injection warnings given Injected: 80 mg of, DepoMedrol, with 8 mL of (2% plain lido ) and in the joint Approach Used: anterolateral Procedure: The patient tolerated the procedure well, but had some pain with the injection and there was some relief with the local anesthesia Coding 22085 - Large joint Procedure code (CPT) selection complete Assessment & Plan Assessment & Plan (1) Osteoarthritis of knees, bilateral: Code(s): M17.0 - Bilateral primary osteoarthritis of knee Category: Medical Qualifiers: Osteoarthritis type: unspecified Qualified Code(s): M17.0 - Bilateral primary osteoarthritis of knee Plan Ms. Fabby Glez is a 73-year-old female, who is Chinese speaking, presents in the office today for a follow-up of bilateral knee osteoarthritis. I last saw the patient in the office on 08/14/2023 when she was given cortisone injections in the bilateral knees. While in the office today the patient reports her last cortisone injections in the bilateral knees gave her about three months of relief. She would like to repeat bilateral knee injections in the office today. Patient presents in a wheelchair. The patient was offered a cortisone injection in the bilateral knees with 80 mg of DepoMedrol. The patient was explained the risk, benefits, and alternatives to receiving this injection. After receiving consent for the injection, the patient had the procedure done while in the office today. The patient tolerated the procedure well with no complications. Follow-up will be PRN, or sooner if needed. X-rays of the bilateral knees which were obtained while in the office today and were reviewed by me, Shey Gongora PA-C, revealed bilateral knee osteoarthritis. Orders: Orders XR knee RT 3V Today M25.569 - Pain in unspecified knee XR knee LT 2V Today M25.569 - Pain in unspecified knee Patient Instructions: Scribed by Felicitas Sultana quality engineer medical device, for Shey Gongora PA-C on 11/16/2023 at 9:10 am, EST. Coding Level of Care Code Est Pt Level 3 (05706) Diagnoses Osteoarthritis of both knees, unspecified osteoarthritis type M17.0 Osteoarthritis type: unspecified CPT Codes Coding - 71085 Large joint: 87867 - Large joint ([id number])
== END 2023-11-16 09:56 | disposition home or self-care (01) ==
PROVIDERS: PCP Nurse Practitioner Family; Visit Provider Physician Assistant
DX: M17.0 Bilateral primary osteoarthritis of knee (principal)
CPT/HCPCS: 20610; 99213

== ENCOUNTER 2023-12-05 10:41 | Outpatient (AMB) | payer OTHER, SELFPAY ==
--- NOTE | 2023-12-05 11:13 | MHC.PC.OV ---
Vital Signs 12/05/23 11:15 Height 5 ft 2 in BMI Reason not done Patient refused/unable BP 100/62 Blood Pressure Location Lt brachial Position Sitting Pulse 68 Pulse Source Pulse Oximeter Pulse Oximetry (%) 95 Oxygen Delivery Method Room Air Intake Visit Reasons: Cataract surgery 12/10 (R), 12/30 (l) Intake Note: Patient is here for a Pre-op for Cataract surgery scheduled with [facility] (F:[phone]) on 12/10 (Right eye), 12/31/23 (left eye). Complaint of burning sensation when urinating, also has a rash in libby area. Engraver Signature Required: Yes Engraver Signature Language: Pashto Technical Planner: Present Accompanied by: Son Allergies No Known Allergies Allergy (Verified 12/05/23 11:15) Tobacco use date assessed: 12/05/23 Fall risk assessment: No Falls in past year Last assessed Fall Risk: 12/05/23 Dental Screening Dental Screen Date: 09/26/23 HPI Cataract surgery 12/10 (R), 12/30 (l) HPI Details 73-year-old female presents to the office for a preop clearance. No official paperwork available. According to the attendant with the patient, patient is scheduled for bilateral cataracts at [facility]. In addition, patient is complaining of symptoms of increased frequency of urination and burning. No fevers or chills. [facility] Medical History Paraplegia Encounter to establish care History of shingles Cellulitis Asthma Surgical History History of partial hysterectomy Status post right foot surgery Family History Mother Heart failure Father Heart attack Other Mental health disorder Substance use disorder Social History Housing: Apartment Alcohol intake: current Alcohol intake frequency: holidays/special occasions only Patient Tobacco Use Status: Never used Tobacco e-Cigarette/Vaping Use: Never Used Second Hand Smoke Exposure: No service: No Current occupational status: disabled Cognitive needs: Yes (wheelchair) Hearing needs: No Vision needs: Yes Questionnaire Thrive Questionnaire Date Thrive assessed: 09/26/23 LAMIN-7 AMB Questionnaire LAMIN-7 Date LAMIN - 7 assessed: 09/26/23 Source: Developed by Drs. Vern Canchola, Anita Peters, Hardik Russo and colleagues, with an educational jeremie from [employer]. Physical exam (Primary Care) Vital Signs: Last Vital Signs Pulse 68 12/05/23 11:15 BP 100/62 12/05/23 11:15 Pulse Ox 95 12/05/23 11:15 Oxygen Delivery Method Room Air 12/05/23 11:15 Tobacco/Smoking Status: Tobacco use Status Tobacco use date assessed 12/05/23 12/05/23 11:23 Patient Tobacco Use Status Never used Tobacco 12/05/23 11:23 e-Cigarette/Vaping Use Never Used 12/05/23 11:23 Thrive Assessment: Date of Thrive Assessment Date Thrive assessed 09/26/23 12/05/23 11:23 Const General: cooperative and healthy appearing Nutritional Appearance: well nourished Orientation/consciousness: patient oriented x3 Limitations: no limitations HENMT Head: Yes normal to inspection Eyes General: appearance normal, both eyes and all related structures Neck Neck: Yes normal visual inspection Chest Chest palpation & inspection: normal palpation of entire chest wall Resp Effort & Inspection: normal respiratory effort Neuro General: patient oriented x3 Results AMB Urinalysis, Automated UA Leukoctes 3 Brandan/uL Last Edit by MARIE Hickey on 12/05/23 11:41 UA Nitrite Negative Last Edit by MARIE Hickey on 12/05/23 11:41 UA Urobilinogen 0 mg/dL Last Edit by MARIE Hickey on 12/05/23 11:41 UA Protein 1 mg/dL Last Edit by MARIE Hickey on 12/05/23 11:41 UA pH 6.0 Last Edit by MARIE Hickey on 12/05/23 11:41 UA Blood 1 Ryan/uL Last Edit by MARIE Hickey on 12/05/23 11:41 UA Specific [place] 1.020 Last Edit by MARIE Hickey on 12/05/23 11:41 UA Ketone Negative Last Edit by MARIE Hickey on 12/05/23 11:41 UA Bilirubin 0 mg/dL Last Edit by MARIE Hickey on 12/05/23 11:41 UA Glucose 0 mg/dL Last Edit by MARIE Hickey on 12/05/23 11:41 Assessment and Plan Assessment & Plan (1) Preoperative clearance: Code(s): Z01.818 - Encounter for other preprocedural examination Plan: If the procedure is to be done under local anesthesia and the procedure is cataract extraction, patient is cleared for surgery. Continue medications up to and after the surgery as tolerated. (2) Urinary tract infection: Code(s): N39.0 - Urinary tract infection, site not specified Plan: Antibiotics called in. Orders: Orders AMB Urinalysis Automated Today Z13.9 - Encounter for screening, unspecified Coding Level of Care Code Est Pt Level 4 (03497) Diagnoses Preoperative clearance Z01.818 Urinary tract infection N39.0
[2023-12-05 11:15] VITALS: BP 100/62; PULSE 68; O2SAT 95
== END 2023-12-05 13:40 | disposition home or self-care (01) ==
PROVIDERS: PCP Internal Medicine; Visit Provider Internal Medicine
DX: N39.0 Urinary tract infection, site not specified (principal); Z01.818 Encounter for other preprocedural examination; R35.0 Frequency of micturition
CPT/HCPCS: 81003; 99214

== ENCOUNTER 2023-12-17 09:47 | Emergency (ER) | payer OTHER, SELFPAY ==
[2023-12-17 09:51] VITALS: BP 102/57; PULSE 81; RESP 16; TEMP 36.5; O2SAT 95; BMI 33.8
[2023-12-17 10:00] VITALS: BP 141/65; PULSE 70; RESP 16; TEMP 36.5; O2SAT 97
--- NOTE | 2023-12-17 10:02 | ED_ITS ---
HPI - General Adult General Chief complaint: General Medical Stated complaint: Vaginal discomfort, hemorrhoids Time Seen by Provider: 12/17/23 10:01 Source: patient and family Mode of arrival: ambulatory Limitations: no limitations History of Present Illness ED Provider: Amy SOMMER narrative: Patient is a 73-year-old wheelchair-bound female with history of paraplegia, overactive bladder, obesity, HTN, GERD, depression and anxiety presenting to the emergency department with complaint of hemorrhoids as well as vaginal itching. Patient's son who is also her CATSHOVEL DRIVER reports that she was recently treated for UTI. He states that since that time she has had a vaginal rash with itching and burning and recently developed painful hemorrhoids. He states that his sister also cares for the patient and she noted the rash as well as the hemorrhoids while providing libby care. Using Tucks pads with some relief. Patient denies any abdominal pain, back pain, fevers. MD complaint: vaginal rash, rectal pain Onset (ago): day(s) Location: genitals Quality: burning Related Data Home Medications ?Medication ?Instructions ?Recorded ?Confirmed hydrocortisone 1 % topical ointment 1 appl topical BID 02/09/22 08/20/23 Previous Rx's ?Medication ?Instructions ?Recorded polyethylene glycol 3350 17 17 g PO DAILY PRN constipation 02/09/22 gram/dose oral powder (Miralax) #238 grams peg 3350-electrolytes 236 240 ml PO Q10M 1 day #4,000 mL 04/11/22 gram-22.74 gram-6.74 gram-5.86 gram solution (Golytely) miscellaneous medical supply 1 ea miscellaneous .4xday #120 ea 02/13/23 benzonatate 200 mg capsule 200 mg PO TID PRN cough #30 caps 04/13/23 miscellaneous medical supply 1 ea miscellaneous DAILY #1 ea 05/15/23 albuterol sulfate 2.5 mg/3 mL 2.5 mg (3 mL) inhalation Q6H PRN 06/08/23 (0.083 %) solution for nebulization shortness of breath or wheezing #75 mL nebulizers #1 ea 06/08/23 fluticasone propionate 50 1 spray intranasal DAILY allergy 08/15/23 mcg/actuation nasal symptoms #100 mL spray,suspension (Flonase Allergy Relief) mirabegron 25 mg tablet,extended 25 mg PO DAILY 90 days #90 tabs 09/12/23 release 24 hr (Myrbetriq) cholecalciferol (vitamin D3) 50 50 mcg PO DAILY #30 caps 10/15/23 mcg (2,000 unit) capsule loratadine 10 mg tablet 10 mg PO DAILY #90 tabs 10/15/23 sertraline 25 mg tablet 25 mg PO DAILY #90 tabs 11/05/23 naproxen 500 mg tablet 500 mg PO BEDTIME #30 tabs 11/16/23 albuterol sulfate 90 mcg/actuation 2 puff inhalation Q4-6H PRN 11/18/23 aerosol inhaler shortness of breath or wheezing #8.5 grams fluticasone propionate 220 2 puff inhalation BID #12 grams 11/18/23 mcg/actuation HFA aerosol inhaler furosemide 40 mg tablet 40 mg PO DAILY #90 tabs 11/18/23 lisinopril 30 mg tablet 30 mg PO DAILY #90 tabs 11/18/23 simvastatin 40 mg tablet 40 mg PO BEDTIME #90 tabs 11/18/23 pregabalin 100 mg capsule 100 mg PO BID #60 caps 11/30/23 sulfamethoxazole 800 1 tab PO BID 5 days #10 tabs 12/05/23 mg-trimethoprim 160 mg tablet (Bactrim DS) baclofen 10 mg tablet 10 mg PO QID #120 tabs 12/13/23 adult pullups #210 ea 12/14/23 miscellaneous medical supply 1 ea miscellaneous .4xday #200 ea 12/14/23 miscellaneous medical supply 1 ea miscellaneous DAILY #30 ea 12/14/23 lidocaine HCl 2 % mucosal solution 1 appl mucous membrane Q4H #100 mL 12/17/23 (Lidocaine Viscous) pramoxine 1 % topical foam 1 appl PA TID #15 grams 12/17/23 (Proctofoam) Allergies Allergy/AdvReac Type Severity Reaction Status Date / Time sulfamethoxazole Allergy Rash Verified 12/17/23 09:54 [From Bactrim] trimethoprim [From Bactrim] Allergy Rash Verified 12/17/23 09:54 Review of Systems Review of Systems: As per HPI. Yes all other systems are reviewed and are negative Constitutional: Constitutional: Reports as per HPI [facility] Past Medical History Medical History Paraplegia Encounter to establish care History of shingles Cellulitis Asthma Surgical History History of partial hysterectomy Status post right foot surgery Family History Family History Mother Heart failure Father Heart attack Other Mental health disorder Substance use disorder Social History Social History Housing: Apartment Alcohol intake: current Alcohol intake frequency: holidays/special occasions only Patient Tobacco Use Status: Never used Tobacco e-Cigarette/Vaping Use: Never Used Second Hand Smoke Exposure: No Advance Directives: No Advance Directives Information Provided: No Do you have a plan to hurt others: No Plan service: No Current occupational status: disabled Cognitive needs: Yes (wheelchair) Hearing needs: No Vision needs: Yes Physical Exam ED Vital Signs: Vital Signs - 24 hr 12/17/23 09:51 12/17/23 10:00 Temperature 97.7 F 97.7 F Pulse Rate 81 70 Respiratory Rate 16 16 Blood Pressure 102/57 L 141/65 H Pulse Oximetry 95 97 Oxygen Delivery Method Room Air Room Air BMI result Body Mass Index 33.8 Vital signs have been reviewed and appear to be correct. Blood pressure normal. Heart rate normal. Respiratory rate normal. Temperature normal. Oxygen saturation normal. Const General: cooperative and no acute distress Orientation/consciousness: oriented to person, oriented to place, oriented to time and patient oriented x3 Limitations: no limitations HENMT Head: Yes normocephalic and Yes atraumatic Ears: external ears normal General nose exam: Normal external nose present Face and sinus: Yes face symmetric Mouth: oropharynx normal and moist mucous membranes Throat: Yes uvula midline Eyes Pupils: Equal, round and reactive pupils present Neck Neck: Yes normal visual inspection and Yes supple Resp Effort & Inspection: normal respiratory effort and able to speak in complete sentences Auscultation: clear to auscultation bilaterally Cardio Rate: regular rate Rhythm: regular rhythm Heart sounds: S1 normal heart sound present and S2 normal heart sound present GI Other: Rectal exam chaperoned by MONISHA Ji Palpation (GI): Soft to palpation and nontender Auscultation: normoactive bowel sounds Rectal Exam - Female: External hemorrhoid(s) present (no evidence of thrombus) Other: Pelvic exam chaperoned by MONISHA Ji General: Yes no CVA tenderness External Female Exam: normal external appearance and normal appearance of the urethra Speculum Exam - Vagina: normal palpation, normal vaginal discharge and erythematous Speculum Exam - Cervix: normal appearance of the cervix and normal palpation Bimanual exam- vagina & uterus: normal palpation and normal palpation Back/Spine/Pelvis Back: no CVA tenderness Skin General skin exam: elasticity normal and turgor normal Neuro General: oriented to person, oriented to place, oriented to time and patient alphonse ented x3 Cranial nerves: Yes Equal, round and reactive pupils present Cognition (Neuro): normal cognition Extrem General: Yes no pedal edema and Yes no calf tenderness Psych Mental Status: mental status grossly normal Affect: normal affect Thought process: Normal thought process present Medical Decision Making Medical Decision Making [facility] Narrative: Patient is a 73-year-old wheelchair-bound female with history of paraplegia, overactive bladder, obesity, HTN, GERD, depression and anxiety presenting to the emergency department with complaint of hemorrhoids as well as vaginal itching. On exam patient is awake, A+Ox3, VS WNL, afebrile, normal neurological exam without focal deficits, physical exam findings as above. Given reported symptoms and physical exam findings, initial differential includes vulvovaginal candidiasis, BV, UTI, external hemorrhoids, internal hemorrhoids. Physical exam notable for non-thrombosed external hemorrhoids. No vaginal discharge noted. Urinalysis is without evidence of infection. Vaginal swab negative. Will treat for hemorrhoid discomfort. Advised patient and family that she should follow up with PCP. Return precautions discussed at bedside. Patient and son verbalized understanding of and agreement with plan. Differential Diagnosis Differential Diagnoses: The differential diagnosis associated with the presentation includes As per MDM. Lab Data [facility] Lab Attestation statement: I reviewed the patient's lab results. As per [facility]. Labs: Lab Results 12/17/23 Range/Units 11:36 Urine Color Yellow Urine Appearance Clear Urine pH 5.5 (5.0-9.0) Ur Specific [place] 1.010 (1.005-1.025) Urine Protein Negative (Neg-Trace) mg/dL Urine Glucose (UA) Negative (Negative) mg/dL Urine Ketones Negative (Negative) mg/dL Urine Blood Negative (Negative) Urine Nitrite Negative (Negative) Ur Leukocyte Esterase Negative (Negative) T. vaginalis (PCR) NOT DETECTED (Not Detect) Bact Vaginosis (PCR) NEGATIVE (Negative) C. krusei/glabrata (PCR) NOT DETECTED (Not Detect) Madyson group (PCR) NOT DETECTED (Not Detect) Independent Historian Clinical information obtained from an independent historian. History obtained from or confirmed by: Other (son/CATSHOVEL DRIVER) External Record Review External record reviewed: Inpatient record, Office record and Outpatient record Prescription Management I considered prescription management with: Pain Medication Discharge Plan Discharge Clinical Impression: External hemorrhoids Patient Disposition: Home, Self-Care Instructions: Hemorrhoids (DC) Additional Instructions: You were seen in the emergency department today for vaginal discomfort and rectal pain. Your urinalysis did not show evidence of infection. Your pelvic exam did not show evidence of a yeast infection. You are being treated with me dications for hemorrhoids. Please use these medications as prescribed. We recommend that you follow-up with your primary care provider. Return to the emergency department if you develop uncontrolled bleeding, dizziness or lightheadedness, weakness, worsening pain or other concerning symptoms. Prescriptions: New pramoxine [Proctofoam] 1 % foam 1 appl PA TID Qty: 15 0RF lidocaine HCl [Lidocaine Viscous] 2 % solution 1 appl mucous membrane Q4H Qty: 100 0RF Rx Instructions: 2.5mL applied rectally Q4H as needed for rectal pain No Action albuterol sulfate 2.5 mg /3 mL (0.083 %) solution for nebulization 2.5 mg inhalation Q6H PRN (Reason: shortness of breath or wheezing) Qty: 75 0RF (DME) nebulizers Misc See Rx Instructions .Route Qty: 1 0RF Rx Instructions: As directed fluticasone propionate [Flonase Allergy Relief] 50 mcg/actuation spray,suspension 1 spray intranasal DAILY Qty: 100 0RF Rx Instructions: administer into each nostril loratadine 10 mg tablet 10 mg PO DAILY Qty: 90 0RF cholecalciferol (vitamin D3) 50 mcg (2,000 unit) capsule 50 mcg PO DAILY Qty: 30 3RF naproxen 500 mg tablet 500 mg PO BEDTIME Qty: 30 0RF furosemide 40 mg tablet 40 mg PO DAILY Qty: 90 1RF simvastatin 40 mg tablet 40 mg PO BEDTIME Qty: 90 1RF fluticasone propionate 220 mcg/actuation HFA aerosol inhaler 2 puff inhalation BID Qty: 12 2RF albuterol sulfate 90 mcg/actuation HFA aerosol inhaler 2 puff inhalation Q4-6H PRN (Reason: shortness of breath or wheezing) Qty: 8.5 1RF lisinopril 30 mg tablet 30 mg PO DAILY Qty: 90 1RF pregabalin 100 mg capsule 100 mg PO BID Qty: 60 0RF baclofen 10 mg tablet 10 mg PO QID Qty: 120 0RF (DME) adult pullups medium See Rx Instructions .Route .MEDSUPPLY Qty: 210 11RF Rx Instructions: As directed miscellaneous medical supply Misc 1 ea miscellaneous DAILY Qty: 30 11RF Rx Instructions: disposable bed pads miscellaneous medical supply [facility] [place] 1 ea miscellaneous .4xday Qty: 200 11RF Rx Instructions: Disposable body wash wipes benzonatate 200 mg capsule 200 mg PO TID PRN (Reason: cough) Qty: 30 0RF hydrocortisone 1 % ointment 1 appl topical BID polyethylene glycol 3350 [Miralax] 17 gram/dose powder 17 g PO DAILY PRN (Reason: constipation) Qty: 238 0RF sulfamethoxazole-trimethoprim [Bactrim DS] 800-160 mg tablet 1 tab PO BID 5 Days Qty: 10 0RF miscellaneous medical supply [facility] [place] 1 ea miscellaneous .4xday Qty: 120 11RF Rx Instructions: pull-ups, adult size large miscellaneous medical supply Misc 1 ea miscellaneous DAILY Qty: 1 0RF Rx Instructions: nebulizer machine with tubing sertraline 25 mg tablet 25 mg PO DAILY Qty: 90 1RF peg 3350-electrolytes [Golytely] 236-22.74-6.74 -5.86 gram recon soln 240 ml PO Q10M 1 Days Qty: 4000 0RF Rx Instructions: until fecal effluent is clear; do not exceed a total volume of 2,000 mL Myrbetriq 25 mg tablet extended release 24 hr 25 mg PO DAILY 90 Days Qty: 90 3RF Referrals: [facility] [place] General Surgeons [Provider Group] Print Language: Ugandan
[2023-12-17 11:48] LABS: Appearance Urine Clear; Color Urine Yellow; Glucose Urine UA Negative (Negative); Leukocyte Esterase Urine Negative (Negative); Nitrite Urine Negative (Negative); PH 5.5 (5.0-9.0); Urine Blood Negative (Negative); Urine Ketones Negative (Negative); Urine Protein Negative (Neg-Trace)
[2023-12-17 13:30] LABS: Bacterial Vaginosis PCR NEGATIVE (Negative); Candida Group PCR NOT DETECTED (Not Detect); Candida glab krusei PCR NOT DETECTED (Not Detect); Trichomonas vaginalis PCR NOT DETECTED (Not Detect)
[2023-12-17 14:48] VITALS: BP 141/65; PULSE 70; RESP 16; TEMP 36.5; O2SAT 97
== END 2023-12-17 14:49 | disposition home or self-care (01) ==
PROVIDERS: Registered Nurse Emergency; Emergency Provider Emergency Medicine; PCP Physician Assistant
DX: R10.2 Pelvic and perineal pain (principal); K64.4 Residual hemorrhoidal skin tags; N89.8 Other specified noninflammatory disorders of vagina; R30.0 Dysuria
CPT/HCPCS: 0352U; 81003; 99283

== ENCOUNTER 2023-12-30 18:56 | Emergency (ER) | payer OTHER, SELFPAY ==
[2023-12-30 19:17] VITALS: BP 135/76; PULSE 90; RESP 18; TEMP 36.7; O2SAT 95; BMI 33.8
--- NOTE | 2023-12-30 19:21 | ED_ITS ---
HPI - Female Genitourinary General Chief complaint: Urogenital-Female Stated complaint: pelvic pain Time Seen by Provider: 12/30/23 22:32 Source: patient Mode of arrival: ambulatory Limitations: no limitations History of Present Illness ED Provider: niki SOMMER Narrative: Patient is 73 years old with history of paraplegia over reactive bladder obesity, hypertension, depression anxiety comes here for pelvic pain few days patient was seen here on 12/17/2023 for hemorrhoids and vaginal pain and redness which and pelvic exam was negative comes here for frequency of urine and pelvic discomfort with increased redness of vulvar area patient does not some incontinence but at this time for last few days getting worse no fever no chills no flank pain no nausea vomiting Related Data Home Medications ?Medication ?Instructions ?Recorded ?Confirmed hydrocortisone 1 % topical ointment 1 appl topical BID 02/09/22 08/20/23 Previous Rx's ?Medication ?Instructions ?Recorded polyethylene glycol 3350 17 17 g PO DAILY PRN constipation 02/09/22 gram/dose oral powder (Miralax) #238 grams peg 3350-electrolytes 236 240 ml PO Q10M 1 day #4,000 mL 04/11/22 gram-22.74 gram-6.74 gram-5.86 gram solution (Golytely) benzonatate 200 mg capsule 200 mg PO TID PRN cough #30 caps 04/13/23 miscellaneous medical supply 1 ea miscellaneous DAILY #1 ea 05/15/23 albuterol sulfate 2.5 mg/3 mL 2.5 mg (3 mL) inhalation Q6H PRN 06/08/23 (0.083 %) solution for nebulization shortness of breath or wheezing #75 mL nebulizers #1 ea 06/08/23 fluticasone propionate 50 1 spray intranasal DAILY allergy 08/15/23 mcg/actuation nasal symptoms #100 mL spray,suspension (Flonase Allergy Relief) mirabegron 25 mg tablet,extended 25 mg PO DAILY 90 days #90 tabs 09/12/23 release 24 hr (Myrbetriq) cholecalciferol (vitamin D3) 50 50 mcg PO DAILY #30 caps 10/15/23 mcg (2,000 unit) capsule loratadine 10 mg tablet 10 mg PO DAILY #90 tabs 10/15/23 sertraline 25 mg tablet 25 mg PO DAILY #90 tabs 11/05/23 naproxen 500 mg tablet 500 mg PO BEDTIME #30 tabs 11/16/23 albuterol sulfate 90 mcg/actuation 2 puff inhalation Q4-6H PRN 11/18/23 aerosol inhaler shortness of breath or wheezing #8.5 grams fluticasone propionate 220 2 puff inhalation BID #12 grams 11/18/23 mcg/actuation HFA aerosol inhaler furosemide 40 mg tablet 40 mg PO DAILY #90 tabs 11/18/23 lisinopril 30 mg tablet 30 mg PO DAILY #90 tabs 11/18/23 simvastatin 40 mg tablet 40 mg PO BEDTIME #90 tabs 11/18/23 sulfamethoxazole 800 1 tab PO BID 5 days #10 tabs 12/05/23 mg-trimethoprim 160 mg tablet (Bactrim DS) baclofen 10 mg tablet 10 mg PO QID #120 tabs 12/13/23 adult pullups #210 ea 12/14/23 lidocaine HCl 2 % mucosal solution 1 appl mucous membrane Q4H #100 mL 12/17/23 (Lidocaine Viscous) pramoxine 1 % topical foam 1 appl MS TID #15 grams 12/17/23 (Proctofoam) miscellaneous medical supply 1 ea miscellaneous .4xday #120 ea 12/18/23 miscellaneous medical supply 1 ea miscellaneous .4xday #200 ea 12/18/23 miscellaneous medical supply 1 ea miscellaneous DAILY #30 ea 12/18/23 pregabalin 100 mg capsule 100 mg PO BID #60 caps 12/28/23 cefuroxime axetil 250 mg tablet 250 mg PO BID 7 days #14 tabs 12/30/23 Allergies Allergy/AdvReac Type Severity Reaction Status Date / Time sulfamethoxazole Allergy Rash Verified 12/30/23 19:19 [From Bactrim] trimethoprim [From Bactrim] Allergy Rash Verified 12/30/23 19:19 Review of Systems Review of Systems: Yes all other systems are reviewed and are negative PMFSH Past Medical History Medical History Paraplegia Encounter to establish care History of shingles Cellulitis Asthma Surgical History History of partial hysterectomy Status post right foot surgery Family History Family History Mother Heart failure Father Heart attack Other Mental health disorder Substance use disorder Social History Social History Housing: Apartment Alcohol intake: current Alcohol intake frequency: holidays/special occasions only Patient Tobacco Use Status: Never used Tobacco e-Cigarette/Vaping Use: Never Used Second Hand Smoke Exposure: No Advance Directives: Yes Advance Directives Information Provided: No Advance Directives on File: No Do you have a plan to hurt others: No Plan service: No Current occupational status: disabled Cognitive needs: Yes (wheelchair) Hearing needs: No Vision needs: Yes Physical Exam Vital Signs: Vital Signs: Last Vital Signs Temp 97.2 F 12/30/23 23:10 Pulse 83 12/30/23 23:10 Resp 16 12/30/23 23:10 BP 168/70 H 12/30/23 23:10 Pulse Ox 97 12/30/23 23:10 O2 Del Method Room Air 12/30/23 23:10 BMI result Body Mass Index 33.8 Appearance: Alert. Oriented X3. No acute distress. Eyes: No pallor or icterus ENT: Pharynx normal. Oral Mucosa moist Neck: Normal inspection. Neck supple. CVS: Normal heart rate and rhythm. Pulses normal. Respiratory: No respiratory distress. Equal air entry bilateral, no wheezing/rales/rhonchi Abdomen: Soft and nontender. Bowel sounds are present, no mass palpable, no CVA tenderness Skin: Skin warm and dry. Normal skin color. Normal skin turgor. Extremities: No lower extremity edema. No calf tenderness Neuro: Oriented X 3. Paraplegic Course Course Course Narrative: RME: [employer] by [employer]. 73 yold female with presents to the ED for vaginal pain , rash, and redness. Patient denies any dysuria hematuria. Patient was seen here 3 weeks ago for similar issue. Patient denies any abdominal pain, nausea, or vomiting. Medications Administered Discontinued Medications Generic Name Dose Route Start Last Admin Trade Name Freq PRN Reason Stop Dose Admin Cefuroxime Axetil 500 mg 12/30/23 22:38 12/30/23 23:10 Cefuroxime Axetil 500 Mg Tablet PO 12/30/23 22:39 500 mg ONCE ONE Administration Fluconazole 150 mg 12/30/23 22:44 12/30/23 23:10 Fluconazole 150 Mg Tablet PO 12/30/23 22:45 150 mg ONCE ONE Administration Medical Decision Making Medical Decision Making [facility] Narrative: Patient with dysuria/frequency, UA showed WBCs more than 50 with bacteria positive will prescribe Ceftin and Diflucan for vaginal candidiasis Differential Diagnosis Differential Diagnoses: The differential diagnosis associated with the presentation includes UTI/vaginosis Lab Data [facility] Lab Attestation statement: I reviewed the patient's lab results. Labs: Lab Results 12/30/23 Range/Units 21:34 Urine Color Yellow Urine Appearance Clear Urine pH 5.5 (5.0-9.0) Ur Specific [place] 1.010 (1.005-1.025) Urine Protein Negative (Neg-Trace) mg/dL Urine Glucose (UA) Negative (Negative) mg/dL Urine Ketones Negative (Negative) mg/dL Urine Blood Trace H (Negative) Urine Nitrite Negative (Negative) Ur Leukocyte Esterase Large (3+) H (Negative) Urine RBC 3-5 H (0-2) /HPF Urine WBC >50 H (0-5) /HPF Ur Squamous Epith Cells 0-2 (0-2) /HPF Urine Bacteria Trace (None Seen) Hyaline Casts 0-2 (0-2) /LPF Discharge Plan Discharge Clinical Impression: Acute UTI, Candidiasis of vulva and vagina Patient Disposition: Home, Self-Care Instructions: Urinary Tract Infection in Women (ED), Yeast Infection (ED) Additional Instructions: Drink plenty of fluids Antibiotic as prescribed Report to ER if increased abdominal discomfort/nausea/vomiting/fever Prescriptions: New cefuroxime axetil 250 mg tablet 250 mg PO BID 7 Days Qty: 14 0RF No Action albuterol sulfate 2.5 mg /3 mL (0.083 %) solution for nebulization 2.5 mg inhalation Q6H PRN (Reason: shortness of breath or wheezing) Qty: 75 0RF (DME) nebulizers Misc See Rx Instructions .Route Qty: 1 0RF Rx Instructions: As directed fluticasone propionate [Flonase Allergy Relief] 50 mcg/actuation spray,suspension 1 spray intranasal DAILY Qty: 100 0RF Rx Instructions: administer into each nostril loratadine 10 mg tablet 10 mg PO DAILY Qty: 90 0RF cholecalciferol (vitamin D3) 50 mcg (2,000 unit) capsule 50 mcg PO DAILY Qty: 30 3RF naproxen 500 mg tablet 500 mg PO BEDTIME Qty: 30 0RF furosemide 40 mg tablet 40 mg PO DAILY Qty: 90 1RF simvastatin 40 mg tablet 40 mg PO BEDTIME Qty: 90 1RF fluticasone propionate 220 mcg/actuation HFA aerosol inhaler 2 puff inhalation BID Qty: 12 2RF albuterol sulfate 90 mcg/actuation HFA aerosol inhaler 2 puff inhalation Q4-6H PRN (Reason: shortness of breath or wheezing) Qty: 8.5 1RF lisinopril 30 mg tablet 30 mg PO DAILY Qty: 90 1RF baclofen 10 mg tablet 10 mg PO QID Qty: 120 0RF (DME) adult pullups medium See Rx Instructions .Route .MEDSUPPLY Qty: 210 11RF Rx Instructions: As directed miscellaneous medical supply Misc 1 ea miscellaneous .4xday Qty: 120 11RF Rx Instructions: pull-ups, adult size large miscellaneous medical supply Misc 1 ea miscellaneous .4xday Qty: 200 11RF Rx Instructions: Disposable body wash wipes miscellaneous medical supply Misc 1 ea miscellaneous DAILY Qty: 30 11RF Rx Instructions: disposable bed pads pregabalin 100 mg capsule 100 mg PO BID Qty: 60 0RF benzonatate 200 mg capsule 200 mg PO TID PRN (Reason: cough) Qty: 30 0RF pramoxine [Proctofoam] 1 % foam 1 appl MS TID Qty: 15 0RF lidocaine HCl [Lidocaine Viscous] 2 % solution 1 appl mucous membrane Q4H Qty: 100 0RF Rx Instructions: 2.5mL applied rectally Q4H as needed for rectal pain hydrocortisone 1 % ointment 1 appl topical BID polyethylene glycol 3350 [Miralax] 17 gram/dose powder 17 g PO DAILY PRN (Reason: constipation) Qty: 238 0RF sulfamethoxazole-trimethoprim [Bactrim DS] 800-160 mg tablet 1 tab PO BID 5 Days Qty: 10 0RF miscellaneous medical supply Misc 1 ea miscellaneous DAILY Qty: 1 0RF Rx Instructions: nebulizer machine with tubing sertraline 25 mg tablet 25 mg PO DAILY Qty: 90 1RF peg 3350-electrolytes [Golytely] 236-22.74-6.74 -5.86 gram recon soln 240 ml PO Q10M 1 Days Qty: 4000 0RF Rx Instructions: until fecal effluent is clear; do not exceed a total volume of 2,000 mL Myrbetriq 25 mg tablet extended release 24 hr 25 mg PO DAILY 90 Days Qty: 90 3RF Interventions: ED Discharge Assessment Last Done: 12/30/23 23:10 Discharge Date/Time: 12/30/23 23:10 Print Language: Romanian
[2023-12-30 21:32] VITALS: BP 168/70; PULSE 83; RESP 16; TEMP 36.2; O2SAT 97
[2023-12-30 21:59] LABS: Appearance Urine Clear; Color Urine Yellow; Glucose Urine UA Negative (Negative); Leukocyte Esterase Urine Large (3+) (Negative); Nitrite Urine Negative (Negative); PH 5.5 (5.0-9.0); UMIC TRIGGER UACC YES; Urine Blood Trace (Negative); Urine Ketones Negative (Negative); Urine Protein Negative (Neg-Trace)
[2023-12-30 22:02] LABS: Bacteria Urine Trace (None Seen); Hyaline Casts Urine 0-2 /LPF (0-2); Squamous Epithelial Cell Urine 0-2 /HPF (0-2); UACC Culture Trigger YES; WBC Urine >50 /HPF (0-5)
[2023-12-30 23:10] VITALS: BP 168/70; PULSE 83; RESP 16; TEMP 36.2; O2SAT 97
[2023-12-30] MEDS: cefuroxime axetiL 500 MG TABLET PO (23:10)
[2023-12-30] MEDS: Fluconazole 150 MG TABLET PO (23:10)
== END 2023-12-30 23:10 | disposition home or self-care (01) ==
PROVIDERS: Emergency Provider Internal Medicine; PCP Internal Medicine
DX: N39.0 Urinary tract infection, site not specified (principal); B37.31 Acute candidiasis of vulva and vagina; Z79.899 Other long term (current) drug therapy
CPT/HCPCS: 81001; 81003; 87086; 87088; 87186; 99283

== ENCOUNTER 2024-01-02 08:58 | Outpatient (AMB) | payer OTHER, SELFPAY ==
--- NOTE | 2024-01-02 08:59 | MHC.PC.OV ---
Vital Signs 01/02/24 09:01 Height 5 ft 1 in BMI Reason not done Patient refused/unable BP 110/62 Blood Pressure Location Lt brachial Position Sitting Pulse 72 Pulse Source Pulse Oximeter Pulse Oximetry (%) 94 Oxygen Delivery Method Room Air Intake Visit Reasons: uti and rash Intake Note: Patient is here to follow-up [place] [facility] [place] Allergies sulfamethoxazole [From Bactrim] Allergy (Verified 01/02/24 10:00) Rash trimethoprim [From Bactrim] Allergy (Verified 01/02/24 10:00) Rash Medication List - Last Reconciled 01/02/24 by Mil Gilman MD [adult pullups As directed] albuterol sulfate 2.5 mg (3 mL) inhalation Q6H PRN albuterol sulfate 90 mcg/actuation 2 puffs inhalation Q4-6H PRN baclofen 10 mg PO QID benzonatate 200 mg PO TID PRN cefuroxime axetil 250 mg PO BID 7 days cholecalciferol (vitamin D3) 50 mcg PO DAILY fluticasone propionate 50 mcg/actuation (Flonase Allergy Relief) 1 spray intranasal DAILY fluticasone propionate 220 mcg/actuation 2 puffs inhalation BID furosemide 40 mg PO DAILY hydrocortisone 1% 1 appl topical BID lidocaine HCl 2% (Lidocaine Viscous) 1 appl mucous membrane Q4H lisinopril 30 mg PO DAILY loratadine 10 mg PO DAILY mirabegron ER (Myrbetriq) 25 mg PO DAILY 90 days miscellaneous medical supply 1 ea miscellaneous DAILY miscellaneous medical supply 1 ea miscellaneous .4xday miscellaneous medical supply 1 ea miscellaneous .4xday miscellaneous medical supply 1 ea miscellaneous DAILY naproxen 500 mg PO BEDTIME nebulizers As directed peg 3350-electrolytes 236-22.74-6.74 -5.86 gram (Golytely) 240 mL PO Q10M 1 day polyethylene glycol 3350 (Miralax) 17 grams PO DAILY PRN pramoxine 1% (Proctofoam) 1 appl [place] TID pregabalin 100 mg PO BID sertraline 25 mg PO DAILY simvastatin 40 mg PO BEDTIME Tobacco use date assessed: 12/05/23 Fall risk assessment: No Falls in past year Last assessed Fall Risk: 01/02/24 Dental Screening Dental Screen Date: 09/26/23 HPI uti and rash HPI Details 73-year-old female presents to the office for a hospital discharge follow-up. Patient was discharged from the emergency room. She is accompanied by her son who is translating. Patient is a paraplegic and comes to the exam room in a wheelchair. She was seen in the emergency room on 2 separate occasions. Patient is experiencing symptoms of itching and a rash in the vaginal area and the rectal area. A pelvic exam was done on the 1st emergency room visit. Examination of the perineal area reveal no rash. There was no fungal growth on culture. A hemorrhoid was diagnosed and patient was given a suppository. She also has a surgical appointment for December 29. She went back to the emergency room a week later when her symptoms of itching and burning in the vaginal area recurred. She was diagnosed with a bladder infection and is on antibiotics. Currently her symptoms have all subsided. Patient is incontinent to urine and wears diapers. Her son manually transfers her to the toilet seat and back to the wheelchair. Patient stopped taking the sertraline a few months ago. She takes Naprosyn intermittently. She would like a refill for the same. [facility] Medical History Paraplegia Encounter to establish care History of shingles Cellulitis Asthma Surgical History History of partial hysterectomy Status post right foot surgery Family History Mother Heart failure Father Heart attack Other Mental health disorder Substance use disorder Social History Housing: Apartment Alcohol intake: current Alcohol intake frequency: holidays/special occasions only Patient Tobacco Use Status: Never used Tobacco e-Cigarette/Vaping Use: Never Used Second Hand Smoke Exposure: No service: No Current occupational status: disabled Cognitive needs: Yes (wheelchair) Hearing needs: No Vision needs: Yes Questionnaire Thrive Questionnaire Date Thrive assessed: 09/26/23 AUDIT C Alcohol Use Questionnaire (AUDIT-C) 1. How often do you have a drink containing alcohol?: Never Total Score: 0 LAMIN-7 AMB Questionnaire LAMIN-7 Date LAMIN - 7 assessed: 09/26/23 Source: Developed by Drs. Vern Canchola, Anita Peters, Hardik Russo and colleagues, with an educational jeremie from [employer]. Physical exam (Primary Care) Vital Signs: Last Vital Signs Pulse 72 01/02/24 09:01 BP 110/62 01/02/24 09:01 Pulse Ox 94 01/02/24 09:01 Oxygen Delivery Method Room Air 01/02/24 09:01 Tobacco/Smoking Status: Tobacco use Status Tobacco use date assessed 12/05/23 01/02/24 08:59 Patient Tobacco Use Status Never used Tobacco 01/02/24 08:59 e-Cigarette/Vaping Use Never Used 01/02/24 08:59 Thrive Assessment: Date of Thrive Assessment Date Thrive assessed 09/26/23 01/02/24 08:59 Const General: cooperative and healthy appearing Nutritional Appearance: well nourished Orientation/consciousness: patient oriented x3 Limitations: no limitations HENMT Head: Yes normal to inspection Eyes General: appearance normal, both eyes and all related structures Neck Neck: Yes normal visual inspection Chest Chest palpation & inspection: normal palpation of entire chest wall Resp Effort & Inspection: normal respiratory effort Neuro General: patient oriented x3 Assessment and Plan Assessment & Plan (1) Overactive bladder: Code(s): N32.81 - Overactive bladder Plan: A senior abap developer appointment has been scheduled. Cologuard has been ordered. Complete the antibiotic course started in the emergency room. ED note reviewed. Orders: Referrals TURNTABLE ENGINEER Referral N32.81 - Overactive bladder Cologuard Test Z12.11 - Encounter for screening for malignant neoplasm of colon Coding Level of Care Code Est Pt Level 3 (52624) Complex EM visit Add On G2211 Diagnoses Overactive bladder N32.81
[2024-01-02 09:01] VITALS: BP 110/62; PULSE 72; O2SAT 94
== END 2024-01-02 10:49 | disposition home or self-care (01) ==
PROVIDERS: PCP Internal Medicine; Visit Provider Internal Medicine
DX: N32.81 Overactive bladder (principal)
CPT/HCPCS: 99213; G2211

== ENCOUNTER 2024-01-03 13:08 | Emergency (ER) | payer OTHER, SELFPAY ==
[2024-01-03 13:13] VITALS: BP 122/68; PULSE 92; RESP 16; TEMP 36.3; O2SAT 95; BMI 33.8
[2024-01-03 13:48] LABS: Appearance Urine Clear; Color Urine Yellow; Glucose Urine UA Negative (Negative); Leukocyte Esterase Urine Negative (Negative); Nitrite Urine Negative (Negative); Specific Gravity - Urine <= 1.005 (1.005-1.025); Urine Blood Negative (Negative); Urine Ketones Negative (Negative); Urine Protein Negative (Neg-Trace)
--- NOTE | 2024-01-03 15:59 | ED.GENADULT ---
HPI - General Adult General Chief complaint: General Medical Stated complaint: rash and lump lower abd Time Seen by Provider: 01/03/24 15:22 Source: patient Mode of arrival: ambulatory Limitations: no limitations History of Present Illness ED Provider: Zachery Rhoades PA-C HPI narrative: 73 yo Estonian speaking female with history of paraplegia, overactive bladder, recent UTI on Ceftin as of 4 days ago who presents to the ER for evaluation of an ongoing itchy and red rash in her groin area. They have been putting Neosporin on the area and using gold patel powder. Family also reported a lump in her upper pubic that was noticed morning. Patient denies any abdominal pain, nausea, vomiting, diarrhea, fever, chills. Her urinary symptoms have resolved. She reports some vaginal itching without any discharge. She is not diabetic. She was given a dose of fluconazole on her visit on December 29. MD complaint: Red rash inguinal area Onset (ago): day(s) Location: abdomen and genitals Severity: moderate Quality: other (Burning and itching) Pain Consistency: constant Relieving factors: medication Associated symptoms: denies other symptoms Treatments prior to arrival: other (Topical Neosporin) Related Data Home Medications ?Medication ?Instructions ?Recorded ?Confirmed hydrocortisone 1 % topical ointment 1 appl topical BID 02/09/22 01/02/24 Previous Rx's ?Medication ?Instructions ?Recorded polyethylene glycol 3350 17 17 g PO DAILY PRN constipation 02/09/22 gram/dose oral powder (Miralax) #238 grams peg 3350-electrolytes 236 240 ml PO Q10M 1 day #4,000 mL 04/11/22 gram-22.74 gram-6.74 gram-5.86 gram solution (Golytely) benzonatate 200 mg capsule 200 mg PO TID PRN cough #30 caps 04/13/23 miscellaneous medical supply 1 ea miscellaneous DAILY #1 ea 05/15/23 albuterol sulfate 2.5 mg/3 mL 2.5 mg (3 mL) inhalation Q6H PRN 06/08/23 (0.083 %) solution for nebulization shortness of breath or wheezing #75 mL nebulizers #1 ea 06/08/23 fluticasone propionate 50 1 spray intranasal DAILY allergy 08/15/23 mcg/actuation nasal symptoms #100 mL spray,suspension (Flonase Allergy Relief) mirabegron 25 mg tablet,extended 25 mg PO DAILY 90 days #90 tabs 09/12/23 release 24 hr (Myrbetriq) cholecalciferol (vitamin D3) 50 50 mcg PO DAILY #30 caps 10/15/23 mcg (2,000 unit) capsule loratadine 10 mg tablet 10 mg PO DAILY #90 tabs 10/15/23 sertraline 25 mg tablet 25 mg PO DAILY #90 tabs 11/05/23 naproxen 500 mg tablet 500 mg PO BEDTIME #30 tabs 11/16/23 albuterol sulfate 90 mcg/actuation 2 puff inhalation Q4-6H PRN 11/18/23 aerosol inhaler shortness of breath or wheezing #8.5 grams fluticasone propionate 220 2 puff inhalation BID #12 grams 11/18/23 mcg/actuation HFA aerosol inhaler furosemide 40 mg tablet 40 mg PO DAILY #90 tabs 11/18/23 lisinopril 30 mg tablet 30 mg PO DAILY #90 tabs 11/18/23 simvastatin 40 mg tablet 40 mg PO BEDTIME #90 tabs 11/18/23 baclofen 10 mg tablet 10 mg PO QID #120 tabs 12/13/23 adult pullups #210 ea 12/14/23 lidocaine HCl 2 % mucosal solution 1 appl mucous membrane Q4H #100 mL 12/17/23 (Lidocaine Viscous) pramoxine 1 % topical foam 1 appl PA TID #15 grams 12/17/23 (Proctofoam) miscellaneous medical supply 1 ea miscellaneous .4xday #120 ea 12/18/23 miscellaneous medical supply 1 ea miscellaneous .4xday #200 ea 12/18/23 miscellaneous medical supply 1 ea miscellaneous DAILY #30 ea 12/18/23 pregabalin 100 mg capsule 100 mg PO BID #60 caps 12/28/23 cefuroxime axetil 250 mg tablet 250 mg PO BID 7 days #14 tabs 12/30/23 commode #1 ea 01/02/24 miconazole nitrate 2 % topical 1 appl topical BID #42.5 grams 01/03/24 cream Allergies Allergy/AdvReac Type Severity Reaction Status Date / Time sulfamethoxazole Allergy Rash Verified 01/03/24 13:19 [From Bactrim] trimethoprim [From Bactrim] Allergy Rash Verified 01/03/24 13:19 Review of Systems Review of Systems: Yes all other systems are reviewed and are negative [facility] Past Medical History Medical History Paraplegia Encounter to establish care History of shingles Cellulitis Asthma Surgical History History of partial hysterectomy Status post right foot surgery Family History Family History Mother Heart failure Father Heart attack Other Mental health disorder Substance use disorder Social History Social History Housing: Apartment Alcohol intake: current Alcohol intake frequency: holidays/special occasions only Patient Tobacco Use Status: Never used Tobacco e-Cigarette/Vaping Use: Never Used Second Hand Smoke Exposure: No Advance Directives: No Advance Directives Information Provided: No service: No Current occupational status: disabled Cognitive needs: Yes (wheelchair) Hearing needs: No Vision needs: Yes Physical Exam ED Vital Signs: Vital Signs - 24 hr 01/03/24 13:13 Temperature 97.3 F Pulse Rate 92 Respiratory Rate 16 Blood Pressure 122/68 Pulse Oximetry 95 Oxygen Delivery Method Room Air BMI result Body Mass Index 33.8 Appearance: Alert. Oriented X3. No acute distress. Head: normocephalic, atraumatic. Eyes: Pupils equal, round and reactive to light. ENT: Pharynx normal. No tonsillar swelling or exudate. Neck: Normal inspection. Neck supple. CVS: Normal heart rate and rhythm. Pulses normal. Respiratory: No respiratory distress. Breath sounds normal. Abdomen: Obese, Soft and nontender, under the pannus there is an erythematous rash and in the inguinal folds. no palpable mass Skin: Skin warm and dry. Normal skin color. Normal skin turgor. No rashes. Extremities: No lower extremity edema. No joint swelling. Neuro/psych: Oriented X 3 Medications Administered Discontinued Medications Generic Name Dose Route Start Last Admin Trade Name Freq PRN Reason Stop Dose Admin Fluconazole 150 mg 01/03/24 16:06 01/03/24 16:49 Fluconazole 150 Mg Tablet PO 01/03/24 16:07 150 mg ONCE ONE Administration Medical Decision Making Medical Decision Making [facility] Narrative: 73-year-old female presents to the ER for evaluation of a pruritic, erythematous rash on her lower abdomen/pannus and in her inguinal folds. She was seen here recently, given a dose of Diflucan and started on antibiotics for a UTI. Family reported a ?puffy area in the pannus. On examination there is no palpable mass. . Erythematous and tender, it is involving the inguinal folds and most consistent with a candidiasis rash. Will repeat dose of Diflucan today, provide topical treatment. Her urinalysis today is negative for infection. She has a couple more days of Ceftin left. Advised to continue. Patient has no abdominal pain, fevers. She is stable to be discharged home with topical treatment for her fungal rash. Family at the bedside and agrees with plan Differential Diagnosis Differential Diagnoses: The differential diagnosis associated with the presentation includes Hernia, candidiasis, panniculitis, cellulitis, vaginitis Admission/Observation Consideration of admission/observation: Escalation of care including admission/observation considered Lab Data [facility] Lab Attestation statement: I reviewed the patient's lab results. Negative for UTI Labs: Lab Results 01/03/24 Range/Units 13:31 Urine Color Yellow Urine Appearance Clear Urine pH 6.0 (5.0-9.0) Ur Specific [place] <= 1.005 (1.005-1.025) Urine Protein Negative (Neg-Trace) mg/dL Urine Glucose (UA) Negative (Negative) mg/dL Urine Ketones Negative (Negative) mg/dL Urine Blood Negative (Negative) Urine Nitrite Negative (Negative) Ur Leukocyte Esterase Negative (Negative) Independent Historian Clinical information obtained from an independent historian. History obtained from or confirmed by: Other (Adult son at the bedside who provides care and translation) External Record Review External record reviewed: Office record, Outpatient record, Prior outpatient labs and Prior outpatient radiology Prescription Management I considered prescription management with: Pain Medication and Antibiotic Chronic Conditions Patient?s care impacted by: Other (obesity, paraplegia) Critical Care Time Critical Care Time Critical Care Time: No Discharge Plan Discharge Clinical Impression: Candidiasis Patient Disposition: Home, Self-Care Instructions: Yeast Infection (ED) Additional Instructions: Your urine test today showed resolution of the urinary tract infection. Continue/complete the previously prescribed oral antibiotics to complete treatment. Your given a 2nd dose of an antifungal medication to treat the rash in the inguinal region. Use the prescribed antifungal cream to the area 1-2 times per day. It is important to keep the area dry to prevent further rash. Follow-up with your primary care doctor. If you develop new or worsening symptoms call 911 or come back to the ER for further evaluation. Prescriptions: New miconazole nitrate 2 % cream 1 appl topical BID Qty: 42.5 0RF No Action albuterol sulfate 2.5 mg /3 mL (0.083 %) solution for nebulization 2.5 mg inhalation Q6H PRN (Reason: shortness of breath or wheezing) Qty: 75 0RF (DME) nebulizers Misc See Rx Instructions .Route Qty: 1 0RF Rx Instructions: As directed fluticasone propionate [Flonase Allergy Relief] 50 mcg/actuation spray,suspension 1 spray intranasal DAILY Qty: 100 0RF Rx Instructions: administer into each nostril loratadine 10 mg tablet 10 mg PO DAILY Qty: 90 0RF cholecalciferol (vitamin D3) 50 mcg (2,000 unit) capsule 50 mcg PO DAILY Qty: 30 3RF naproxen 500 mg tablet 500 mg PO BEDTIME Qty: 30 0RF furosemide 40 mg tablet 40 mg PO DAILY Qty: 90 1RF simvastatin 40 mg tablet 40 mg PO BEDTIME Qty: 90 1RF fluticasone propionate 220 mcg/actuation HFA aerosol inhaler 2 puff inhalation BID Qty: 12 2RF albuterol sulfate 90 mcg/actuation HFA aerosol inhaler 2 puff inhalation Q4-6H PRN (Reason: shortness of breath or wheezing) Qty: 8.5 1RF lisinopril 30 mg tablet 30 mg PO DAILY Qty: 90 1RF baclofen 10 mg tablet 10 mg PO QID Qty: 120 0RF (DME) adult pullups medium See Rx Instructions .Route .MEDSUPPLY Qty: 210 11RF Rx Instructions: As directed miscellaneous medical supply Misc 1 ea miscellaneous .4xday Qty: 120 11RF Rx Instructions: pull-ups, adult size large miscellaneous medical supply Misc 1 ea miscellaneous .4xday Qty: 200 11RF Rx Instructions: Disposable body wash wipes miscellaneous medical supply Misc 1 ea miscellaneous DAILY Qty: 30 11RF Rx Instructions: disposable bed pads pregabalin 100 mg capsule 100 mg PO BID Qty: 60 0RF (DME) commode See Rx Instructions .Route .MEDSUPPLY Qty: 1 0RF Rx Instructions: As directed benzonatate 200 mg capsule 200 mg PO TID PRN (Reason: cough) Qty: 30 0RF pramoxine [Proctofoam] 1 % foam 1 appl PA TID Qty: 15 0RF lidocaine HCl [Lidocaine Viscous] 2 % solution 1 appl mucous membrane Q4H Qty: 100 0RF Rx Instructions: 2.5mL applied rectally Q4H as needed for rectal pain cefuroxime axetil 250 mg tablet 250 mg PO BID 7 Days Qty: 14 0RF hydrocortisone 1 % ointment 1 appl topical BID polyethylene glycol 3350 [Miralax] 17 gram/dose powder 17 g PO DAILY PRN (Reason: constipation) Qty: 238 0RF miscellaneous medical supply Misc 1 ea miscellaneous DAILY Qty: 1 0RF Rx Instructions: nebulizer machine with tubing sertraline 25 mg tablet 25 mg PO DAILY Qty: 90 1RF peg 3350-electrolytes [Golytely] 236-22.74-6.74 -5.86 gram recon soln 240 ml PO Q10M 1 Days Qty: 4000 0RF Rx Instructions: until fecal effluent is clear; do not exceed a total volume of 2,000 mL Myrbetriq 25 mg tablet extended release 24 hr 25 mg PO DAILY 90 Days Qty: 90 3RF Interventions: ED Discharge Assessment Last Done: 01/03/24 17:11 Discharge Date/Time: 01/03/24 17:11 Print Language: Estonian
[2024-01-03] MEDS: Fluconazole 150 MG TABLET PO (16:49)
[2024-01-03 17:11] VITALS: BP 122/68; PULSE 92; RESP 16; TEMP 36.3; O2SAT 95
== END 2024-01-03 17:11 | disposition home or self-care (01) ==
PROVIDERS: Physician Assistant Medical; Emergency Provider Student in an Organized Health Care Education/Training Program; PCP Internal Medicine
DX: B37.2 Candidiasis of skin and nail (principal); R21 Rash and other nonspecific skin eruption; G82.20 Paraplegia, unspecified; E66.9 Obesity, unspecified; Z68.33 Body mass index [BMI] 33.0-33.9, adult; Z87.440 Personal history of urinary (tract) infections; Z99.3 Dependence on wheelchair
CPT/HCPCS: 81003; 99282; 99283

== ENCOUNTER 2024-01-10 08:32 | Outpatient (AMB) | payer OTHER, SELFPAY ==
--- NOTE | 2024-01-10 08:53 | MHC.OFFVIS ---
Vital Signs 01/10/24 09:00 Height 5 ft 1 in Weight 179 lb BMI 33.8 Intake Visit Reasons: 4 Month Follow Up-CONF Intake Note: Patient presents for 4 month follow up Window Maker Required: Yes Window Maker Name: [email or web address] hale Information Interpreted: non-clinical & clinical Allergies sulfamethoxazole [From Bactrim] Allergy (Verified 01/10/24 09:04) Rash trimethoprim [From Bactrim] Allergy (Verified 01/10/24 09:04) Rash Medication List - Last Reconciled 01/10/24 by DYLAN Hatch [adult pullups As directed] albuterol sulfate 2.5 mg (3 mL) inhalation Q6H PRN albuterol sulfate 90 mcg/actuation 2 puffs inhalation Q4-6H PRN baclofen 10 mg PO QID benzonatate 200 mg PO TID PRN cefuroxime axetil 250 mg PO BID 7 days cholecalciferol (vitamin D3) 50 mcg PO DAILY [commode As directed] fluticasone propionate 50 mcg/actuation (Flonase Allergy Relief) 1 spray intranasal DAILY fluticasone propionate 220 mcg/actuation 2 puffs inhalation BID furosemide 40 mg PO DAILY hydrocortisone 1% 1 appl topical BID lidocaine HCl 2% (Lidocaine Viscous) 1 appl mucous membrane Q4H lisinopril 30 mg PO DAILY loratadine 10 mg PO DAILY miconazole nitrate 2% 1 appl topical BID mirabegron ER (Myrbetriq) 25 mg PO DAILY 90 days miscellaneous medical supply 1 ea miscellaneous DAILY miscellaneous medical supply 1 ea miscellaneous .4xday miscellaneous medical supply 1 ea miscellaneous .4xday miscellaneous medical supply 1 ea miscellaneous DAILY naproxen 500 mg PO BEDTIME nebulizers As directed peg 3350-electrolytes 236-22.74-6.74 -5.86 gram (Golytely) 240 mL PO Q10M 1 day polyethylene glycol 3350 (Miralax) 17 grams PO DAILY PRN pramoxine 1% (Proctofoam) 1 appl [place] TID pregabalin 100 mg PO TID 30 days sertraline 25 mg PO DAILY simvastatin 40 mg PO BEDTIME HPI Comments Details: 73-yr-old female presents for 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 Pt is accompanied by her son. Pt denies any interval history changes. BLE EMG/NCS showed BLE chronic, symmetric, axonal and motor neuropathy, concerning for a hereditary neuropathy. Pt's has strong family h/o of similar s/s, especially in the females. Her dtr has started to develop weakness. She continues to have BLE weakness, numbness, leg spasms a/w jolts of pain. She denies any numbness/weakness/paresthesias in her arms. She spends most of her day in a recliner. Her son assists her with all mobility- sometimes pt's legs give out so cannot self-transfer. They had tried to use a transfer lift- but was not helpful as pt can have urinary urgency. States Baclofen 10mg qid (between ~6am and 7pm- the hours she is OOB)and Pregagablin 100mg bid help some. Tizanidine previously helped a bit better than baclofen- but caused sleepiness and was told she could not take both together. She did not have b-12 level checked yet. BLE EMG/NCS: IMPRESSION: 1. This is an abnormal study. 2. 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 Consider genetic testing of patient and daughter. [facility] Medical History (Updated 01/10/24 @ 21:44 by DYLAN Hatch) Paraplegia Encounter to establish care History of shingles Cellulitis Asthma Surgical History History of partial hysterectomy Status post right foot surgery Family History Mother Heart failure Father Heart attack Other Mental health disorder Substance use disorder Social History Housing: Apartment Alcohol intake: current Alcohol intake frequency: holidays/special occasions only Patient Tobacco Use Status: Never used Tobacco e-Cigarette/Vaping Use: Never Used Second Hand Smoke Exposure: No service: No Current occupational status: disabled Cognitive needs: Yes (wheelchair) Hearing needs: No Vision needs: Yes Review of Systems Const All systems reviewed & are unremarkable except as noted in HPI and below Physical Exam Vital Signs: BMI result Body Mass Index 33.8 Const General: cooperative and no acute distress Orientation/consciousness: patient oriented x3 HEENT Head: Yes normocephalic Resp Effort & Inspection: normal respiratory effort and able to speak in complete sentences Neuro Other: BLE weakness- more so on left. Minimal ability in left hip flexor against gravity. Better ability in right hip flexor against gravity, minimal ability against resistance. BLE decreased light touch sensation. Absent vibration sensation. 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 Will refer pt for genetic testing- advised pt's dtr should attend consult appt as well. Offered referal to home OT to help optimize transfer technique etc, however pt and son feel they are doing well and that pt's insurance does send a PT to the home twice a year to assess. Continue Baclofen 10mg qid. Trial increasing Pregabalin from 100mg bid to 100mg tid- in hopes this helps leg spasms and associated pains. f/u upon review of above and in 6 months or sooner prn. Orders: Orders Vitamin B12 and Folate Today F41.9 - Anxiety disorder, unspecified, G62.9 - Polyneuropathy, unspecified, G82.20 - Paraplegia, unspecified, I10 - Essential (primary) hypertension, M62.838 - Other muscle spasm TSH reflex Free T4 Today F41.9 - Anxiety disorder, unspecified, G62.9 - Polyneuropathy, unspecified, G82.20 - Paraplegia, unspecified, I10 - Essential (primary) hypertension, M62.838 - Other muscle spasm Hemoglobin A1c Today F41.9 - Anxiety disorder, unspecified, G62.9 - Polyneuropathy, unspecified, G82.20 - Paraplegia, unspecified, I10 - Essential (primary) hypertension, M62.838 - Other muscle spasm CRP High Sensitivity Today F41.9 - Anxiety disorder, unspecified, G62.9 - Polyneuropathy, unspecified, G82.20 - Paraplegia, unspecified, I10 - Essential (primary) hypertension, M62.838 - Other muscle spasm Erythrocyte Sedimentation Rate Today F41.9 - Anxiety disorder, unspecified, G62.9 - Polyneuropathy, unspecified, G82.20 - Paraplegia, unspecified, I10 - Essential (primary) hypertension, M62.838 - Other muscle spasm Ferritin Today F41.9 - Anxiety disorder, unspecified, G62.9 - Polyneuropathy, unspecified, G82.20 - Paraplegia, unspecified, I10 - Essential (primary) hypertension, M62.838 - Other muscle spasm Vitamin D 25-OH (D2 and D3) Today F41.9 - Anxiety disorder, unspecified, G62.9 - Polyneuropathy, unspecified, G82.20 - Paraplegia, unspecified, I10 - Essential (primary) hypertension, M62.838 - Other muscle spasm Protein Electrophoresis 24HrUr Today F41.9 - Anxiety disorder, unspecified, G62.9 - Polyneuropathy, unspecified, G82.20 - Paraplegia, unspecified, I10 - Essential (primary) hypertension, M62.838 - Other muscle spasm Complete Blood Count Auto Diff Today F41.9 - Anxiety disorder, unspecified, G62.9 - Polyneuropathy, unspecified, G82.20 - Paraplegia, unspecified, I10 - Essential (primary) hypertension, M62.838 - Other muscle spasm Comprehensive Met. Panel Today F41.9 - Anxiety disorder, unspecified, G62.9 - Polyneuropathy, unspecified, G82.20 - Paraplegia, unspecified, I10 - Essential (primary) hypertension, M62.838 - Other muscle spasm Magnesium Today F41.9 - Anxiety disorder, unspecified, G62.9 - Polyneuropathy, unspecified, G82.20 - Paraplegia, unspecified, I10 - Essential (primary) hypertension, M62.838 - Other muscle spasm Creatine Kinase Total Today F41.9 - Anxiety disorder, unspecified, G62.9 - Polyneuropathy, unspecified, G82.20 - Paraplegia, unspecified, I10 - Essential (primary) hypertension, M62.838 - Other muscle spasm IRON PROFILE Today F41.9 - Anxiety disorder, unspecified, G62.9 - Polyneuropathy, unspecified, G82.20 - Paraplegia, unspecified, I10 - Essential (primary) hypertension, M62.838 - Other muscle spasm Protein Electrophoresis, Serum Today F41.9 - Anxiety disorder, unspecified, G62.9 - Polyneuropathy, unspecified, G82.20 - Paraplegia, unspecified, I10 - Essential (primary) hypertension, M62.838 - Other muscle spasm Referrals Genetics Referral G62.9 - Polyneuropathy, unspecified, G82.20 - Paraplegia, unspecified Medications: Changed From pregabalin 100 mg PO BID 60 caps 0RF M79.604 - Pain in right leg, M79.605 - Pain in left leg To pregabalin 100 mg PO TID 30 days 90 caps 0RF M79.604 - Pain in right leg, M79.605 - Pain in left leg Coding Level of Care Code Est Pt Level 4 (98633) Diagnoses Paraplegia G82.20 Peripheral polyneuropathy G62.9 Muscle spasms of lower extremity M62.838
[2024-01-10 09:00] VITALS: BMI 33.8
== END 2024-01-10 09:56 | disposition home or self-care (01) ==
PROVIDERS: PCP Nurse Practitioner Family; Visit Provider Nurse Practitioner Family
DX: G82.20 Paraplegia, unspecified (principal); G62.9 Polyneuropathy, unspecified; M62.838 Other muscle spasm
CPT/HCPCS: 99214

== ENCOUNTER → 2024-01-10 08:32 | Outpatient (BNVA) | payer OTHER, SELFPAY | PROVIDERS: PCP Nurse Practitioner Family; Visit Provider Nurse Practitioner Family | DX: G82.20 Paraplegia, unspecified (principal); G62.9 Polyneuropathy, unspecified; M62.838 Other muscle spasm | CPT/HCPCS: 99212 ==

== ENCOUNTER 2024-01-24 07:32 | Outpatient (REF) | payer OTHER, SELFPAY ==
[2024-01-24 07:48] LABS: MANUAL DIFF FLAG NO
[2024-01-24 08:26] LABS: Basophils Percent Auto 0.6 % (0-2); Eosinophils Absolute Auto 0.1 X10*3/uL (0.0-0.4); Hematocrit 42.7 % (37.0-47.0); Hemoglobin 13.8 g/dl (12.0-16.0); Imm Gran Abs Auto 0.03 X10*3/uL (0.00-0.03); Imm Gran Pct Auto 0.5 % (0.0-0.4); Lymphocytes Absolute Auto 2.1 X10*3/uL (1.2-4.9); Lymphocytes Percent Auto 32.5 % (20-40); Mean Corpuscular HGB Conc 32.3 g/dl (31.0-35.0); Mean Corpuscular Hemoglobin 28.1 pg (27.0-33.0); Mean Platelet Volume 9.7 fL (9.4-12.3); Monocytes Absolute Auto 0.5 X10*3/uL (0.1-1.2); Monocytes Percent Auto 6.8 % (2-11); Neutrophils Absolute Auto 3.8 x10*3/uL (2.0-8.3); Neutrophils Percent Auto 57.6 % (45-73); Platelet Count 236 X10*3/uL (160-400); Red Blood Count 4.91 X10*6/uL (4.20-5.50); Red Cell Distribution Width 15.6 % (11.0-16.0); White Blood Count 6.6 X10*3/uL (4.8-10.8)
[2024-01-24 08:30] LABS: Estimated Average Glucose 114 mg/dL; Hemoglobin A1c % 5.6 % (<6.0)
[2024-01-24 09:04] LABS: Erythrocyte Sedimentation Rate 34 MM/HR (0-20)
[2024-01-24 09:09] LABS: Alanine Aminotransferase 17 U/L (0-31); Albumin Level 4.2 g/dL (3.5-5.0); Alkaline Phosphatase 78 U/L (39-117); Anion Gap 15 (12-20); Aspartate Amino Transferase 16 U/L (5-31); Bilirubin Total 0.4 mg/dL (0.0-1.0); Blood Urea Nitrogen 10 mg/dL (9-16); Carbon Dioxide 27 mmol/L (22-29); Chloride 103 mmol/L (96-108); Estimated Glomerular Filt Rate > 60; Glucose Random 94 mg/dL (60-115); Iron 54 mcg/dL (30-160); Magnesium 2.1 mg/dL (1.6-2.6); Percent Iron Saturation 18 % (15-50); Potassium 4.1 mmol/L (3.3-5.1); Sodium 141 mmol/L (135-145); Total Iron Binding Capacity 305 mcg/dL (228-428); Total Protein 7.5 g/dL (6.5-8.0); Unsaturated Iron Binding 251 ug/dL
[2024-01-24 09:16] LABS: Ferritin 87 ng/mL (10-250)
[2024-01-24 09:24] LABS: Folate 9.2 ng/mL (> or = 4.0); Vitamin B12 402 pg/mL (200-900)
[2024-01-27 13:19] LABS: CRP High Sensitivity >20.0 mg/L
[2024-01-29 15:43] LABS: Creatinine, 24Hr Urine 0.35 g/24 h (0.50-2.15); PEU-PROT/CRE Ratio mg/mg 0.182 (<0.150); PEU24-Albumin Urine 100 %; PEU24-Alpha 1 Globulin 0 %; PEU24-Alpha 2 Globulin 0 %; PEU24-Beta Globulin 0 %; PEU24-Gamma Globulin 0 %; Total Protein 24Hr Urine 63 mg/24 h (<150); Total Protein/Creat Ratio 24h 182 mg/g creat (<150)
[2024-01-31 09:03] LABS: Prot Elec - Albumin 3.9 g/dL (3.8-4.8); Prot Elec - Alpha1 0.3 g/dL (0.2-0.3); Prot Elec - Beta 1 0.5 g/dL (0.4-0.6); Prot Elec - Beta 2 0.5 g/dL (0.2-0.5); Prot Elec - Gamma 0.8 g/dL (0.8-1.7); Prot Elec - Total Protein 6.9 g/dL (6.1-8.1)
== END 2024-01-24 07:33 | disposition home or self-care (01) ==
LOC: HO.LAB 07:32
PROVIDERS: PCP Internal Medicine; Visit Provider Nurse Practitioner Family
DX: G82.20 Paraplegia, unspecified (principal); G62.9 Polyneuropathy, unspecified; I10 Essential (primary) hypertension; F41.9 Anxiety disorder, unspecified; M62.838 Other muscle spasm; Z13.1 Encounter for screening for diabetes mellitus
CPT/HCPCS: 36415; 80053; 82306; 82550; 82570; 82607; 82728; 82746; 83036; 83540; 83735; 84156; 84165; 84166; 84443; 85025; 85652; 86141

== ENCOUNTER 2024-01-30 08:55 | Outpatient (AMB) | payer OTHER, SELFPAY ==
[2024-01-30 08:56] VITALS: BMI 33.8
--- NOTE | 2024-01-30 08:56 | A.OFFVIS_ITS ---
Vital Signs 01/30/24 08:56 Height 5 ft 1 in Weight 179 lb BMI 33.8 Intake Visit Reasons: Hemorrhoids Intake Note: This patient presents for Hemorrhoids assessment. Pt's son c/o; reports improvement over time, reports constipation, reports no rectal bleeding. Process Controller Required: No Accompanied by: Son -HEAD INSPECTOR AND CENTER MARKER Allergies sulfamethoxazole [From Bactrim] Allergy (Verified 01/30/24 09:04) Rash trimethoprim [From Bactrim] Allergy (Verified 01/30/24 09:04) Rash Medication List - Last Reconciled 01/30/24 by Enrike Fontanez MD [adult pullups As directed] albuterol sulfate 2.5 mg (3 mL) inhalation Q6H PRN albuterol sulfate 90 mcg/actuation 2 puffs inhalation Q4-6H PRN baclofen 10 mg PO QID benzonatate 200 mg PO TID PRN cefuroxime axetil 250 mg PO BID 7 days cholecalciferol (vitamin D3) 50 mcg PO DAILY [commode As directed] fluticasone propionate 50 mcg/actuation (Flonase Allergy Relief) 1 spray intranasal DAILY fluticasone propionate 220 mcg/actuation 2 puffs inhalation BID furosemide 40 mg PO DAILY hydrocortisone 1% 1 appl topical BID lidocaine HCl 2% (Lidocaine Viscous) 1 appl mucous membrane Q4H lisinopril 30 mg PO DAILY loratadine 10 mg PO DAILY miconazole nitrate 2% 1 appl topical BID mirabegron ER (Myrbetriq) 25 mg PO DAILY 90 days miscellaneous medical supply 1 ea miscellaneous DAILY miscellaneous medical supply 1 ea miscellaneous .4xday miscellaneous medical supply 1 ea miscellaneous .4xday miscellaneous medical supply 1 ea miscellaneous DAILY naproxen 500 mg PO BEDTIME nebulizers As directed peg 3350-electrolytes 236-22.74-6.74 -5.86 gram (Golytely) 240 mL PO Q10M 1 day polyethylene glycol 3350 (Miralax) 17 grams PO DAILY PRN pramoxine 1% (Proctofoam) 1 appl [place] TID pregabalin 100 mg PO TID 30 days sertraline 25 mg PO DAILY simvastatin 40 mg PO BEDTIME HPI HPI Hemorrhoids: Details: [age] year old female referred for hemorrhoid issues. The patient is wheelchair-bound because of peripheral polyneuropathy. She is unable to ambulate and put weight on both legs because of severe weakness. Her son is her full-time caregiver therefore. She apparently had significant swelling and pain of her hemorrhoids last November,. She did not have any significant problems with the hemorrhoids in the past She says that she feels much better now. She denies any pain or swelling. She states that she has occasional significant itching around her anus She admits to being chronically constipated. She does not have any problems with fecal incontinence. [facility] Medical History (Updated 01/30/24 @ 09:24 by Enrike Fontanez MD) Hemorrhoids with complication Paraplegia Encounter to establish care History of shingles Cellulitis Asthma Surgical History History of partial hysterectomy Status post right foot surgery Family History Mother Heart failure Father Heart attack Other Mental health disorder Substance use disorder Social History Housing: Apartment Alcohol intake: current Alcohol intake frequency: holidays/special occasions only Patient Tobacco Use Status: Never used Tobacco e-Cigarette/Vaping Use: Never Used Second Hand Smoke Exposure: No service: No Current occupational status: disabled Cognitive needs: Yes (wheelchair) Hearing needs: No Vision needs: Yes Review of Systems Const Denies chills and Denies fever(s) Card Denies chest pain and Denies dyspnea Resp Denies cough and Denies dyspnea GI Denies hematochezia, Denies change in bowel habits and Reports constipation Denies hematuria Musc Denies back pain and Denies limited range of motion Neuro Details: Severe weakness of both lower extremities, unable to put weight Reports focal weakness and Denies convulsions Psych Denies depression and Denies mood swings Physical Exam Vital Signs: BMI result Body Mass Index 33.8 Const Other: On wheelchair General: comfortable and no acute distress Resp Effort & Inspection: normal respiratory effort Cardio Rate: regular rate GI Other: Rectal exam shows large external hemorrhoids both left and right side, non thrombosed, non tender, not edematous Palpation (GI): Soft to palpation, not firm and nontender Office Procedures Anoscopy She was in left lateral decubitus position. The anoscope was gently inserted. A full examination of the anal canal was done. She did have this mixed hemorrhoidal columns, internal external on both the left and right side. These are non tender and not edematous. There were no lesions seen. There was no bleeding. There was [id number] Assessment & Plan Assessment & Plan (1) Hemorrhoids with complication: Code(s): K64.8 - Other hemorrhoids Category: Medical Plan: She has large internal and external hemorrhoids with note of an episode of pain and swelling last November,. Currently these are not inflamed and nonthrombosed I would not recommend proceeding with hemorrhoidectomy at this time with her 1 episode of swelling. She is generally asymptomatic otherwise I will send her prescription for Calmoseptine for some itching. I advised her on taking Metamucil for her chronic constipation as this will benefit her with regards to her hemorrhoid symptoms She can otherwise follow up with me on a p.r.n. basis.. Her son was comfortable with the plan. Medications: New menthol-zinc oxide 0.44-20.6 % (Calmoseptine) 1 appl topical QID PRN 113 grams 0RF hemorrhoids Coding Level of Care Code New Pt Level 3 (60292) Diagnoses Hemorrhoids with complication K64.8 CPT Codes Details - CPT: 47246-Wxnvarsq ([id number])
== END 2024-01-30 09:23 | disposition home or self-care (01) ==
PROVIDERS: PCP Internal Medicine; Visit Provider Surgery
DX: K64.8 Other hemorrhoids (principal)
CPT/HCPCS: 46600; 99203

== ENCOUNTER → 2024-01-30 08:55 | Outpatient (BNVA) | payer OTHER, SELFPAY | PROVIDERS: PCP Internal Medicine; Visit Provider Surgery | DX: K64.8 Other hemorrhoids (principal) | CPT/HCPCS: 46600; 99202 ==

== ENCOUNTER 2024-01-31 08:57 | Outpatient (AMB) | payer OTHER, SELFPAY ==
--- NOTE | 2024-01-31 09:31 | MHC.PC.OV ---
Vital Signs 01/31/24 09:33 Height 5 ft 1 in BMI Reason not done Patient refused/unable BP 130/72 Blood Pressure Location Lt brachial Position Sitting Pulse 69 Pulse Source Pulse Oximeter Pulse Oximetry (%) 91 L Oxygen Delivery Method Room Air Intake Visit Reasons: 3mth f/u Intake Note: Patient is here to follow up on Paralegia, HTN, GERD, HLD, Asthma. Furniture Mover Helper Required: Yes Furniture Mover Helper Language: Macanese Information Interpreted: non-clinical & clinical Steam Crane Operator: Present Accompanied by: Son Allergies sulfamethoxazole [From Bactrim] Allergy (Verified 02/04/24 10:50) Rash trimethoprim [From Bactrim] Allergy (Verified 02/04/24 10:50) Rash Medication List - Last Reconciled 02/04/24 by Mil Gilman MD [adult pullups As directed] albuterol sulfate 2.5 mg (3 mL) inhalation Q6H PRN albuterol sulfate 90 mcg/actuation 2 puffs inhalation Q4-6H PRN baclofen 10 mg PO QID benzonatate 200 mg PO TID PRN cholecalciferol (vitamin D3) 50 mcg PO DAILY [commode As directed] commode (bedside commode) As directed fluticasone propionate 50 mcg/actuation (Flonase Allergy Relief) 1 spray intranasal DAILY fluticasone propionate 220 mcg/actuation 2 puffs inhalation BID furosemide 40 mg PO DAILY hydrocortisone 1% 1 appl topical BID lidocaine HCl 2% (Lidocaine Viscous) 1 appl mucous membrane Q4H lisinopril 30 mg PO DAILY loratadine 10 mg PO DAILY menthol-zinc oxide 0.44-20.6 % (Calmoseptine) 1 appl topical QID PRN miconazole nitrate 2% 1 appl topical BID mirabegron ER (Myrbetriq) 25 mg PO DAILY 90 days miscellaneous medical supply 1 ea miscellaneous DAILY miscellaneous medical supply 1 ea miscellaneous .4xday miscellaneous medical supply 1 ea miscellaneous .4xday miscellaneous medical supply 1 ea miscellaneous DAILY naproxen 500 mg PO BEDTIME nebulizers As directed peg 3350-electrolytes 236-22.74-6.74 -5.86 gram (Golytely) 240 mL PO Q10M 1 day polyethylene glycol 3350 (Miralax) 17 grams PO DAILY PRN pramoxine 1% (Proctofoam) 1 appl [place] TID pregabalin 100 mg PO TID 30 days sertraline 25 mg PO DAILY simvastatin 40 mg PO BEDTIME Tobacco use date assessed: 01/31/24 Fall risk assessment: No Falls in past year Last assessed Fall Risk: 01/31/24 Dental Screening Dental Screen Date: 09/26/23 HPI 3mth f/u HPI Details 73-year-old female presents to the office to discuss her chronic medical conditions. She is accompanied by her son who is also her AWNING FINISHER and is translating for her. Patient is at baseline state of health. She is bound to a wheelchair due to her paraplegia. Occasional pain in the legs. Patient needs assistance for all her activities of daily living. [facility] Medical History Hemorrhoids with complication Paraplegia Encounter to establish care History of shingles Cellulitis Asthma Surgical History History of cataract surgery History of partial hysterectomy Status post right foot surgery Family History Mother Heart failure Father Heart attack Other Mental health disorder Substance use disorder Social History Housing: Apartment Alcohol intake: current Alcohol intake frequency: holidays/special occasions only Patient Tobacco Use Status: Never used Tobacco e-Cigarette/Vaping Use: Never Used Second Hand Smoke Exposure: No service: No Current occupational status: disabled Cognitive needs: Yes (wheelchair) Hearing needs: No Vision needs: Yes Questionnaire Thrive Questionnaire Date Thrive assessed: 09/26/23 LAMIN-7 AMB Questionnaire LAMIN-7 Date LAMIN - 7 assessed: 09/26/23 Source: Developed by Drs. Vern Canchola, Anita Peters, Hardik Russo and colleagues, with an educational jeremie from [employer]. Physical exam (Primary Care) Vital Signs: Last Vital Signs Pulse 69 01/31/24 09:33 BP 130/72 01/31/24 09:33 Pulse Ox 91 L 01/31/24 09:33 Oxygen Delivery Method Room Air 01/31/24 09:33 Tobacco/Smoking Status: Tobacco use Status Tobacco use date assessed 01/31/24 01/31/24 09:49 Patient Tobacco Use Status Never used Tobacco 01/31/24 09:49 e-Cigarette/Vaping Use Never Used 01/31/24 09:49 Thrive Assessment: Date of Thrive Assessment Date Thrive assessed 09/26/23 01/31/24 09:49 Const General: cooperative and healthy appearing Nutritional Appearance: well nourished Orientation/consciousness: patient oriented x3 Limitations: no limitations HENMT Head: Yes normal to inspection Eyes General: appearance normal, both eyes and all related structures Neck Neck: Yes normal visual inspection Chest Chest palpation & inspection: normal palpation of entire chest wall Resp Effort & Inspection: normal respiratory effort Neuro General: patient oriented x3 Assessment and Plan Assessment & Plan (1) 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 Patient also would like a refill on her antiviral cream. Medications: Refilled miconazole nitrate 2% 1 appl topical BID 42.5 grams 0RF Coding Level of Care Code Est Pt Level 3 (21382) Complex EM visit Add On G2211 Diagnoses Paraplegia G82.20
[2024-01-31 09:33] VITALS: BP 130/72; PULSE 69; O2SAT 91
== END 2024-01-31 10:19 | disposition home or self-care (01) ==
PROVIDERS: PCP Internal Medicine; Visit Provider Internal Medicine
DX: G82.20 Paraplegia, unspecified (principal)
CPT/HCPCS: 99213; G2211

== ENCOUNTER 2024-02-19 09:03 | Outpatient (AMB) | payer OTHER, SELFPAY ==
--- NOTE | 2024-02-19 09:19 | MHC.OFFVIS ---
Intake Visit Reasons: OV - B/L knee OA, last inj 11/16/23 Intake Note: Rita is a 73 year old female who presents today in a wheelchair for a follow up of bilateral knee OA, last injections 08/14/23. Patient reports last injections provided her with relief for about 2 months. She would like to repeat injections. Finishing Lab Technician Required: Yes Finishing Lab Technician Services: Finishing Lab Technician Offered & Declined Accompanied by: Son Allergies sulfamethoxazole [From Bactrim] Allergy (Verified 02/19/24 09:19) Rash trimethoprim [From Bactrim] Allergy (Verified 02/19/24 09:19) Rash HPI HPI OV - B/L knee OA, last inj 11/16/23: Details: 73-year-old female, who is Zambian speaking, presents in the office today for a follow-up of bilateral knee osteoarthritis. I last saw the patient in the office on 11/16/23 when she was given cortisone injections in the bilateral knees. While in the office today, the patient reports her last cortisone injection gave her about 2 months of relief. She is interested in repeating the injections today. She is still non ambulatory and wheelchair bound [facility] Medical History Hemorrhoids with complication Paraplegia Encounter to establish care History of shingles Cellulitis Asthma Surgical History History of cataract surgery History of partial hysterectomy Status post right foot surgery Family History Mother Heart failure Father Heart attack Other Mental health disorder Substance use disorder Social History Housing: Apartment Alcohol intake: current Alcohol intake frequency: holidays/special occasions only Patient Tobacco Use Status: Never used Tobacco e-Cigarette/Vaping Use: Never Used Second Hand Smoke Exposure: No service: No Current occupational status: disabled Cognitive needs: Yes (wheelchair) Hearing needs: No Vision needs: Yes Review of Systems Const All systems reviewed & are unremarkable except as noted in HPI and below Physical Exam Const General: cooperative, healthy appearing and no acute distress Resp Effort & Inspection: normal respiratory effort and able to speak in complete sentences Cardio Rate: regular rate Peripheral pulses: Peripheral pulses 2+ throughout GI Palpation (GI): Soft to palpation Skin Lesions: no lesions Rashes: no rashes Extrem Other: Bilateral knees: Normal to inspection. No ecchymosis, erythema, or joint effusion. Extension to about 40 degrees. Flexion to 80 degrees. Global tenderness to palpation. Unable to assess Radha's or anterior drawer. NVI. Office Procedures Joint Injection/Aspiration Joint Injection/Aspiration Primary Site: right knee Secondary Site: left knee Prep: site was prepped using aseptic technique, ethochloride spray was applied and injection warnings given Injected: 80 mg of, DepoMedrol, with 8 mL of (2% plain lido ) and in the joint Procedure: The patient tolerated the procedure well, but had some pain with the injection and there was some relief with the local anesthesia Coding 05056 - Large joint Procedure code (CPT) selection complete Assessment & Plan Assessment & Plan (1) Osteoarthritis of knees, bilateral: Code(s): M17.0 - Bilateral primary osteoarthritis of knee Category: Medical Qualifiers: Osteoarthritis type: unspecified Qualified Code(s): M17.0 - Bilateral primary osteoarthritis of knee Plan is a 73-year-old female, who is Zambian speaking, presents in the office today for a follow-up of bilateral knee osteoarthritis. I last saw the patient in the office on 11/16/23 when she was given cortisone injections in the bilateral knees. While in the office today, the patient reports her last cortisone injection gave her about 2 months of relief. She is interested in repeating the injections today. She is still non ambulatory and wheelchair bound. The patient was offered a cortisone injection in the bilateral knees with 80 mg of Depo-Medrol. The patient was explained the risks, benefits, and alternatives to receiving this injection. After receiving consent for the injection, the patient had the procedure done while in the office today. The patient tolerated the procedure well with no complication. Follow up will be PRN, or sooner if needed. Patient Instructions: Scribed by Ibis Aguilar medical housekeeper, for Shey Gongora PA-C on 02/19/24 at 9:45 am EST. Coding Level of Care Code Est Pt Level 3 (53665) Complex EM visit Add On G2211 Diagnoses Osteoarthritis of both knees, unspecified osteoarthritis type M17.0 Osteoarthritis type: unspecified CPT Codes Coding - 66624 Large joint: 82218 - Large joint ([id number])
== END 2024-02-19 09:49 | disposition home or self-care (01) ==
PROVIDERS: PCP Internal Medicine; Visit Provider Physician Assistant
DX: M17.0 Bilateral primary osteoarthritis of knee (principal)
CPT/HCPCS: 20610; 99213

== ENCOUNTER → 2024-02-19 09:03 | Outpatient (BNVA) | payer OTHER, SELFPAY | PROVIDERS: PCP Internal Medicine; Visit Provider Physician Assistant | DX: M17.0 Bilateral primary osteoarthritis of knee (principal) | CPT/HCPCS: 20610; 99212; J1010 ==

== ENCOUNTER 2024-02-21 11:15 | Outpatient (REF) | payer OTHER, SELFPAY ==
[2024-02-21 13:20] LABS: Appearance Urine Clear; Color Urine Yellow; Glucose Urine UA Negative (Negative); Leukocyte Esterase Urine Moderate (2+) (Negative); Nitrite Urine Negative (Negative); PH 6.5 (5.0-9.0); UMIC TRIGGER UA YES; Urine Blood Negative (Negative); Urine Ketones Negative (Negative); Urine Protein Negative (Neg-Trace)
[2024-02-21 13:24] LABS: Bacteria Urine 4+ (None Seen); Hyaline Casts Urine 0-2 /LPF (0-2); RBC Urine 0-2 /HPF (0-2); Squamous Epithelial Cell Urine 0-2 /HPF (0-2)
[2024-02-21 14:52] LABS: Total Protein Urine Random < 7 mg/dL (<12)
== END 2024-02-21 11:16 | disposition home or self-care (01) ==
LOC: HO.LAB 11:15
PROVIDERS: PCP Internal Medicine; Referring Provider Nurse Practitioner Family; Visit Provider Internal Medicine Hypertension Specialist
DX: R80.9 Proteinuria, unspecified (principal)
CPT/HCPCS: 81001; 82570; 84156; 99202

== ENCOUNTER 2024-02-21 11:15 | Outpatient (AMB) | payer OTHER, SELFPAY ==
[2024-02-21 11:31] VITALS: BP 120/68; PULSE 71; O2SAT 88
--- NOTE | 2024-02-21 11:31 | HO.NEPHOV_ITS ---
Vital Signs 02/21/24 11:31 Height 5 ft 1 in BP 120/68 Blood Pressure Location Lt brachial Position Sitting Pulse 71 Pulse Source Pulse Oximeter Pulse Oximetry (%) 88 L Oxygen Delivery Method Room Air Intake Visit Reasons: Other abnormal findings in urine/ Conf Assembly Associate Required: No Accompanied by: Son Allergies sulfamethoxazole [From Bactrim] Allergy (Verified 02/21/24 11:35) Rash trimethoprim [From Bactrim] Allergy (Verified 02/21/24 11:35) Rash Medication List - Last Reconciled 02/21/24 by Gallito Pearce MD [adult pullups As directed] albuterol sulfate 2.5 mg (3 mL) inhalation Q6H PRN albuterol sulfate 90 mcg/actuation 2 puffs inhalation Q4-6H PRN baclofen 10 mg PO QID cholecalciferol (vitamin D3) 50 mcg PO DAILY [commode As directed] commode (bedside commode) As directed fluticasone propionate 50 mcg/actuation (Flonase Allergy Relief) 1 spray intranasal DAILY fluticasone propionate 220 mcg/actuation 2 puffs inhalation BID furosemide 40 mg PO DAILY hydrocortisone 1% 1 appl topical BID lidocaine HCl 2% (Lidocaine Viscous) 1 appl mucous membrane Q4H lisinopril 30 mg PO DAILY loratadine 10 mg PO DAILY menthol-zinc oxide 0.44-20.6 % (Calmoseptine) 1 appl topical QID PRN miconazole nitrate 2% 1 appl topical BID mirabegron ER (Myrbetriq) 25 mg PO DAILY 90 days miscellaneous medical supply 1 ea miscellaneous DAILY miscellaneous medical supply 1 ea miscellaneous .4xday miscellaneous medical supply 1 ea miscellaneous .4xday miscellaneous medical supply 1 ea miscellaneous DAILY naproxen 500 mg PO BEDTIME nebulizers As directed polyethylene glycol 3350 (Miralax) 17 grams PO DAILY PRN pramoxine 1% (Proctofoam) 1 appl [place] TID pregabalin 100 mg PO TID 30 days simvastatin 40 mg PO BEDTIME HPI Comments Details: Jasper is a 73 woman with a history of hypertension who was found to have minimal proteinuria. She has been referred for evaluation of proteinuria. She has paraparesis she is wheelchair-bound. Accompanied by her son. She is on lisinopril 30 mg a day. Overall blood pressure has been well controlled. According to her son. She has no polyuria polydipsia. No nausea or vomiting. No diarrhea constipation. [facility] Medical History Hemorrhoids with complication Paraplegia Encounter to establish care History of shingles Cellulitis Asthma Surgical History History of cataract surgery History of partial hysterectomy Status post right foot surgery Family History Mother Heart failure Father Heart attack Other Mental health disorder Substance use disorder Social History Housing: Apartment Alcohol intake: current Alcohol intake frequency: holidays/special occasions only Patient Tobacco Use Status: Never used Tobacco e-Cigarette/Vaping Use: Never Used Second Hand Smoke Exposure: No service: No Current occupational status: disabled Cognitive needs: Yes (wheelchair) Hearing needs: No Vision needs: Yes Physical Exam Vital Signs: Last Vital Signs Pulse 71 02/21/24 11:31 BP 120/68 02/21/24 11:31 Pulse Ox 88 L 02/21/24 11:31 Oxygen Delivery Method Room Air 02/21/24 11:31 Elderly woman in a wheelchair she is comfortable. Obese Neck supple no JVD Lungs clear Heart S1-S2 heard no gallop Abdomen soft nontender. Extremities with trace edema in the feet. Results Reviewed Nephrology Results: Hgb 13.8 g/dl (12.0-16.0) 01/24/24 WBC 6.6 X10*3/uL (4.8-10.8) 01/24/24 Plt Count 236 X10*3/uL (160-400) 01/24/24 Sodium 141 mmol/L (135-145) 01/24/24 Potassium 4.1 mmol/L (3.3-5.1) 01/24/24 Chloride 103 mmol/L (96-108) 01/24/24 Carbon Dioxide 27 mmol/L (22-29) 01/24/24 BUN 10 mg/dL (9-16) 01/24/24 Creatinine 0.68 mg/dL (0.5-1.4) 01/24/24 Calcium 10.0 mg/dL (8.4-10.2) 01/24/24 Urine Protein Negative mg/dL (Neg-Trace) 02/21/24 Urine Creatinine Pending 02/21/24 Assessment & Plan Assessment & Plan (1) Proteinuria: Code(s): R80.9 - Proteinuria, unspecified Category: Medical Plan Rita is a 73-year-old woman with a history of hypertension with minimal proteinuria. She had a recent UTI and urinalysis was performed around the time. False positivity needs to be ruled out. I will recheck the urine for protein creatinine ratio again. No monoclonal proteins were detected. Blood pressure is well controlled Continue JUAN inhibitor if to lower the proteinuria. At present blood pressure well controlled. Further workup will be based on the outcome of the above investigations no changes were made Encouraged her to stand low-sodium diet. Orders: Orders Total Protein Urine Random Today R80.9 - Proteinuria, unspecified Creatinine Urine Today R80.9 - Proteinuria, unspecified UA and rflx microscopic Today R80.9 - Proteinuria, unspecified Coding Level of Care Code New Pt Level 4 (25494) Diagnoses Proteinuria R80.9
== END 2024-02-21 11:57 | disposition home or self-care (01) ==
PROVIDERS: PCP Internal Medicine; Referring Provider Nurse Practitioner Family; Visit Provider Internal Medicine Hypertension Specialist
DX: R80.9 Proteinuria, unspecified (principal)
CPT/HCPCS: 99204

== ENCOUNTER 2024-02-28 08:43 | Outpatient (REF) | payer OTHER, SELFPAY ==
[2024-02-29 09:53] LABS: Bacterial Vaginosis PCR NEGATIVE (Negative); Candida Group PCR NOT DETECTED (Not Detect); Candida glab krusei PCR NOT DETECTED (Not Detect); Trichomonas vaginalis PCR NOT DETECTED (Not Detect)
== END 2024-02-28 08:44 | disposition home or self-care (01) ==
LOC: HO.LAB 08:43
PROVIDERS: PCP Internal Medicine; Visit Provider Obstetrics & Gynecology
DX: B37.31 Acute candidiasis of vulva and vagina (principal); B37.2 Candidiasis of skin and nail
CPT/HCPCS: 0352U; 99202

== ENCOUNTER 2024-02-28 08:43 | Outpatient (AMB) | payer OTHER, SELFPAY ==
[2024-02-28 09:30] VITALS: BP 128/82
--- NOTE | 2024-02-28 09:30 | A.OFFVIS_ITS ---
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 Vuluovaginitis Supervisor Fish Bait Processing Required: Yes Supervisor Fish Bait Processing Language: Manager Behavioral Services: Supervisor Fish Bait Processing Present (in person) Supervisor Fish Bait Processing Name: Indira SALAZAR Information Interpreted: non-clinical & clinical Formula Room Worker: Formula Room Worker Present (Indira SALAZAR) Accompanied by: Son Allergies sulfamethoxazole [From Bactrim] Allergy (Verified 02/28/24 09:31) Rash trimethoprim [From Bactrim] Allergy (Verified 02/28/24 09:31) Rash Post menopausal: Yes HPI Comments Details: Presenting complaining of vulvovaginal and groin itching. Patient wears a diaper for urine incontinence [facility] Medical History Hemorrhoids with complication Paraplegia Encounter to establish care History of shingles Cellulitis Asthma Surgical History History of cataract surgery History of partial hysterectomy Status post right foot surgery Family History Mother Heart failure Father Heart attack Other Mental health disorder Substance use disorder Social History Housing: Apartment Alcohol intake: current Alcohol intake frequency: holidays/special occasions only Patient Tobacco Use Status: Never used Tobacco e-Cigarette/Vaping Use: Never Used Second Hand Smoke Exposure: No service: No Current occupational status: disabled Cognitive needs: Yes (wheelchair) Hearing needs: No Vision needs: Yes Review of Systems Const All systems reviewed & are unremarkable except as noted in HPI and below Physical Exam Vital Signs: Last Vital Signs BP 128/82 02/28/24 09:30 General: Yes no CVA tenderness External Female Exam: normal appearance of the urethra, erythema and other (Bilateral groin and vulvovaginal erythema) Speculum Exam - Vagina: normal appearance of the vagina, normal palpation, no lesions and no masses Speculum Exam - Cervix: normal appearance of the cervix, normal palpation, no lesions, no masses and nontender Bimanual exam- vagina & uterus: normal bimanual exam, normal palpation, uterine size normal, normal palpation, uterine shape normal, No Cervical tenderness present and non-tender Bimanual Exam- Adnexa, other: normal adnexae Back/Spine/Pelvis Back: no CVA tenderness Assessment & Plan Assessment & Plan (1) Candidiasis of vulva and vagina: Code(s): B37.31 - Acute candidiasis of vulva and vagina Category: Medical Plan: Terazol 0.8% q.h.s. for 3 days was sent to the patient's pharmacy. The patient was instructed to call if symptoms don't improve in 48 hours. (2) Skin candidiasis: Code(s): B37.2 - Candidiasis of skin and nail Category: Medical Plan: The patient was instructed to keep the area dry, use hair blower after showering, use baby powder without Talc and Desitin cream in addition to applying lotrisone cream BID x5 days Medications: New terconazole 0.8% 1 appful vaginal BEDTIME 3 days 20 grams 0RF clotrimazole-betamethasone 1-0.05 % 1 appl topical BID 5 days 45 grams 0RF Coding Level of Care Code New Pt Level 3 (65965) Diagnoses Candidiasis of vulva and vagina B37.31 Skin candidiasis B37.2
== END 2024-02-28 10:19 | disposition home or self-care (01) ==
PROVIDERS: PCP Internal Medicine; Visit Provider Obstetrics & Gynecology
DX: B37.31 Acute candidiasis of vulva and vagina (principal); B37.2 Candidiasis of skin and nail
CPT/HCPCS: 99203

== ENCOUNTER 2024-03-03 10:09 | Outpatient (REF) | payer OTHER, SELFPAY ==
[2024-03-03 10:28] LABS: Appearance Urine Cloudy; Color Urine Yellow; Glucose Urine UA Negative (Negative); Leukocyte Esterase Urine Large (3+) (Negative); Nitrite Urine Negative (Negative); PH 5.5 (5.0-9.0); UMIC TRIGGER UA YES; Urine Blood Trace (Negative); Urine Ketones Negative (Negative); Urine Protein Negative (Neg-Trace)
[2024-03-03 10:35] LABS: Bacteria Urine 4+ (None Seen); Hyaline Casts Urine 0-2 /LPF (0-2); RBC Urine 0-2 /HPF (0-2); Squamous Epithelial Cell Urine 0-2 /HPF (0-2); WBC Urine >50 /HPF (0-5)
== END 2024-03-03 10:10 | disposition home or self-care (01) ==
LOC: HO.LNP 10:09
PROVIDERS: Visit Provider Internal Medicine Hypertension Specialist
DX: R30.0 Dysuria (principal)
CPT/HCPCS: 81001

== ENCOUNTER 2024-04-14 08:03 | Outpatient (AMB) | payer OTHER, SELFPAY ==
[2024-04-14 08:11] VITALS: BP 120/68; PULSE 77; O2SAT 96
--- NOTE | 2024-04-14 08:11 | A.OFFPC_ITS ---
Vital Signs 04/14/24 08:11 Height 5 ft 1 in BMI Reason not done Patient refused/unable BP 120/68 Blood Pressure Location Lt brachial Position Sitting Pulse 77 Pulse Source Pulse Oximeter Pulse Oximetry (%) 96 Oxygen Delivery Method Room Air Intake Visit Reasons: Annual PE Allergies sulfamethoxazole [From Bactrim] Allergy (Verified 02/28/24 09:31) Rash trimethoprim [From Bactrim] Allergy (Verified 02/28/24 09:31) Rash Tobacco use date assessed: 01/31/24 Fall risk assessment: No Falls in past year Last assessed Fall Risk: 04/14/24 Dental Screening Dental Screen Date: 04/14/24 Did you have a dental visit in the last 12 months?: No Did you have a dental problem in the last 6 months where you did not have access to dental care?: No Was dental information given to patient?: Patient has dentist HPI Annual PE HPI Details 74-year-old female who is Palauan-speaki ng paraplegic wheelchair-bound with son at bedside who is her RELIABILITY TECHNICIAN presenting for annual physical exam. Patient is cared for by her son and her daughter. He reported that she will need a new prescription for commode as they have never received it. He reports the prescription will need to be sent to [facility]. He reports they do not need any refills at this time. Patient is wheelchair-bound. Is a 1 person assist. She is able to bathe her upper half of her body along with dressed for upper half of her body. She needs assistance bathing the lower aspect of her body and placing her pants on. She wears a brief although is not incontinence. She is able to use the bathroom with the 1 person transfer. She occasionally can clean herself after she uses the bathroom. They are interested in a flu vaccine today. Patient had her mammogram in 2022. Patient had a Cologuard on 01/12/2024. [facility] Medical History Hemorrhoids with complication Paraplegia Encounter to establish care History of shingles Cellulitis Asthma Surgical History History of cataract surgery History of partial hysterectomy Status post right foot surgery Family History Mother Heart failure Father Heart attack Other Mental health disorder Substance use disorder Social History Housing: Apartment Alcohol intake: current Alcohol intake frequency: holidays/special occasions only Patient Tobacco Use Status: Never used Tobacco e-Cigarette/Vaping Use: Never Used Second Hand Smoke Exposure: No service: No Current occupational status: disabled Cognitive needs: Yes (wheelchair) Hearing needs: No Vision needs: Yes Questionnaire PHQ-9 Over the last 2 weeks, how often have you been bothered by any of the following problems? 1. Little interest or pleasure in doing things: several days 2. Feeling down, depressed, or hopeless: several days 3. Trouble falling or staying asleep, or sleeping too much: not at all 4. Feeling tired or having little energy: not at all 5. Poor appetite or overeating: not at all 6. Feeling bad about yourself - or that you are a failure or have let yourself or your family down: several days 7. Trouble concentrating on things, such as reading the newspaper or watching television: not at all 8. Moving or speaking so slowly that other people could have noticed. Or the opposite - being so fidgety or restless that you have been moving around a lot more than usual: not at all 9. Thoughts that you would be better off or of hurting yourself in some way: not at all Total score: 3 Depression Screening Interpretation: Negative Depression Screening Done: Yes 22167 - PHQ-9 Billing: Yes Source: Developed by Drs. Vern Canchola, Anita Peters, Hardik Russo and colleagues, with an educational jeremie from [employer] Thrive Questionnaire Date Thrive assessed: 09/26/23 I am a: Patient What is your living situation today?: I have a steady place to live Within the past 12 months, did the food you bought not last and you didn't have the money to get more?: I choose not to answer this question Within the past 12 months, did you worry whether your food would run out before you got money to buy more?: I choose not to answer this question Do you have trouble paying for medicines?: No Do you have trouble getting transportation to medical appointments?: No Do you have trouble paying your heating and electricity bill?: No Do you have trouble taking care of your child, family member or friend?: I choose not to answer this question Do you have trouble with day-to-day activities such as bathing, preparing meals, shopping, managing finances, etc.?: Yes Are you currently unemployed and looking for a job?: I choose not to answer this question Are you interested in more education?: I choose not to answer this question Please select the resources that you would like help with: None Currently or been in a relationship where the following occur: I choose not to answer THRIVE Score: 0 AUDIT C Alcohol Use Questionnaire (AUDIT-C) 1. How often do you have a drink containing alcohol?: Never 3. How often do you have six or more drinks on one occasion?: Never Total Score: 0 LAMIN-7 AMB Questionnaire LAMIN-7 Date LAMIN - 7 assessed: 04/14/24 Feeling nervous, anxious, or on edge: 0 = Not at all Not being able to stop or control worryin = Several days Worrying too much about different things: 1 = Several days Trouble relaxin = Not at all Being so restless that it is hard to sit still: 0 = Not at all Becoming easily annoyed or irritable: 0 = Not at all Feeling afraid as if something awful might happen: 0 = Not at all Total LAMIN-7 score (0-4 normal; 5-9 mild; 10-14 moderate; 15-21 severe): 2 Source: Developed by Drs. Vern Canchola, Anita Peters, Hardik Russo and colleagues, with an educational jeremie from [employer] LAMIN-7 Assessment Billing LAMIN-7 Assessment Tool: LAMIN-7 Assessment 12994 Review of Systems Const All systems reviewed & are unremarkable except as noted in HPI and below Physical exam (Primary Care) Vital Signs: Last Vital Signs Pulse 77 04/14/24 08:11 BP 120/68 04/14/24 08:11 Pulse Ox 96 04/14/24 08:11 Oxygen Delivery Method Room Air 04/14/24 08:11 Appearance: Alert. Oriented X3. No acute distress. Palauan Speaking. Son at bedside. Head: Normal external exam. Normocephalic. Atraumatic.? Eyes: PERRLA. EOMI. Conjunctiva and sclera normal. Eyelids normal. ? ENT: Moist mucous membranes. Neck: Normal inspection. Neck supple. FROM. No adenopathy. Thyroid Normal. No neck mass noted. CVS: Normal heart rate and rhythm. Heart sound normal. No murmurs noted. Pulses normal throughout. Respiratory: No respiratory distress. Painless inspiration. Breath sounds normal. No wheezes/rales/rhonchi noted. Chest nontender. ? No accessory muscle usage noted or decreased air movement noted. Abdomen: Soft and nontender No distention noted.? Skin: Skin warm and dry.? Normal skin color.? Normal skin turgor. No rashes noted. Extremities: No lower extremity edema. ? Extremities nontender. Neuro: Oriented X 3.? Wheelchair bound. Moving upper arms. Tobacco/Smoking Status: Tobacco use Status Tobacco use date assessed 01/31/24 04/14/24 08:17 Patient Tobacco Use Status Never used Tobacco 04/14/24 08:17 e-Cigarette/Vaping Use Never Used 04/14/24 08:17 PHQ-9: PHQ-9 Score PHQ-9: Total score 3 04/14/24 08:32 Depression Screening Interpretation: Negative Thrive Assessment: Date of Thrive Assessment Date Thrive assessed 09/26/23 04/14/24 08:17 Currently or been in a relationship where the following occur: I choose not to answer Office Procedures Flu Questionnaire Does the patient have a severe egg allergy?: No Does the patient have severe life threatening allergies?: No Does the patient have a fever or illness today?: No Has the patient ever had Guillain-Mccarley Syndrome?: No Has the patient ever had any past reaction to a flu shot?: No Immunizations Fluarix Triv [id number] (PF) 45 mcg (15 mcg x 3)/0.5 mL IM syringe Performing Provider: Mil Gilman MD Performing Location: [facility] [place] [facility] Administered by: MARIE Villa on 04/14/24 08:35 Dose Route Admin Location Dispensed Lot Number Expiration Date [facility] Wellness Coordinator 0.5 mL IM Left Deltoid 0.5 mL [id number] 11/24/24 75827-640-41 [email or web address] VIS Given Date VIS Provided VIS Publication Date 04/14/24 Single Vaccine 20 Eligibility Eligibility Date Funding Source Not [facility] Eligible 04/14/24 Private Results Reviewed Results Reviewed: On 01/24/2024 patient had an A1c level 5.6. Patient had a mammogram 2022. Patient had Cologuard 01/12/2020. Coding Level of Care Code Est Pt Prev Care >65y(43487) Diagnoses Adult general medical exam Z00.00 Anxiety F41.9 Hypertension I10 GERD (gastroesophageal reflux disease) K21.9 Osteoarthritis of both knees, unspecified osteoarthritis type M17.0 Osteoarthritis type: unspecified Paraplegia G82.20 Peripheral polyneuropathy G62.9 Additional Codes LAMIN-7 Assessment Billing - LAMIN-7 Assessment Tool: LAMIN-7 Assessment 23545 ([id number]) PHQ-9 - 88078 - PHQ-9 Billing: Yes ([id number]) Assessment & Plan Assessment & Plan (1) Adult general medical exam: Code(s): Z00.00 - Encounter for general adult medical examination without abnormal findings Category: Medical Plan: Patient has a normal physical exam. Patient will have new prescription for commode sent. Patient will receive influenza vaccine today. Patient to return in 3-6 months for re-evaluation. (2) Anxiety: Code(s): F41.9 - Anxiety disorder, unspecified Category: Medical Plan: Patient denied any increased anxiety. Taking medications as prescribed. (3) Hypertension: Code(s): I10 - Essential (primary) hypertension Category: Medical Plan: Patient to continue taking medications as prescribed which include lisinopril and Lasix. (4) GERD (gastroesophageal reflux disease): Code(s): K21.9 - Gastro-esophageal reflux disease without esophagitis Category: Medical Plan: Patient reports GERD is controlled. Denies any changes in diet, nausea or vomiting. Patient to continue taking medications as prescribed. (5) Osteoarthritis of knees, bilateral: Code(s): M17.0 - Bilateral primary osteoarthritis of knee Category: Medical Qualifiers: Osteoarthritis type: unspecified Qualified Code(s): M17.0 - Bilateral primary osteoarthritis of knee Plan: Patient denies any worsening pain. Patient to continue taking medications as prescribed. 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 Son at bedside. Patient has RELIABILITY TECHNICIAN which is the patient's son. Daughter also has patient. Patient 1 person assist for transfer. Utilizes brief and a commode. (7) Peripheral polyneuropathy: Comment: BLE chronic, distal, symmetric, primarily axonal and motor, polyneuropathy Code(s): G62.9 - Polyneuropathy, unspecified Category: Medical Plan: As above
== END 2024-04-14 08:39 | disposition home or self-care (01) ==
PROVIDERS: PCP Internal Medicine; Visit Provider Internal Medicine
DX: Z00.00 Encounter for general adult medical examination without abnormal findings (principal); F41.9 Anxiety disorder, unspecified; I10 Essential (primary) hypertension; G82.20 Paraplegia, unspecified; K21.9 Gastro-esophageal reflux disease without esophagitis; M17.0 Bilateral primary osteoarthritis of knee; G62.9 Polyneuropathy, unspecified

== ENCOUNTER → 2024-04-14 08:03 | Outpatient (BNVA) | payer OTHER, SELFPAY | PROVIDERS: PCP Internal Medicine; Visit Provider Internal Medicine | DX: Z00.00 Encounter for general adult medical examination without abnormal findings (principal); Z23 Encounter for immunization; F41.9 Anxiety disorder, unspecified; I10 Essential (primary) hypertension; K21.9 Gastro-esophageal reflux disease without esophagitis; M17.0 Bilateral primary osteoarthritis of knee; G82.20 Paraplegia, unspecified; G62.9 Polyneuropathy, unspecified | CPT/HCPCS: 90471; 90656; 96127; 99397 ==

== ENCOUNTER 2024-06-20 09:18 | Outpatient (AMB) | payer OTHER, SELFPAY ==
--- NOTE | 2024-06-20 09:30 | MHC.OFFVIS ---
Vital Signs 06/20/24 09:46 Height 5 ft 1 in Intake Visit Reasons: Inj-B/L knee OA, last inj 02/19/24 Intake Note: Rita is a 74 year old female who presents today in a wheelchair for a follow up of bilateral knee OA, last injections 02/19/24. Patient reports her last injection gave her 3 months of relief and would like to repeat. Allergies sulfamethoxazole [From Bactrim] Allergy (Verified 06/20/24 09:45) Rash trimethoprim [From Bactrim] Allergy (Verified 06/20/24 09:45) Rash HPI HPI Inj-B/L knee OA, last inj 02/19/24: Details: Patient presents to the office today for repeat cortisone injections in bilateral knees. Last injection was 02/19/2024. [facility] Medical History Hemorrhoids with complication Paraplegia Encounter to establish care History of shingles Cellulitis Asthma Surgical History History of cataract surgery History of partial hysterectomy Status post right foot surgery Family History Mother Heart failure Father Heart attack Other Mental health disorder Substance use disorder Social History Housing: Apartment Alcohol intake: current Alcohol intake frequency: holidays/special occasions only Patient Tobacco Use Status: Never used Tobacco e-Cigarette/Vaping Use: Never Used Second Hand Smoke Exposure: No service: No Current occupational status: disabled Cognitive needs: Yes (wheelchair) Hearing needs: No Vision needs: Yes Review of Systems Const All systems reviewed & are unremarkable except as noted in HPI and below Physical Exam Const General: cooperative, healthy appearing and no acute distress Resp Effort & Inspection: normal respiratory effort and able to speak in complete sentences Cardio Rate: regular rate Peripheral pulses: Peripheral pulses 2+ throughout Skin Lesions: no lesions Rashes: no rashes Extrem Other: Bilateral knees: Normal to inspection. No ecchymosis, erythema, or joint effusion. Extension to about 40 degrees. Flexion to 80 degrees. Global tenderness to palpation. Unable to assess Radha's or anterior drawer. NVI. Office Procedures AMB Joint Injection/Aspiration Joint Injection/Aspiration Primary Site: right knee Secondary Site: left knee Prep: site was prepped using aseptic technique, ethochloride spray was applied and injection warnings given Injected: 80 mg of, DepoMedrol, with 8 mL of (2% plain lidocaine) and in the joint Approach Used: anterolateral Procedure: The patient tolerated the procedure well, but had some pain with the injection and there was some relief with the local anesthesia Coding - Large joint Procedure code (CPT) selection complete Assessment & Plan Assessment & Plan (1) Osteoarthritis of knees, bilateral: Code(s): M17.0 - Bilateral primary osteoarthritis of knee Category: Medical Qualifiers: Osteoarthritis type: unspecified Qualified Code(s): M17.0 - Bilateral primary osteoarthritis of knee Plan The patient was offered a cortisone injection in bilateral knees with 80 mg of DepoMedrol. The patient was explained the risks, benefits, and alternatives to receiving this injection. After receiving consent for the injection, the patient had the procedure done while in the office today. The patient tolerated the procedure well with no complications. Follow-up will be p.r.n., or sooner if needed Coding Level of Care Code Est Pt Level 3 (66303) Diagnoses Osteoarthritis of both knees, unspecified osteoarthritis type M17.0 Osteoarthritis type: unspecified CPT Codes Coding - Large joint: 11103 - Large joint ([id number])
== END 2024-06-20 09:58 | disposition home or self-care (01) ==
PROVIDERS: PCP Internal Medicine; Visit Provider Physician Assistant
DX: M17.0 Bilateral primary osteoarthritis of knee (principal)
CPT/HCPCS: 20610; 99213

== ENCOUNTER → 2024-06-20 09:18 | Outpatient (BNVA) | payer OTHER, SELFPAY | PROVIDERS: PCP Internal Medicine; Visit Provider Physician Assistant | DX: M17.0 Bilateral primary osteoarthritis of knee (principal) | CPT/HCPCS: 20610; 99212; J1010; J2003 ==

== ENCOUNTER 2024-07-23 09:58 | Outpatient (AMB) | payer OTHER, SELFPAY ==
--- NOTE | 2024-07-23 10:27 | A.OFFVIS_ITS ---
Vital Signs 07/23/24 10:28 Height 5 ft 1 in BP 120/70 Blood Pressure Location Lt brachial Position Sitting Pulse 77 Pulse Source Pulse Oximeter Pulse Oximetry (%) 95 Oxygen Delivery Method Room Air Comment Unable to obtain weight Intake Visit Reasons: Follow up Intake Note: Patient presents follow up paraplegia labs in chart patient declined Genetics referral Operational Meteorologist Services: Operational Meteorologist Offered & Declined Allergies sulfamethoxazole [From Bactrim] Allergy (Verified 07/23/24 10:30) Rash trimethoprim [From Bactrim] Allergy (Verified 07/23/24 10:30) Rash HPI Comments Details: 73-yr-old female presents for 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 Pt is accompanied by her son. Patient and son report that patient is overall stable. Feel that increase pregabalin has been helpful for her lower extremity pain. She continues to have bilateral lower extremity weakness, numbness, leg spasms, however they do not feel that this has progressed. Family continues to help patient with all mobility, again they do not feel that a transfer device would be helpful due to patient having urinary urgency. They are not currently is interested in being referred back to PT or OT. They have not yet had genetics counseling appointment. Labs from late December 2023 indicated ESR of 34 and elevated CRP greater than 20. ESR and CRP suggested inflammation. CBC, CMP, and A1c were normal. Vitamin B12 was low normal at 402 pg/mL, ferritin was 87. Protein to creatinine ratio showed proteinuria at 182, possibly related to UTIs. Nephrology suspected transient proteinuria from UTIs. Recurrent UTIs have persisted. UA on follow-up showed no proteinuria. Ferritin level under 100 may contribute to restlessness; patient declined iron supplementation. Follow-up HPI 01/10/2024: BLE EMG/NCS showed BLE chronic, symmetric, axonal and motor neuropathy, c oncerning for a hereditary neuropathy. Pt's has strong family h/o of similar s/s, especially in the females. Her dtr has started to develop weakness. She continues to have BLE weakness, numbness, leg spasms a/w jolts of pain. She denies any numbness/weakness/paresthesias in her arms. She spends most of her day in a recliner. Her son assists her with all mobility- sometimes pt's legs give out so cannot self-transfer. They had tried to use a transfer lift- but was not helpful as pt can have urinary urgency. States Baclofen 10mg qid (between ~6am and 7pm- the hours she is OOB and Pregagablin 100mg bid help some. Tizanidine previously helped a bit better than baclofen- but caused sleepiness and was told she could not take both together. She did not have b-12 level checked yet. BLE EMG/NCS: IMPRESSION: 1. This is an abnormal study. 2. 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 Consider genetic testing of patient and daughter. [facility] Medical History Hemorrhoids with complication Paraplegia Encounter to establish care History of shingles Cellulitis Asthma Surgical History History of cataract surgery History of partial hysterectomy Status post right foot surgery Family History Mother Heart failure Father Heart attack Other Mental health disorder Substance use disorder Social History Housing: Apartment Alcohol intake: current Alcohol intake frequency: holidays/special occasions only Patient Tobacco Use Status: Never used Tobacco e-Cigarette/Vaping Use: Never Used Second Hand Smoke Exposure: No service: No Current occupational status: disabled Cognitive needs: Yes (wheelchair) Hearing needs: No Vision needs: Yes Physical Exam Vital Signs: Last Vital Signs Pulse 77 07/23/24 10:28 BP 120/70 07/23/24 10:28 Pulse Ox 95 07/23/24 10:28 Oxygen Delivery Method Room Air 07/23/24 10:28 Const General: cooperative and no acute distress Orientation/consciousness: patient oriented x3 HEENT Head: Yes normocephalic Resp Effort & Inspection: normal respiratory effort and able to speak in complete sentences Neuro Other: BLE weakness- more so on left. BLE decreased light touch sensation. Absent vibration sensation. General: patient oriented x3 and CN's II-XI intact bilaterally Cognition (Neuro): normal cognition Deep tendon reflexes (DTR's): Right patellar reflex intensity grade: 3+, Left patellar reflex intensity grade: 2+, Right ankle reflex intensity grade: 3+ and Left ankle reflex intensity grade: 2+ Psych Appearance: grossly normal Mental Status: mental status grossly normal Affect: normal affect Attitude: cooperative Thought process: Normal thought process present Assessment & Plan Assessment & Plan (1) Peripheral polyneuropathy: Comment: BLE chronic, distal, symmetric, primarily axonal and motor, polyneuropathy Code(s): G62.9 - Polyneuropathy, unspecified Category: Medical Plan: As above (2) Muscle spasms of lower extremity: Code(s): M62.838 - Other muscle spasm Category: Medical (3) 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 Son at bedside. Patient has TALENT ENGINEER which is the patient's son. Daughter also has spastic paraparesis. Patient 1 person assist for transfer. Utilizes brief and a commode. Plan Previous BLE EMG/NCS: chronic, distal, symmetric, primarily axonal and motor, polyneuropathy Reviewed labs- no findings to fully account for patient's polyneuropathy. We will follow-up on patient/family desire for genetic testing in follow-up- if they decide to proceed with this, pt's dtr should attend consult appt as well. Again offered home OT to help optimize transfer technique etc, however pt and son feel they are doing well and that pt's insurance does send a PT to the home twice a year to assess. Continue Baclofen 10mg qid. Continue Pregabalin 100mg tid- for leg spasms and associated pains. f/u upon review of above and in 6 months or sooner prn. Coding Level of Care Code Est Pt Level 4 (25867) Diagnoses Peripheral polyneuropathy G62.9 Muscle spasms of lower extremity M62.838 Paraplegia G82.20
[2024-07-23 10:28] VITALS: BP 120/70; PULSE 77; O2SAT 95
--- OUTSIDE RECORDS SUMMARY | 2024-07-23 11:55 | XMS_ITS | Data Portability ---
Author Organization [employer] Address [address] [place] [id number] Care Team Providers Care Project Developer Name Role Phone HIM CCA OTHER Assessment Encounter Date Assessment Date Assessment LastModified by Organization Details LastModified Time 12/06/2023 12/06/2023 I have reviewed and agree with the assessment and plan as documented by the linoleum floor installer. I provided real time medical direction for this encounter and was immediately available to provide additional phone based assistance as needed. History as noted by linoleum floor installer. Pt reports she recently had UTI symptoms with dysuria and frequency and was seen by her primary care 2 days ago and diagnosed with a UTI and started on Bactrim. She reports she took the 1st dose of Bactrim last night and the 2nd dose this AM. Several hours after this AM's dose, pt reports she developed a slightly raised red rash on her legs, arms and trunk. No lesions on her lips, mouth or throat. She reports her throat felt scratchy earlier today, but this feeling resolved after she took a dose of benadryl 25mg po. The rash is non pruritic. Pt denies any throat tightness, cough or SOB. No abdominal pain or vomiting. No fevers or chills. Pt is not aware of any other new exposures other than the Bactrim. Of note, pt still reports UTI symptoms. On exam, pt appears comfortable, no distress. Speech is normal. No stridor. Vitals normal other than mild tachycardia at 110. Skin with scattered slightly raised, red rash involving extremities, and trunk. Lips, mouth, tongue and throat appear normal. Lungs clear, no wheezing. Impression: Pt with what appears to be an acute allergic reaction to Bactrim that she started taking last night for UTI, diagnosed by her PCP 2 days ago, with diffuse slightly raised rash. No involvement of her lips, mouth or tongue, although the pt reports that her throat felt scratchy earlier today, but this resolved after taking a dose of benadryl, 25mg po. The rash is non pruritic. Photo of rash reviewed. It dose not appear c/w urticaria. Pt has normal airway and lung exam at this time and appears quite comfortable. Pt and family told that it appears that she is having an allergic rxn to the Bactrim. SHe is told to stop taking the medication and that she needs to inform providers moving forward that she is allergic to Bactrim/sulfa drugs. Pt is medicated now with prednisone 40mg po and I prescribe prednisone 40mg qd x4 more days to start tomorrow. Pt and family told that she should continue the benadryl 3x daily until the rash resolves. Since the pt continues to have UTI symptoms, I also prescribe cefpodoxime 100mg bid x5 days that she is told to start taking this evening. They are also instructed to call her primary care either today or tomorrow to discuss the rash and the allergic reaction and to have them check the results of her urine culture from 2 days ago. Primary care team: Please call and follow up with the pt and her family either later today or tomorrow to discuss her allergic rash to the Bactrim and to ensure that it is improving with the prednisone and benadryl. Please check the results of pt's urine culture to ensure that the cefpodoxime prescribed today is appropriate for her UTI as well. Pt and family told that they need to seek medical attention in the ED immediately if she develops any worsening rash despite the medications, or if she develops any throat tightness or swelling or any cough or difficulty breathing. btils Not available 12/06/2023 14:31:35 Plan of Treatment Reminders Order Date Submit Date Provider Last Modified By Organization Details Last Modified Time Details Appointments None recorded. Lab None recorded. Referral None recorded. Procedures None recorded. Surgeries None recorded. Imaging None recorded. Medication Orders cefpodoxime 100 mg tablet 2023 024 [facility] #[id number], [address], [place], [id number], 14:11:05 prednisone 20 mg tablet 2023 024 [facility] #[id number], [address], [place], [id number], 4 14:11:04 prednisone 20 mg tablet 2023 024 [facility] #[id number], [address], [place], [id number], 4 14:10:49 ceftriaxone 1 gram solution for injection [address] [facility][id number], [address], [place], [id number], 4 11:27:40 amoxicillin 875 mg-potassiu m clavulanate 125 mg tablet [address] [facility]18703, [address], [place], [id number], 4 11:28:27 erythromyci n 5 mg/gram (0.5 %) eye ointment 2023 024 [facility] #21184, [address], [place], [id number], 4 12:37:08 dexamethaso ne 6 mg tablet 2023 024 [facility] #06117, [address], [place], [id number], 4 14:24:52 Patient TargetsNo targets recorded. Patient InstructionsNo instructions recorded. Reason for Referral None Reported. Medical Equipment None Reported. Allergies Allergen ID Allergen Name Allergen Category Reaction Reaction Severity Criticality Documentation Date Start Date Code Code System Note Provider Name and Address Organization Details Recorded Time 7896 Bactrim medicatio n Not available Not available Not available 03/25/2024 07314 9 RxNorm Not Available [facility] 4 03:40:30 Medications Name Sig Start Date Stop Date Status Note LastModified by Organization Details LastModified Time amoxicillin 500 mg capsule TAKE 1 CAPSULE BY MOUTH THREE TIMES DAILY active Not Available Not Available Not Available furosemide 40 mg tablet TAKE 1 TABLET BY MOUTH DAILY active Not Available Not Available Not Available albuterol sulfate 2.5 mg/3 mL (0.083 %) solution for nebulization USE 1 VIAL VIA NEBULIZER EVERY 6 HOURS NEEDED FOR SHORTNESS OF BREATH OR WHEEZING active Not Available Not Available Not Available cefpodoxime 100 mg tablet TAKE 1 TABLET BY MOUTH EVERY 12 HOURS FOR 5 DAYS active Not Available Not Available N ot Available ibuprofen 800 mg tablet TAKE 1 TABLET BY MOUTH TWICE DAILY active Not Available Not Available No t Available Lidocaine Viscous 2 % mucosal solution APPLY 2.5ML TO AFFECTED MUCOSAL AREA EVERY 4 HOURS NEEDED FOR RECTAL PAIN active Not Available Not Available Not Available benzonatate 200 mg capsule TAKE 1 CAPSULE BY MOUTH THREE TIMES DAILY NEEDED FOR COUGH active Not Available Not Available No t Available prednisone 20 mg tablet TAKE 2 TABLETS BY MOUTH EVERY DAY FOR 4 DAYS active Not Available Not Available No t Available dexamethason e 6 mg tablet TAKE 1 TABLET BY MOUTH EVERY DAY FOR 5 DAYS active Not Available Not Available No t Available sulfamethoxa zole 800 mg-trimethop rim 160 mg tablet TAKE 1 TABLET BY MOUTH TWICE DAILY FOR 5 DAYS active Not Available Not Available No t Available simvastatin 40 mg tablet TAKE 1 TABLET BY MOUTH AT BEDTIME active Not Available Not Available No t Available ketorolac 0.5 % eye drops active Not Available Not Available Not Available baclofen 10 mg tablet TAKE 1 TABLET BY MOUTH FOUR TIMES DAILY active Not Available Not Available Not Available erythromycin 5 mg/gram (0.5 %) eye ointment APPLY 1 CM RIBBON INTO THE LOWER CONJUNCTIVA L SAC(S) IN THE AFFECTED EYE(S) BY OPHTHALMIC ROUTE 3 TIMES PER DAY active Not Available Not Available No t Available lisinopril 30 mg tablet TAKE 1 TABLET BY MOUTH DAILY active Not Available Not Available Not Available sertraline 25 mg tablet TAKE 1 TABLET BY MOUTH DAILY active Not Available Not Available Not Available fluticasone propionate 220 mcg/actuatio n HFA aerosol inhaler INHALE 2 PUFFS BY MOUTH TWICE DAILY active Not Available Not Available No t Available cefuroxime axetil 500 mg tablet TAKE 1 TABLET BY MOUTH TWICE DAILY FOR 7 DAYS active Not Available Not Available No t Available albuterol sulfate HFA 90 mcg/actuatio n aerosol inhaler INHALE 2 PUFFS BY MOUTH EVERY 4 TO 6 HOURS NEEDED FOR SHORTNESS OF BREATH OR WHEEZING active Not Available Not Available Not Available fluticasone propionate 50 mcg/actuatio n nasal spray,suspen wendie ADMINISTER 1 SPRAY INTRANASALL Y INTO EACH NOSTRIL DAILY FOR ALLERGY SYMPTOMS. active Not Available Not Available No t Available loratadine 10 mg tablet TAKE 1 TABLET BY MOUTH DAILY active Not Available Not Available Not Available naproxen 500 mg tablet TAKE 1 TABLET BY MOUTH AT BEDTIME active Not Available Not Available No t Available amoxicillin 875 mg-potassium clavulanate 125 mg tablet TAKE 1 TABLET BY MOUTH EVERY 12 HOURS FOR 10 DAYS active Not Available Not Available Not Available nitrofuranto in monohydrate/ macrocrystal s 100 mg capsule TAKE 1 CAPSULE BY MOUTH EVERY 12 HOURS FOR 7 DAYS active Not Available Not Available N ot Available tizanidine 4 mg capsule TAKE 1 CAPSULE BY MOUTH AT BEDTIME NEEDED FOR MUSCLE SPASMS active Not Available Not Available No t Available pregabalin 100 mg capsule TAKE 1 CAPSULE BY MOUTH TWICE DAILY active Not Available Not Available No t Available cholecalcife rol (vitamin D3) 50 mcg (2,000 unit) capsule TAKE 1 CAPSULE BY MOUTH DAILY active Not Available Not Available Not Available Myrbetriq 25 mg tablet,exten ded release TAKE 1 TABLET BY MOUTH DAILY active Not Available Not Available Not Available Vitals Date Recorded Body temperature Heart rate Oxygen saturation Oxygen saturation in Arterial blood by Pulse oximetry Body weight Respiratory rate Systolic blood pressure Diastolic blood pressure Provider Name and Address Organization Details Last Updated DateTime 4 101 [degF] 90 /min 90 % 90 % 94401.5 2 g 20 /min 150 mm[Hg] 90 mm[Hg] Not Available [facility] 4 14:09:50 Date Recorded Oxygen saturation Oxygen saturation in Arterial blood by Pulse oximetry Respiratory rate Heart rate Body temperature Systolic blood pressure Diastolic blood pressure Provider Name and Address Organization Details Last Updated DateTime 4 97 % 97 % 16 /min 94 /min 98.9 [degF] 140 mm[Hg] 60 mm[Hg] Not Available [facility] 4 12:30:37 Date Recorded Heart rate Body height Body weight Body temperature Respiratory rate Oxygen saturation Oxygen saturation in Arterial blood by Pulse oximetry Systolic blood pressure Diastolic blood pressure Provider Name and Address Organization Details Last Updated DateTime 4 80 /min 157.48 cm 22589.4 8 g 98.7 [degF] 16 /min 95 % 95 % 168 mm[Hg] 83 mm[Hg] Not Available [facility] 4 11:26:45 Date Recorded Oxygen saturation Oxygen saturation in Arterial blood by Pulse oximetry Body weight Body temperature Respiratory rate Heart rate Systolic blood pressure Diastolic blood pressure Provider Name and Address Organization Details Last Updated DateTime 4 98 % 98 % 87930.9 68 g 98.6 [degF] 16 /min 110 /min 120 mm[Hg] 70 mm[Hg] Not Available [facility] 4 13:57:54 Social History None recorded. Functional Status None recorded. Mental Status None recorded. Family History Nothing Reported. Medical History No medical history recorded. Gynecological HistoryNo gynecological history recorded. Obstetrics History GPAL:G 0 P 0 0 0 0 Past Encounters Encounter ID Performer Location Encounter Start Date Encounter Closed Date Diagnosis/Indication Diagnosis SNOMED-CT Code Diagnosis ICD10 Code Diagnosis Note [id number] Laura Jones MD [facility] [address] [place] [id number] 06/09/2023 14:09:48 06/11/2023 17:37:05 COVID-19 565134260 U07.1 Evaluation in the field was performed by my linoleum floor installer colleague, as noted above, I provided real-time direction and supervisio n for this visit. 73yo F with PMHx asthma, recurrent resp infections p/w cough and nasal congestion x 1 week a/w orthopnea and +LE edema. On linoleum floor installer assessment VS notable for T 101F, sat 90% RA, exam w/ +pitting edema b/l LE and diffuse wheezing and bibasilar rhonchi, increased WOB. Rapid COVID positive.E xtensive d/w pt and family that I strongly recommend hospitaliz ation given COVID w/ hypoxia and likely volume overload with need for imaging including CXR and TTE (though they deny hx CHF, on lasix 40 mg daily, b/l Cr unknown) however they adamantly refuse and demonstrat e capacity.W ill thus empiricall y tx for asthma exacerbati on iso COVID with steroids (prednison e given by linoleum floor installer, rx dexamethas one to pharmacy), out of window for Paxlovid, defer diuresis given not safe to do at home didi given limited data on b/l Cr, EF, etc. Reviewed risks of declining ED including worsening hypoxia and . We discussed the diagnostic uncertaint y of home visits and the risk associated with this. In this case, the patient and I felt this to be an acceptable and reasonable amount of risk given the benefit of avoiding an ED visit. We discussed the need to seek care urgently/e mergently in the setting of any new or worsening serious symptoms, shortness of breath, cough, chest pain, fever. [id number] Davon Moise MD [facility] [address] [place] [phone] 09/15/2023 12:21:54 09/16/2023 14:59:05 Bacterial conjunctivitis 171556829 H10.9 No red flag signs such as blurry vision or eye pain. Will treat with erythromyc in. Discussed red flag signs for which to seek higher level of care (eye pain, worsening discharge, blurry vision) [id number] Esdras Rodas MD [facility] [address] [place] [phone] 11/04/2023 11:26:29 11/07/2023 04:25:39 Infection of tooth 504390863 K04.7 As noted, we were called to see this patient regarding concerns of dental infection. Evaluation in the field was performed by my linoleum floor installer colleague, as noted above, I provided real-time direction and supervisio n for this visit. The evaluation revealed reassuring VS and striking facial erythema and edema c/w underlying infection involving the maxillary teeth. No f/c/CELAYA/vis ion changesNo prosthetic joints or valvesHas had this before, prev treated amox, it seems Impression :Moderatel y severe dental infection without e/o sirs/sepsi s or serious complicati ons (e.g. spread). Will treat with IV and PO abx. Plan:IV ceftriaxon e 2 g nowaugment in 875 BID x 10Call PCP and be seen this weekSeek care for worsening sx, didi CELAYA, lack of resolution Primary care, please see pt for follow up this week Dispositio n:We discussed the diagnostic uncertaint y of home visits and the risk associated with this. In this case, the patient and I felt this to be an acceptable and reasonable amount of risk given the benefit of avoiding an ED visit. We discussed the need to seek care urgently/e mergently in the setting of any new or worsening serious symptoms, particular ly headache, vision changes, lack of resolution , fever. [id number] Camron Huffman MD [facility] [address] [place] [phone] 12/06/2023 13:57:44 12/06/2023 19:13:46 Eruption caused by drug 05174185 L27.0 Acute urin maria isabel tract infection [id number] N39.0 Health Concerns Section Related Observation LastModified by Organization Detai ls LastModified Time None Recorded Concern Status LastModified by Organization Details LastModified Time None Recorded Advance Directives Directive None Recorded Payers Encounter Date Sequence Insurance Name Policy Number Policy Carballo Covered Member ID Carballo Member ID Guarantor Name 06/09/2023 1 [facility] - DOS ON OR AFTER 2022 - DUAL ELIGIBLE - [facility] AND ONE CARE (MEDICARE REPLACEMENT/ADV ANTAGE - HMO) Alba Fabby [id number] Alba Fabby 09/15/2023 1 [facility] - DOS ON OR AFTER 2022 - DUAL ELIGIBLE - [employer] ONE CARE (MEDICARE REPLACEMENT/ADV ANTAGE - HMO) Alba Fabby [id number] Alba Fabby 11/04/2023 1 [facility] - DOS ON OR AFTER 2022 - DUAL ELIGIBLE - [employer] ONE CARE (MEDICARE REPLACEMENT/ADV ANTAGE - HMO) Alba Fabby [id number] Alba Fabby 12/06/2023 1 [facility] - DOS ON OR AFTER 2022 - DUAL ELIGIBLE - [employer] ONE CARE (MEDICARE REPLACEMENT/ADV ANTAGE - HMO) Alba Fabby [id number] Alba Fabby Notes Date Note Type Note Provider Name and Address Organization Details Recorded Time 06/09/2023 text/html [facility] Nurse Triage Notes (Gretta Arce): Chief Complaints: URI Allergies: No Known Comments: Member's daughter is calling reporting an ongoing cough with runny nose/congestion. Identity verified via name/. Member had fevers a few days ago which have now resolved. Have had these symptoms for about a week and they are not improving. Possible sinus infection. No access to home covid tests. Denies CP and SOB. Does have some discomfort in her lungs when she is coughing. Requesting visit for a respiratory assessment. Silver Arce RN .................... .................... .................... .................... .................... .................... .................... . Bone Density Technician Note From Mic Mclaughlin: Family called with concern for pt. Family reports pt was sick back in Nov with similar symptoms, was negative for Covid, but was treated with Prednisone and antibiotics. Current symptoms started last Sunday (06/01/23), and the through the family reports she was much worse. Pt presenting today with severe bilateral lower extremely edema, cough with white production of phlegm, SOB, lethargy, fever, and body aches. Family denies pt having a fever, but MIH/CP discovered the fever. Pt is primarily chair bound, and since symptoms, has been sleeping in a recliner - intensifying the lower extremity edema. Wheezing at the apex, and rhonchi at bases of lungs. Pt's face is flushed, and symptoms meet EMS's sepsis criteria. MIH expressed great concern for an infection, and one that might lead to, if not already be sepsis, along with the benefits of going to the emergency room, pt adamantly refused. Pt has been using her MDI about 2-3 times a day, and her Neb at night to help with sleeping. MD Consult. Again, urged transport to ER, pt refused. Rx 40mg of Prednisone and will Rx of dexamethasone will be sent to pharmacy. Pt and family discussed red flags and when to seek 911/EMS. .................... .................... .................... .................... .................... .................... .................... . Disposition: Fulfilled Laura Jones MD [address] [facility],[address], [place], [phone], [email or web address] 06/09/2023 16:00:59 09/15/2023 text/html [facility] Nurse Triage Notes (Federico Simms): Chief Complaints: Edema Allergies: No Known Comments: [employer] verified the member's name//address and phone number. Member's son calling reporting member having difficulty opening her eyes due to redness & swelling. Member reports redness started yesterday, today with some discharge from her eyes; son concerned for pink eye; no known sick contacts with anyone with pink eye. Encouraged mbr/ son to keep hands away from face/ eyes. Education provided on the response time and the member was advised to monitor reported s/s and seek emergency treatment if needed -Marlon Simms RN .................... .................... .................... .................... .................... .................... .................... . Bone Density Technician Note From Griselda Carranza: Community Bone Density Technician Corbin Carranza SC6 dispatched to a yellow for a 73 yof C/O eye itching/swelling. Upon arrival, the pt was sitting in her bedroom, awake and alert, in no apparent distress. She stated that 3 days prior, her left eye was itchy so she used some eye drops. The following day, the tissue around her eye became more swollen and itchy, and the white part of her eye turned pink. She stated her eye was extremely itchy and uncomfortable at that time, and that she had yellow exudate that morning. She reported her vision as normal, and denied any blurry, double, or lack of vision. She denied any ear pain/itching, nasal congestion, cough, or sore throat. She denied any fever, CELAYA, dizziness, SOB, CP, abd pain, N/V/D, or urinary S/S. Pictures in [facility] consulted; pt was given rx for erythromycin cream, and informed that she could use OTC antihistamines and NSAIDs for comfort, as well as cool compresses. She was instructed not to touch/itch the affected area, and red flags were discussed. .................... .................... .................... .................... .................... .................... .................... . Disposition: Fulfilled Davon Moise MD [address] [place] [address],[address], [place], [phone], [employer] 09/15/2023 15:22:21 11/04/2023 text/html [facility] Nurse Triage Notes (Gucci Isaac): Reason For Request: Pt's son reporting tooth ache and swelling with associated pain, 5 out of 10 pain>symptoms started over this weekend Chief Complaints: Pain Allergies: Unknown Comments: [employer] verified the member's name//address and phone number. Education provided on the response time and the member was advised to monitor reported s/s and seek emergency treatment if neededCG reports the member is feeling unwell with a toothache - Right side - upper - Swelling - no redness - pain is reported as 10/04 - Denies fever - Decreased PO intake - S/S started yesterday morning - Dentist appt to be made tomorrow .................... .................... .................... .................... .................... .................... .................... . Bone Density Technician Note From Neo Yanes: Pt reports worsening upper right jaw pain beginning Sunday and worsening swelling since yesterday. Pt reports hx of the same sx (02/15 and 07/20). Pt has seen dentist but they have not removed any teeth. Pt denies f/n/v/d. NKDA. Pt is alert, NAD. VSS. Afebrile. Non focal neuro exam. Erythema, edema, warmth and tenderness to right maxilla. No mandible tenderness. No remarkable findings in the mouth. Pt treated with ceftriaxone 2 g IV and augmentin PO. Pt instructed to begin augmentin prescription this evening, take with food, f/u with dentist tomorrow for an SHEILA appointment and to seek emergent medical care for new or worsening sx, such as dysphagia or high fever unrelieved by tylenol. .................... .................... .................... .................... .................... .................... .................... . Disposition: Fulfilled Esdras Rodas MD [address] [facility],[address], [place], [phone], [email or web address] 11/04/2023 14:43:32 12/06/2023 text/html This was a supervised home visit with linoleum floor installer Srinivas Boyle. [facility] Nurse Triage Notes (Felicitas Crowder): Chief Complaints: Medication Related PMH: Hypertension, Heart Disease Allergies: Bactrim Comments: Members son calling in to place a referral, member identified via name and . Member who started Bactrim last night for a UTI/yeast infection, prescribed by PCP. Per son member now has ?hives to her leg, back and chest. Areas are red, raised and about quarter size, she denies itchiness or pain, no lip or tongue swelling, no sob or difficulty swallowing. Son has a call out to her PCP. RED flags discussed, son verbalized understanding. .................... .................... .................... .................... .................... .................... .................... . Bone Density Technician Note From Srinivas Boyle: Pt co rash/pink patches not itchy ..with an itchy throat after taking second dose of bactrim. Son gave pt 25mg Benadryl with relief of itchy throat. Pt denies sob swelling of throat tongue lips or eyes. Denies NVD cough wheezing or cp. baseline vitals assessed, lungs clear, afebrile, airway clear. Rash evaluation and pics uploaded. C contacted and discontinued use of bactrim , advised 25mg Benadryl x3 per day, 40mg prednisone given po, rx called in for 4 days 40mg. Cefpodoxime called in. Pt advised to start tonight or tomorrow morning. Pt advised to inform pcp of this event and record her allergy. Pt and son education on signs indicating the ER. Pt advised to follow up with pcp. Bone Density Technician Allergies: Bactrim .................... .................... .................... .................... .................... .................... .................... . Disposition: Fulfilled Camron Huffman MD [address] [facility],[address], [place], [address], [email or web address] 12/06/2023 15:49:43 OBGyn Episode No OBEpisode recorded.
== END 2024-07-23 11:01 | disposition home or self-care (01) ==
PROVIDERS: PCP Nurse Practitioner Family; Visit Provider Nurse Practitioner Family
DX: G62.9 Polyneuropathy, unspecified (principal); M62.838 Other muscle spasm; G82.20 Paraplegia, unspecified
CPT/HCPCS: 99214

== ENCOUNTER → 2024-07-23 09:58 | Outpatient (BNVA) | payer OTHER, SELFPAY | PROVIDERS: PCP Nurse Practitioner Family; Visit Provider Nurse Practitioner Family | DX: G62.9 Polyneuropathy, unspecified (principal); G82.20 Paraplegia, unspecified; M62.838 Other muscle spasm | CPT/HCPCS: 99212 ==

== ENCOUNTER 2024-09-10 08:59 | Outpatient (AMB) | payer OTHER, SELFPAY ==
--- NOTE | 2024-09-10 09:16 | A.OFFVIS_ITS ---
Intake Visit Reasons: 1y/PVR Intake Note: Patient presents for tele follow up urinary incontinence Urology Medications: myrbetriq Blood Thinner: none ALLERGIES:SULFAMETHOXAZOLE,TRIMETHOPRIM PVR: 54ml's TODAY'S PVR:0ML'S Second Baller Required: No Allergies sulfamethoxazole [From Bactrim] Allergy (Verified 09/10/24 10:12) Rash trimethoprim [From Bactrim] Allergy (Verified 09/10/24 10:12) Rash Medication List - Last Reconciled 09/10/24 by EULA Lyons albuterol sulfate 2.5 mg (3 mL) inhalation Q6H PRN albuterol sulfate 90 mcg/actuation 2 puffs inhalation Q4-6H PRN baclofen 10 mg PO QID cholecalciferol (vitamin D3) 50 mcg PO DAILY clotrimazole-betamethasone 1-0.05 % 1 appl topical BID 5 days [commode As directed] commode (bedside commode) As directed fluticasone propionate 50 mcg/actuation (Flonase Allergy Relief) 1 spray intranasal DAILY fluticasone propionate 220 mcg/actuation 2 puffs inhalation BID furosemide 40 mg PO DAILY hydrocortisone 1% 1 appl topical BID lidocaine HCl 2% (Lidocaine Viscous) 1 appl mucous membrane Q4H lisinopril 30 mg PO DAILY loratadine 10 mg PO DAILY menthol-zinc oxide 0.44-20.6 % (Calmoseptine) 1 appl topical QID PRN miconazole nitrate 2% 1 appl topical BID mirabegron ER (Myrbetriq) 25 mg PO DAILY 90 days miscellaneous medical supply 1 ea miscellaneous DAILY miscellaneous medical supply 1 ea miscellaneous .4xday miscellaneous medical supply 1 ea miscellaneous .4xday miscellaneous medical supply 1 ea miscellaneous DAILY naproxen 500 mg PO BEDTIME nebulizers As directed nitrofurantoin macrocrystal 100 mg PO BID 7 days polyethylene glycol 3350 (Miralax) 17 grams PO DAILY PRN pramoxine 1% (Proctofoam) 1 appl OK TID pregabalin 100 mg PO TID 30 days simvastatin 40 mg PO BEDTIME terconazole 0.8% 1 appful vaginal BEDTIME 3 days HPI Comments Details: Rita is a very pleasant 73-year-old Tamazight-speaking female patient of Dr. Oconnell who was accompanied by her son at today's visit. She has a past medical history of constipation, bilateral knee pain - followed by [facility] for knee injections, wheelchair bound, hypertension, bilateral leg pain below knee, GERD, depression, anxiety, hyperlipidemia, and asthma. She presents to the office today for follow-up of her overactive bladder. In discussion with the patient and her son today she reports significant improvement in her lower urinary tract symptoms of urinary urgency and frequency with 25 mg of Myrbetriq daily. She does however report new onset dysuria over the last 3-5 days as well as foul-smelling urine. In office urinalysis results reviewed with the patient and her son today 3+ leukocytes positive nitrates. We discussed potential UTI given patient with lower urinary tract symptoms as well as UA results today. In review of patient's chart it appears last urine culture 01/18 E coli. She does report intermittent episodes of constipation and straining with bowel movements. We discussed correlation of constipation with urinary issues. Previous workup has included a retroperitoneal ultrasound 03/19 noting right kidney with no hydronephrosis or renal calculi. Possible invaginating fat versus angiomyolipoma midpole measuring 1.3 x 2.0 x 1.4 cm. Left kidney with no calculi and or hydronephrosis noted. Discussed importance of continuing to practice timed voiding/scheduled toileting given decrease in mobility. When asked she denies hematuria,changes to urinary stream, flank pain, fever, and or chills. She otherwise offers no issues or concerns at this time. Plan A urinalysis is planned to confirm the presence of a urinary tract infection. If confirmed, an appropriate antibiotic regimen will be prescribed. The patient understands the necessity of completing the course of antibiotics. Ensuring the medication supply is maintained is critical, and it is planned to follow up with the patient to adjust treatment if needed based on culture and sensitivity results. The patient consented to this plan, appreciating the importance of managing the infection promptly to prevent progression or complications. Patient was informed and verbally consented to the use of an ambient scribe for clinic note documentation during this visit. Discussion Notes I discussed with the patient the suspicion of urinary tract infection based on her symptoms and outlined the approach for confirming the diagnosis through urinalysis. We reviewed potential treatment options, including antibiotics, emphasizing the importance of completing the full course to effectively eradicate the infection and to prevent antibiotic resistance. Potential risks associated with antibiotic use, such as side effects, were also addressed. The patient was informed about the necessity of providing a urine sample and consented to this procedure. She was advised to keep track of her medication supply to prevent disruptions in treatment. Follow-up care was discussed to ensure recovery and address any additional concerns. [facility] Medical History Hemorrhoids with complication Paraplegia Encounter to establish care History of shingles Cellulitis Asthma Surgical History History of cataract surgery History of partial hysterectomy Status post right foot surgery Family History Mother Heart failure Father Heart attack Other Mental health disorder Substance use disorder Social History Housing: Apartment Alcohol intake: current Alcohol intake frequency: holidays/special occasions only Patient Tobacco Use Status: Never used Tobacco e-Cigarette/Vaping Use: Never Used Second Hand Smoke Exposure: No service: No Current occupational status: disabled Cognitive needs: Yes (wheelchair) Hearing needs: No Vision needs: Yes Review of Systems Const Reports as per HPI Eyes Reports no additional complaints ENT Reports no additional complaints Card Reports as per HPI Resp Reports as per HPI GI Reports as per HPI Reports as per HPI Musc Reports as per HPI Neuro Reports as per HPI Psych Reports as per HPI Physical Exam Const General: cooperative, healthy appearing, comfortable, no acute distress, well developed, alert and awake Orientation/consciousness: patient oriented x3 Limitations: wheelchair HEENT Head: Yes normal to inspection, Yes normocephalic and Yes atraumatic Ears: hearing grossly normal bilaterally Eyes General: appearance normal, both eyes and all related structures Neck Neck: Yes normal visual inspection and Yes trachea midline Chest Chest palpation & inspection: normal inspection of the chest Resp Effort & Inspection: normal respiratory effort and able to speak in complete sentences Cardio Rate: regular rate GI Inspection: Yes normal to inspection General: Yes no CVA tenderness Back/Spine/Pelvis Back: no CVA tenderness Skin General skin exam: no rashes or lesions noted Neuro General: patient oriented x3 Extrem General: Yes normal to inspection Psych Appearance: grossly normal and well kempt Mental Status: mental status grossly normal Speech and movement: Normal speech and movement present and Clear speech present Affect: normal affect Attitude: cooperative Thought process: Normal thought process present Thought content: Normal thought content present Insight: Fair insight present (Psych) Judgement: Fair judgement present (Psych) Office Procedures Post Void Residual Post Residual Void Post Void Residual (PVR): 0 [id number]-Dyuy Void Residual by ultrasound Results AMB Urinalysis, Automated UA Leukoctes 500 Brandan/uL Last Edit by VINH Butterfield on 09/10/24 09:58 UA Nitrite Positive Last Edit by VINH Butterfield on 09/10/24 09:58 UA Urobilinogen 0.2 mg/dL Last Edit by VINH Butterfield on 09/10/24 09:5 8 UA Protein 15 mg/dL Last Edit by VINH Butterfield on 09/10/24 09:58 UA pH 6.0 Last Edit by VINH Butterfield on 09/10/24 09:58 UA Blood 10 Ryan/uL Last Edit by VINH Butterfield on 09/10/24 09:58 UA Specific [place] 1.015 Last Edit by VINH Butterfield on 09/10/24 09: 58 UA Ketone Negative Last Edit by VINH Butterfield on 09/10/24 09:58 UA Bilirubin 0 mg/dL Last Edit by VINH Butterfield on 09/10/24 09:58 UA Glucose 0 mg/dL Last Edit by VINH Butterfield on 09/10/24 09:58 Results Reviewed Results Reviewed: Laboratory Last Values Urine pH (Auto) 6.0 09/10/24 09:57 Specific [place] (Auto) 1.015 09/10/24 09:57 Urine Protein (Auto) 15 mg/dL 09/10/24 09:57 Glucose (UA)(Auto) 0 mg/dL 09/10/24 09:57 Urine Ketones (Auto) Negative 09/10/24 09:57 Urine Blood (Auto) 10 Ryan/uL 09/10/24 09:57 Urine Nitrite (Auto) Positive 09/10/24 09:57 Urine Bilirubin (Auto) 0 mg/dL 09/10/24 09:57 Urine Urobilinogen (Auto) 0.2 mg/dL 09/10/24 09:57 Leukocyte Esterase (Auto) 500 Brandan/uL 09/10/24 09:57 Assessment & Plan Assessment & Plan (1) Dysuria: Code(s): R30.0 - Dysuria Category: Medical (2) Overactive bladder: Code(s): N32.81 - Overactive bladder Category: Medical (3) Urinary tract infection: Code(s): N39.0 - Urinary tract infection, site not specified Category: Medical Plan In office urinalysis results reviewed with the patient today; as noted above; will send for urine culture. PVR 0 mL. Start Macrobid as discussed and prescribed. Continue Myrbetriq. We discussed potential causes of urinary tract infection. We discussed worsening symptoms. Discussed, educated, and stressed the importance of adequate hydration relation to lower urinary tract symptoms as well as overall health and well-being. Follow-up in 1-3 months with PVR; or sooner with any issues, concerns, and or questions. Orders: Orders AMB Urinalysis Automated Today Z13.9 - Encounter for screening, unspecified Urine Culture Today N39.0 - Urinary tract infection, site not specified Medications: New nitrofurantoin macrocrystal must administer with a meal/food 100 mg PO BID 14 caps 0RF 7 days N39.0 - Urinary tract infection, site not specified Patient Instructions: The patient had an opportunity to ask questions regarding the treatment plan. All questions were answered. Physical exam, labs, and imaging were discussed and reviewed in detail. As well as risks, benefits, and discussion of treatment choices. No major barriers to understanding were identified. The patient expressed understanding and agreement with the above treatment plan. The patient was made aware they should contact our office by phone for worsening of their current condition, the appearance of new symptoms, or with any questions or concerns. Compliance is encouraged with any medications and follow up testing that is ordered. It is a privilege to be allowed the opportunity to participate in? your urological care.? Again, if you have any questions or concerns If you have any questions or concerns please do not hesitate to contact me. The office is [phone]. This note is constructed using voice recognition software. While every effort h as been made to ensure accuracy director of corporate responsibility errors may have been included. Yours sincerely, DYLAN Lyons-BC Coding Level of Care Code Est Pt Level 4 (45656) Complex EM visit Add On G2211 Diagnoses Dysuria R30.0 Overactive bladder N32.81 Urinary tract infection N39.0 CPT Codes Post Residual Void - PVR CPT Code: 29882-Rgbq Void Residual by ultrasound ([id number])
--- OUTSIDE RECORDS SUMMARY | 2024-09-10 09:37 | XMS_ITS | Data Portability ---
Author Organization [facility] Address [address] [place] [id number] Care Team Providers Care Oil House Attendant Name Role Phone HIM CCA OTHER Assessment Encounter Date Assessment Date Assessment LastModified by Organization Details LastModified Time 12/06/2023 12/06/2023 I have reviewed and agree with the assessment and plan as documented by the veterinarian helper. I provided real time medical direction for this encounter and was immediately available to provide additional phone based assistance as needed. History as noted by veterinarian helper. Pt reports she recently had UTI symptoms [...] Orders cefpodoxime 100 mg tablet 2023 024 [facility] #[id number], [address] [place], [place], [id number], 14:11:05 prednisone 20 mg tablet 2023 024 [facility] #93706, [address] [place], [place], [id number], 4 14:11:04 prednisone 20 mg tablet 2023 024 [facility] #[id number], [address] [place], [place], [id number], 4 14:10:49 ceftriaxone 1 gram solution for injection [address] [facility]22730, [address] [place], [place], [id number], 4 11:27:40 amoxicillin 875 mg-potassiu m clavulanate 125 mg tablet [address] [facility]71200, [address] [place], [place], [id number], 4 11:28:27 erythromyci n 5 mg/gram (0.5 %) eye ointment 2023 024 [facility] #45576, [address] [place], [place], [id number], 4 12:37:08 dexamethaso ne 6 mg tablet 2023 024 [facility] #18858, [address] [place], [place], [id number], 4 14:24:52 Patient TargetsNo targets recorded. Patient InstructionsNo instructions recorded. Reason for Referral None Reported. Medical Equipment None Reported. Allergies Allergen ID Allergen Name Allergen Category Reaction Reaction Severity Criticality Documentation Date Start Date Code Code System Note Provider Name and Address Organization Details Recorded Time 7896 Bactrim medicatio n Not available Not available Not available 03/25/2024 44139 9 RxNorm Not Available [facility] - production [...] [degF] 90 /min 90 % 90 % 03730.5 2 g 20 /min 150 mm[Hg] 90 [...] Updated DateTime 4 80 /min 157.48 cm 41700.4 8 g 98.7 [degF] 16 /min 95 % 95 % 168 mm[Hg] 83 mm[Hg] Not Available [employer] [facility] - production 4 11:26:45 Date Recorded Oxygen saturation Oxygen saturation in Arterial blood by Pulse oximetry Body weight Body temperature Respiratory rate Heart rate Systolic blood pressure Diastolic blood pressure Provider Name and Address Organization Details Last Updated DateTime 4 98 % 98 % 95549.9 68 g 98.6 [degF] 16 /min 110 /min 120 mm[Hg] 70 mm[Hg] Not Available [employer] [facility] - production 4 13:57:54 Social History None recorded. Functional Status None recorded. Mental Status None recorded. Family History Nothing Reported. Medical History No medical history recorded. Gynecological HistoryNo gynecological history recorded. Obstetrics History GPAL:G 0 P 0 0 0 0 Past Encounters Encounter ID Performer Location Encounter Start Date Encounter Closed Date Diagnosis/Indication Diagnosis SNOMED-CT Code Diagnosis ICD10 Code Diagnosis Note [id number] Laura Jones MD [facility] [address] [place] [phone] 06/09/2023 14:09:48 06/11/2023 17:37:05 COVID-19 [id number] U07.1 Evaluation in the field was performed by my veterinarian helper colleague, as noted above, I provided real-time direction and supervisio n for this visit. 73yo F with PMHx asthma, recurrent resp infections p/w cough and nasal congestion x 1 week a/w orthopnea and +LE edema. On veterinarian helper assessment VS notable for T 101F, sat [...] COVID with steroids (prednison e given by veterinarian helper, rx dexamethas one to pharmacy), out of [...] shortness of breath, cough, chest pain, fever. [id number] Davon Moise MD [facility] [address] [place] [phone] 09/15/2023 12:21:54 09/16/2023 14:59:05 Bacterial conjunctivitis [id number] H10.9 No red flag signs such as blurry vision or eye pain. Will treat with erythromyc in. Discussed red flag signs for which to seek higher level of care (eye pain, worsening discharge, blurry vision) [id number] Esdras Rodas MD [facility] [address] [place] [phone] 11/04/2023 11:26:29 11/07/2023 04:25:39 Infection of tooth 798937600 K04.7 As noted, we were called to see this patient regarding concerns of dental infection. Evaluation in the field was performed by my veterinarian helper colleague, as noted above, I provided real-time [...] vision changes, lack of resolution , fever. [id number] Camron Huffman MD [facility] [address] [place] [phone] 12/06/2023 13:57:44 12/06/2023 19:13:46 Eruption caused by drug [id number] L27.0 Acute urin maria isabel tract infection [id number] N39.0 Health Concerns Section Related Observation LastModified by Organization Detai ls LastModified Time None Recorded Concern Status LastModified by Organization Details LastModified Time None Recorded Advance Directives Directive None Recorded Payers Encounter Date Sequence Insurance Name Policy Number Policy Carballo Covered Member ID Carballo Member ID Guarantor Name 06/09/2023 1 [facility] - DOS ON OR AFTER 2022 - DUAL ELIGIBLE - LONG-TERM OPTIONS AND ONE CARE (MEDICARE REPLACEMENT/ADV ANTAGE - HMO) Alba Fabby [id number] Alba Fabby 09/15/2023 1 [facility] - DOS ON OR AFTER 2022 - DUAL ELIGIBLE - LONG-TERM OPTIONS AND ONE CARE (MEDICARE REPLACEMENT/ADV ANTAGE - HMO) Alba Fabby [id number] Alba Fabby 11/04/2023 1 [facility] - DOS ON OR AFTER 2022 - DUAL ELIGIBLE - LONG-TERM OPTIONS AND ONE CARE (MEDICARE REPLACEMENT/ADV ANTAGE - HMO) Alba Fabby [id number] Alba Fabby 12/06/2023 1 [facility] - DOS ON OR AFTER 2022 - DUAL ELIGIBLE - LONG-TERM OPTIONS AND ONE CARE (MEDICARE REPLACEMENT/ADV ANTAGE - HMO) Alba Fabby [id number] Alba Fabby Notes Date Note Type Note [...] .................... .................... .................... .................... .................... .................... . Data Center Consultant Note From Mic Mclaughlin: Family called with [...] . Disposition: Fulfilled Laura Jones MD [address] [facility],[address], [place], [address], [employer] 06/09/2023 16:00:59 09/15/2023 text/html CRC Nurse Triage Notes (Federico Simms): Chief Complaints: Edema Allergies: No Known Comments: History Teacher verified the member's name//address and phone number. [...] .................... .................... .................... .................... .................... .................... . Data Center Consultant Note From Griselda Carranza: Community Data Center Consultant Corbin Carranza SC6 dispatched to a yellow [...] N/V/D, or urinary S/S. Pictures in [facility]. [facility] [place]; pt was given rx for erythromycin cream, and informed that she could use OTC antihistamines and NSAIDs for comfort, as well as cool compresses. She was instructed not to touch/itch the affected area, and red flags were discussed. .................... .................... .................... .................... .................... .................... .................... . Disposition: Fulfilled Davon Moise MD [address] [place] [address],[address], [place], [address], [employer] 09/15/2023 15:22:21 11/04/2023 text/html CRC Nurse Triage Notes (Gucci Isaac): Reason For Request: Pt's son reporting tooth ache and swelling with associated pain, 5 out of 10 pain>symptoms started over this weekend Chief Complaints: Pain Allergies: Unknown Comments: History Teacher verified the member's name//address and phone number. [...] .................... .................... .................... .................... .................... .................... . Data Center Consultant Note From Neo Yanes: Pt reports worsening [...] . Disposition: Fulfilled Esdras Rodas MD [address] [facility],[address], [place], [address], [employer] 11/04/2023 14:43:32 12/06/2023 text/html This was a supervised home visit with veterinarian helper Srinivas Boyle. CRC Nurse Triage Notes (Felicitas [...] .................... .................... .................... .................... .................... .................... . Data Center Consultant Note From Srinivas Boyle: Pt co rash/pink [...] Pt advised to follow up with pcp. Data Center Consultant Allergies: Bactrim .................... .................... .................... .................... .................... .................... .................... . Disposition: Fulfilled Camron Huffman MD [address] [facility],[address], [place], [address], [employer] 12/06/2023 15:49:43 OBGyn Episode No OBEpisode recorded.
== END 2024-09-10 10:05 | disposition home or self-care (01) ==
LOC: HO.HUSH 09:01
PROVIDERS: PCP Nurse Practitioner Family; Visit Provider Nurse Practitioner Family
DX: R30.0 Dysuria (principal); N32.81 Overactive bladder; N39.0 Urinary tract infection, site not specified; Z13.9 Encounter for screening, unspecified
CPT/HCPCS: 99214; G2211

== ENCOUNTER 2024-09-10 08:59 | Outpatient (REF) | payer OTHER, SELFPAY | END 2024-09-10 09:00 | disposition home or self-care (01) | LOC: HO.LAB 08:59 | PROVIDERS: PCP Nurse Practitioner Family; Visit Provider Nurse Practitioner Family | DX: N39.0 Urinary tract infection, site not specified (principal) | CPT/HCPCS: 51798; 81003; 87086; 87088; 87186; 99212 ==

== ENCOUNTER → 2024-10-17 10:00 | Outpatient (BNV) | payer OTHER, SELFPAY | PROVIDERS: PCP Internal Medicine; Visit Provider Internal Medicine | DX: Z12.31 Encounter for screening mammogram for malignant neoplasm of breast (principal) | CPT/HCPCS: 77063; 77067 ==

== ENCOUNTER 2024-10-17 10:02 | Outpatient (REF) | payer OTHER, SELFPAY | END 2024-10-17 10:03 | disposition home or self-care (01) | LOC: HO.MAMMO 10:02 | PROVIDERS: PCP Internal Medicine; Visit Provider Internal Medicine | DX: Z12.31 Encounter for screening mammogram for malignant neoplasm of breast (principal) | CPT/HCPCS: 77063; 77067 ==

== ENCOUNTER 2024-11-14 10:12 | Outpatient (AMB) | payer OTHER, SELFPAY ==
--- NOTE | 2024-11-14 10:19 | MHC.OFFVIS ---
Vital Signs 11/14/24 10:27 Height 5 ft 1 in Intake Visit Reasons: B/L knee OA, (80) last inj 06/20/24 Intake Note: Rita is a 74 year old female who presents today in a wheelchair for a repeat injection for her bilateral knees, last injections 06/20/24. Patient reports her last injections gave her relief and she would like to repeat. Allergies sulfamethoxazole (From Bactrim) Allergy (Verified 11/14/24 10:27) Rash trimethoprim (From Bactrim) Allergy (Verified 11/14/24 10:27) Rash HPI HPI B/L knee OA, (80) last inj 06/20/24: Details: Patient presents to the office today for repeat cortisone injections in bilateral knees. Last injection was 06/20/2024. [facility] Medical History Hemorrhoids with complication Paraplegia Encounter to establish care History of shingles Cellulitis Asthma Surgical History History of cataract surgery History of partial hysterectomy Status post right foot surgery Family History Mother Heart failure Father Heart attack Other Mental health disorder Substance use disorder Social History Housing: Apartment Alcohol intake: current Alcohol intake frequency: holidays/special occasions only Patient Tobacco Use Status: Never used Tobacco e-Cigarette/Vaping Use: Never Used Second Hand Smoke Exposure: No service: No Current occupational status: disabled Cognitive needs: Yes (wheelchair) Hearing needs: No Vision needs: Yes Review of Systems Const All systems reviewed & are unremarkable except as noted in HPI and below Physical Exam Const General: cooperative, healthy appearing and no acute distress Resp Effort & Inspection: normal respiratory effort and able to speak in complete sentences Extrem Other: Bilateral knees: Normal to inspection. No ecchymosis, erythema, or joint effusion. Extension to about 40 degrees. Flexion to 80 degrees. Global tenderness to palpation. Unable to assess Radha's or anterior drawer. NVI. Office Procedures AMB Joint Injection/Aspiration Joint Injection/Aspiration Primary Site: right knee Secondary Site: left knee Prep: site was prepped using aseptic technique, ethochloride spray was applied and injection warnings given Injected: 80 mg of, with 8 mL of (2% plain lidocaine) and in the joint Approach Used: anterolateral Procedure: The patient tolerated the procedure well, but had some pain with the injection and there was some relief with the local anesthesia Coding 30133 - Bilateral Large Joint Procedure code (CPT) selection complete Assessment & Plan Assessment & Plan (1) Osteoarthritis of knees, bilateral: Code(s): M17.0 - Bilateral primary osteoarthritis of knee Category: Medical Qualifiers: Osteoarthritis type: unspecified Qualified Code(s): M17.0 - Bilateral primary osteoarthritis of knee Plan The patient was offered a cortisone injection in bilateral knees with 80 mg of DepoMedrol. The patient was explained the risks, benefits, and alternatives to receiving this injection. After receiving consent for the injection, the patient had the procedure done while in the office today. The patient tolerated the procedure well with no complications. Follow-up will be p.r.n., or sooner if needed Coding Level of Care Code Est Pt Level 3 (90302) Diagnoses Osteoarthritis of both knees, unspecified osteoarthritis type M17.0 Osteoarthritis type: unspecified CPT Codes Coding - 68589 - Bilateral Large Joint: 13564 - Bilateral Large Joint ([id number])
== END 2024-11-14 10:36 | disposition home or self-care (01) ==
LOC: HO.HOS 10:13
PROVIDERS: PCP Nurse Practitioner Family; Visit Provider Physician Assistant
DX: M17.0 Bilateral primary osteoarthritis of knee (principal)
CPT/HCPCS: 20610; 99213

== ENCOUNTER → 2024-11-14 10:12 | Outpatient (BNVA) | payer OTHER, SELFPAY | PROVIDERS: PCP Nurse Practitioner Family; Visit Provider Physician Assistant | DX: M17.0 Bilateral primary osteoarthritis of knee (principal) | CPT/HCPCS: 20610; 99212; J1010; J2003 ==

== ENCOUNTER 2024-11-20 07:49 | Outpatient (AMB) | payer OTHER, SELFPAY ==
--- OUTSIDE RECORDS SUMMARY | 2024-11-20 07:53 | XMS_ITS | Data Portability ---
Author Organization [place] - [facility] Address [address] [place] [phone] Care Team Providers Care Executive Director Global Brand Marketing Name Role Phone [facility] Primary Care Provider [phone] Assessment Encounter Date Assessment Date Assessment LastModified by Organization Details LastModified Time 03/31/2020 03/31/2020 Overview/History : 70yo female with a PMHx of asthma, HTN/HLD, arthritis, lymphadema and hereditary spastic paraplegia and that results in her only being able to walk a few steps, this started in her 40's and her mobility has gotten progressively worse. Today she is febrile, in a moderate amount of pain, especially when LLE palpated. She denies chest pain, SOB, headaches, or chills. She reports she slid from her chair on 03/29 at 1a, no known injury resulted but she developed pain to LLE during the day Sunday and yesterday a vesicular rash developed that has increased in burning in pain. Exam: T- 101.8 HR- 105 RR- 22 BP-166/100 SpO2- 96% RA Pt is alert, well nourished, non toxic appearing but in pain Normal heart sounds, no edema LSCTA, breathing unlabored Abd soft +BS nontender Skin- BLE red/malathi consistent with venous stasis, LLE has vesicular rash with warm erythematous base DDx considered, but not limited to: Herpes zoster- likely based on vesicular rash following the L2 dermatome and burning description of pain Possible fracture L hip or femur- warrants imaging. Cellulitis- possible LLE is erythematous/war m, she is febrile to 101.8 Cauda equina & lumbar fractures considered- no incontinence 4/5 strength BLE (baseline) Viral rash- possible-appears to be Herpes zoster Sepsis- possible, she is febrile & tachycardiac- going to ER for evaluation Work up/Results: Physical Exam Escalated to ED Plan/Discussion: Discussed with patient, daughter and son we are concerned with her inability to bear weight and pain in LLE. Her rash is consistent with Shingles which may be causing the pain but she should have Xrays to rule out fractures of hip and LLE. Pt does not demonstrate safety to stay in home Family and patient in agreement with plan and 911 was called. In order to obtain further information and compare any laboratory results/values, I have accessed patient records on the [employer]. This information was pertinent in my medical decision making today. Proper Personal Protective Equipment (PPE), including gloves, eye protection and masks were donned and doffed appropriately and all equipment cleaned using approved technique with germicidal disposable wipes prior to and after care of this patient according to [facility]'s infection prevention protocols. The patient was advised to go to the ED for evaluation The patient, son and daughter understood and agreed with this plan. All questions were answered prior to DH team departure, EMD arrived, handoff was given and pt was taken to [facility] for further evaluation and treatment. Not available 03/31/2020 19:09:41 Plan of Treatment Reminders Order Date Submit Date Provider Last Modified By Organization Details Last Modified Time Details Appointments None record ed. Lab None record ed. Referral None record ed. Procedures None record ed. Surgeries None record ed. Imaging None record ed. Medication Orders None record ed. Patient TargetsNo targets recorded. Patient InstructionsNo instructions recorded. Reason for Referral None Reported. Procedures Surgical History Date Name Laterality Status Provider Name and Address Organization Details Recorded Time Hysterectomy /bladder repair completed Esmer Mckeon NP [address] [place] [address], [phone], [place] [facility] 03/31/2020 14:42:40 Imaging Results None recorded. Procedure Notes None recorded. Medical Equipment None Reported. Allergies No known drug allergies Medications Name Sig Start Date Stop Date Status Note LastModified by Organization Details LastModified Time furosemide 40 mg tablet active Not Available Not Available Not Available albuterol sulfate 2.5 mg/3 mL (0.083 %) solution for nebulizatio n active Not Available Not Available Not Available tizanidine 4 mg tablet active Not Available Not Available Not Available prednisone 20 mg tablet 03/31 completed Not Available Not Available Not Available simvastatin 40 mg tablet active Not Available Not Available Not Available baclofen 20 mg tablet active Not Available Not Available No t Available ascorbic acid (vitamin C) 250 mg tablet TAKE 1 TABLET BY MOUTH TWICE A DAY active Not Available Not Available No t Available phenazopyri dine 100 mg tablet TAKE 1 TABLET BY MOUTH THREE TIMES A DAY 03/31 completed Not Available Not Available Not Available baclofen 10 mg tablet active Not Available Not Available No t Available sertraline 25 mg tablet active Not Available Not Available Not Available hydrocortis one 2.5 % topical cream active Not Available Not Available Not Available polyethylen e glycol 3350 17 gram/dose oral powder 03/31 completed Not Available Not Available Not Available albuterol sulfate HFA 90 mcg/actuati on aerosol inhaler INHALE 2 PUFFS EVERY 6 HOURS NEEDED FOR WHEEZING active Not Available Not Available No t Available ferrous sulfate 325 mg (65 mg iron) tablet,alli yed release TAKE 1 TABLET BY MOUTH TWICE A DAY active Not Available Not Available No t Available loratadine 10 mg tablet active Not Available Not Available Not Available naproxen 500 mg tablet active Not Available Not Available Not Available nitrofurant oin monohydrate /macrocryst als 100 mg capsule 03/31 completed Not Available Not Available Not Available Flovent HFA 220 mcg/actuati on aerosol inhaler active Not Available Not Available Not Available pregabalin 50 mg capsule active Not Available Not Available Not Available calcium 600 mg (as carbonate)- vitamin D3 10 mcg (400 unit) tablet TAKE 1 TABLET BY MOUTH TWICE A DAY active Not Available Not Available No t Available cholecalcif mica (vitamin D3) 50 mcg (2,000 unit) tablet active Not Available Not Available Not Available Fluzone High-Dose (PF) 180 mcg/0.5 mL intramuscul ar syringe active Not Available Not Available N ot Available Fluad Quad 5006-8605(6 5yr up)(PF) 60 mcg (15 mcg x 4)/0.5mL IM syringe [facility] active Not Available Not Available No t Available Vitals Date Recorded Respiratory rate Heart rate Oxygen saturation Oxygen saturation in Arterial blood by Pulse oximetry Body temperature Systolic blood pressure Diastolic blood pressure Provider Name and Address Organization Details Last Updated DateTime 0 24 /min 105 /min 96 % 96 % 101.8 [degF] 166 mm[Hg] 100 mm[Hg] Not Available [facility] 0 14:47:24 Social History Question Answer Notes LastModified by Organizat ion Details LastModified Time Tobacco Smoking Status Never Smoker Esmer Mckeon, BUFFY [address], [place], [address], [place] [facility] 03/31/2020 18:38:41 What Is Your Code Status? Full Code [email or web address] Information not available 03/31/2020 Within The Past 12 Months, Has It Happened That The Food You Bought Just Didn't Last And You Didn't Have Money To Get More. No [email or web address] Information not available 03/31/2020 Within The Past 12 Months, Have You Worried That Your Food Would Run Out Before You Got Money To Buy More. No Information not available 03/31/2020 Fall Risk: Do You Feel Unsteady When Standing Or Walking? Yes [email or web address] Information not available 03/31/2020 We Know That How And When People Interact With Friends And Family Can Be Very Different From Person To Person. How Often Do You Have The Opportunity To See Or Talk To People That You Care About And Feel Close To? (Ex: Talking To Friends On The Phone Or Visiting Friends Or Family Or Going To Congregation Or Club Meetings) 5 Or More Times Per Week [email or web address] Information not available 03/31/2020 We Know From Many Of Our Patients That Covering All Of Their Costs Can Be Difficult At Times. This Can Cause Stress And Impact Health. In The Past Year, Have You Been Unable To Get Any Of The Following When It Was Really Needed? No [email or web address] Information not available 03/31/2020 What Is Your Housing Situation Today? I Have Housing [email or web address] Information not available 03/31/2020 Would You Like Help Connecting To Resources? None Information not available 03/31/2020 Sex: Unknown Functional Status None recorded. Mental Status None recorded. Family History Relationship Description Onset Age of this Age Resolved Age Notes LastModified by Organization Details LastModified Time Mother Spasticity [email or web address] Not availab le 03/31/2020 18:39:04 Brother Spasticity Not availa ble 03/31/2020 18:39:04 Medical History Condition Response Diabetes N Coronary Artery Disease N Cancer N Stroke N Depression N COPD N Asthma Y Pulmonary Embolism N Hypertension Y Kidney Disease N Gynecological HistoryNo gynecological history recorded. Obstetrics History GPAL:G 0 P 0 0 0 0 Past Encounters Encounter ID Performer Location Encounter Start Date Encounter Closed Date Diagnosis/Indication Diagnosis SNOMED-CT Code Diagnosis ICD10 Code Diagnosis Note [id number] Esmer Mckeon NP [facility] [address] [place] [address] 03/31/2020 14:37:20 04/01/2020 17:37:21 Herpes zoster 4432011 B02.9 Pain in le ft lower limb 366212792 M79.605 Health Concerns Section Related Observation LastModified by Organization Detai ls LastModified Time None Recorded Concern Status LastModified by Organization Details LastModified Time None Recorded Advance Directives Directive None Recorded Payers Insurance Date Sequence Insurance Name Policy Number Policy Carballo Covered Member ID Carballo Member ID Guarantor Name 03/31/2020 1 *SELF PAY* Rita Sequeira [id number] Rita Sequeira 03/31/2020 1 [facility] - DOS PRIOR TO 2022 - DUAL ELIGIBLE (MEDICARE REPLACEMENT/ADV ANTAGE - HMO) Rita Sequeira [id number] Rita Sequeira Notes Date Note Type Note Provider Name and Address Organization Details Recorded Time 03/31/2020 text/html 70yo female with a PMHx of asthma, HTN/HLD, arthritis, hereditary spastic paraplegia, only ambulates a few steps at a time at baseline, has been unable to get OOB since yesterday. On Sunday03/29/20 she fell at 1a slid from chair , pain developed in LLE on Sunday afternoon, and erythemic rash appeared Friday 03/30. Vesicles appeared this am. Her son Franko is her rag grader and provides care 18/12. She is liberian speaking only- Franko translates. Esmer Mckeon NP [address], [place], [address], [place] [facility] 03/31/2020 20:05:40 OBGyn Episode No OBEpisode recorded.
[2024-11-20 07:59] VITALS: BP 124/62; PULSE 72; O2SAT 97
--- NOTE | 2024-11-20 07:59 | A.OFFPC_ITS ---
Vital Signs 11/20/24 07:59 Height 5 ft 1 in BMI Reason not done Patient refused/unable BP 124/62 Blood Pressure Location Lt brachial Position Sitting Pulse 72 Pulse Source Pulse Oximeter Pulse Oximetry (%) 97 Oxygen Delivery Method Room Air Intake Visit Reasons: 6 months f/u appt Allergies sulfamethoxazole (From Bactrim) Allergy (Verified 11/20/24 08:03) Rash trimethoprim (From Bactrim) Allergy (Verified 11/20/24 08:03) Rash Tobacco use date assessed: 11/20/24 Fall risk assessment: No Falls in past year Last assessed Fall Risk: 11/20/24 Dental Screening Dental Screen Date: 11/20/24 Did you have a dental visit in the last 12 months?: Yes Did you have a dental problem in the last 6 months where you did not have access to dental care?: No Was dental information given to patient?: Patient has dentist [facility] Medical History Hemorrhoids with complication Paraplegia Encounter to establish care History of shingles Cellulitis Asthma Surgical History History of cataract surgery History of partial hysterectomy Status post right foot surgery Family History Mother Heart failure Father Heart attack Other Mental health disorder Substance use disorder Social History Housing: Apartment Alcohol intake: current Alcohol intake frequency: holidays/special occasions on ly Patient Tobacco Use Status: Never used Tobacco Tobacco use type: Cigarette e-Cigarette/Vaping Use: Never Used Second Hand Smoke Exposure: No service: No Current occupational status: disabled Cognitive needs: Yes (wheelchair) Hearing needs: No Vision needs: Yes Questionnaire PHQ-9 Over the last 2 weeks, how often have you been bothered by any of the following problems? 1. Little interest or pleasure in doing things: several days 2. Feeling down, depressed, or hopeless: not at all 3. Trouble falling or staying asleep, or sleeping too much: not at all 4. Feeling tired or having little energy: several days 5. Poor appetite or overeating: not at all 6. Feeling bad about yourself - or that you are a failure or have let yourself or your family down: several days 7. Trouble concentrating on things, such as reading the newspaper or watching television: not at all 8. Moving or speaking so slowly that other people could have noticed. Or the opposite - being so fidgety or restless that you have been moving around a lot more than usual: not at all 9. Thoughts that you would be better off or of hurting yourself in some way: not at all Total score: 3 Depression Screening Interpretation: Positive Depression Screening Done: Yes Source: Developed by Drs. Vern Canchola, Anita Peters, Hardik Russo and colleagues, with an educational jeremie from [employer]. Thrive Questionnaire Date Thrive assessed: 11/14/24 I am a: Patient What is your living situation today?: I have a steady place to live Within the past 12 months, did the food you bought not last and you didn't have the money to get more?: Never true Within the past 12 months, did you worry whether your food would run out before you got money to buy more?: Never true Do you have trouble paying for medicines?: No Do you have trouble getting transportation to medical appointments?: No Do you have trouble paying your heating and electricity bill?: No Do you have trouble taking care of your child, family member or friend?: No Do you have trouble with day-to-day activities such as bathing, preparing meals, shopping, managing finances, etc.?: Yes Are you currently unemployed and looking for a job?: No Are you interested in more education?: No Please select the resources that you would like help with: None Currently or been in a relationship where the following occur: No concerns reported THRIVE Score: 0 AUDIT C Alcohol Use Questionnaire (AUDIT-C) 1. How often do you have a drink containing alcohol?: Monthly or less 2. How many drinks containing alcohol do you have on a typical day when you are drinking?: 1 or 2 3. How often do you have six or more drinks on one occasion?: Never Total Score: 1 LAMIN-7 AMB Questionnaire LAMIN-7 Date LAMIN - 7 assessed: 11/20/24 Feeling nervous, anxious, or on edge: 0 = Not at all Not being able to stop or control worryin = Not at all Worrying too much about different things: 0 = Not at all Trouble relaxin = Not at all Being so restless that it is hard to sit still: 0 = Not at all Becoming easily annoyed or irritable: 0 = Not at all Feeling afraid as if something awful might happen: 0 = Not at all Total LAMIN-7 score (0-4 normal; 5-9 mild; 10-14 moderate; 15-21 severe): 0 Source: Developed by Drs. Vern Canchola, Anita Peters, Hardik Russo and colleagues, with an educational jeremie from [employer]. Physical exam (Primary Care) Vital Signs: Last Vital Signs Pulse 72 11/20/24 07:59 BP 124/62 11/20/24 07:59 Pulse Ox 97 11/20/24 07:59 Oxygen Delivery Method Room Air 11/20/24 07:59 Tobacco/Smoking Status: Tobacco use Status Tobacco use date assessed 11/20/24 11/20/24 08:10 Patient Tobacco Use Status Never used Tobacco 11/20/24 08:00 Tobacco use type Cigarette 11/20/24 08:10 e-Cigarette/Vaping Use Never Used 11/20/24 08:00 PHQ-9: PHQ-9 Score PHQ-9: Total score 3 11/20/24 08:10 Depression Screening Interpretation: Positive Thrive Assessment: Date of Thrive Assessment Date Thrive assessed 11/14/24 11/20/24 08:00 Currently or been in a relationship where the following occur: No concerns reported Coding Level of Care Code Est Pt Level 4 (01525) Complex EM visit Add On G2211 Diagnoses Hypertension I10 Assessment & Plan Assessment & Plan (1) Hypertension: Code(s): I10 - Essential (primary) hypertension Category: Medical Plan: BP in range. BW ordered Plan History of Present Illness - The patient is a 74-year-old female presenting with a rash in the groin area. - The rash initially appeared last year and has since spread up her body. - The rash has subsided slightly but left scratch dunn. - Keeping the area dry and using a topical powder has been beneficial. - Previous use of a cream was ineffective, and urgent care recommended powder instead. - The patient also reports an itch in her throat. - Blood work has not been done recently and is planned for today. - A urine test is considered to rule out a urinary tract infection. Social History Review of Systems - Dermatological: Reports rash in the groin area, subsided but left scratch dunn. - Respiratory: Reports itch in the throat. Physical Exam General: Cooperative and healthy appearing Nutritional Appearance: Well nourished Orientation/consciousness: Patient oriented x3 Limitations: No limitations Head: Normal to inspection General: Appearance normal, both eyes and all related structures Neck: Normal visual inspection Chest: Normal palpation of entire chest wall Respiratory: Everything is good ormal respiratory effort Neurology: Patient oriented x3 Results Plan 1. Rash In The Groin Area - Continue using topical powder to keep the area dry. - Prescription for powder to be provided if needed. 2. Itch In The Throat - Blood work to be conducted to investigate underlying causes. 3. Suspected Urinary Tract Infection - Urine test to be conducted to confirm diagnosis. Discussion Notes I discussed with the patient the management of her rash, emphasizing the importance of keeping the area dry and using a topical powder. We also talked about conducting blood work to investigate the itch in her throat and a urine test to rule out a urinary tract infection. Follow-up was scheduled for six months. Patient Instructions - Continue using the topical powder to keep the rash area dry. - Complete the blood work and urine test as discussed. - Follow up in six months or sooner if symptoms worsen. Orders: Orders Complete Blood Count no Diff Today I10 - Essential (primary) hypertension Liver Panel Today I10 - Essential (primary) hypertension Thyroid Stimulating Hormone Today I10 - Essential (primary) hypertension UA and rflx microscopic Today I10 - Essential (primary) hypertension Basic Metabolic Panel Today I10 - Essential (primary) hypertension Lipid Panel Today I10 - Essential (primary) hypertension Medications: New nystatin 1 appl topical DAILY 30 grams 0RF Refilled terconazole 0.8% 1 appful vaginal BEDTIME 20 grams 0RF 3 days
== END 2024-11-20 08:21 | disposition home or self-care (01) ==
LOC: HO.HMCH 07:50
PROVIDERS: PCP Internal Medicine; Visit Provider Internal Medicine
DX: I10 Essential (primary) hypertension (principal)

== ENCOUNTER 2024-11-20 07:49 | Outpatient (REF) | payer OTHER, SELFPAY ==
[2024-11-20 09:07] LABS: Hematocrit 42.3 % (37.0-47.0); Hemoglobin 14.1 g/dl (12.0-16.0); Mean Corpuscular HGB Conc 33.3 g/dl (31.0-35.0); Mean Corpuscular Hemoglobin 28.4 pg (27.0-33.0); Mean Corpuscular Volume 85.3 fL (80.0-98.0); Mean Platelet Volume 9.9 fL (9.4-12.3); Platelet Count 329 X10*3/uL (160-400); Red Blood Count 4.96 X10*6/uL (4.20-5.50); Red Cell Distribution Width 15.3 % (11.0-16.0); White Blood Count 12.7 X10*3/uL (4.8-10.8)
[2024-11-20 09:43] LABS: Alanine Aminotransferase 17 U/L (0-31); Albumin Level 4.4 g/dL (3.5-5.0); Alkaline Phosphatase 84 U/L (39-117); Anion Gap 13 (12-20); Aspartate Amino Transferase 13 U/L (5-31); Bilirubin Direct 0.2 mg/dL (0.0-0.5); Bilirubin Total 0.3 mg/dL (0.0-1.0); Blood Urea Nitrogen 29 mg/dL (9-16); Calcium 9.3 mg/dL (8.4-10.2); Carbon Dioxide 26 mmol/L (22-29); Chloride 103 mmol/L (96-108); Cholesterol 190 mg/dL (<200); Estimated Glomerular Filt Rate > 60; Glucose Random 126 mg/dL (60-115); HDL Cholesterol 51 mg/dL (>40); LDL Cholesterol Calculated 96 mg/dL (<100); Potassium 4.2 mmol/L (3.3-5.1); Sodium 138 mmol/L (135-145); Total Protein 7.2 g/dL (6.5-8.0); Triglycerides 219 mg/dL (<150)
[2024-11-20 09:51] LABS: Appearance Urine Clear; Color Urine Yellow; Glucose Urine UA Negative (Negative); Leukocyte Esterase Urine Trace (Negative); Nitrite Urine Negative (Negative); PH 6.5 (5.0-9.0); UMIC TRIGGER UA YES; Urine Blood Trace (Negative); Urine Ketones Negative (Negative); Urine Protein Negative (Neg-Trace)
[2024-11-20 09:56] LABS: Bacteria Urine None Seen (None Seen); Hyaline Casts Urine 0-2 /LPF (0-2); RBC Urine 0-2 /HPF (0-2); Squamous Epithelial Cell Urine 0-2 /HPF (0-2); WBC Urine 0-5 /HPF (0-5)
[2024-11-20 10:01] LABS: Thyroid Stimulating Hormone 2.32 uIU/mL (0.32-4.0)
== END 2024-11-20 07:50 | disposition home or self-care (01) ==
LOC: HO.LAB 07:49
PROVIDERS: Internal Medicine Hypertension Specialist; PCP Internal Medicine; Visit Provider Internal Medicine
DX: I10 Essential (primary) hypertension (principal)
CPT/HCPCS: 36415; 80048; 80061; 80076; 81001; 84443; 85027; 99212

== ENCOUNTER 2024-12-11 09:39 | Outpatient (AMB) | payer OTHER, SELFPAY ==
--- OUTSIDE RECORDS SUMMARY | 2024-12-11 09:57 | XMS_ITS | Data Portability ---
Author Organization [place] [facility] Address [address] [place] [id number] Care Team Providers Care Sap Security Consultant Name Role Phone [facility] Primary Care Provider Assessment Encounter Date Assessment Date Assessment LastModified [...] after care of this patient according to [facility] infection prevention protocols. The patient was advised to go to the ED for evaluation The patient, son and daughter understood and agreed with this plan. All questions were answered prior to DH team departure, EMD arrived, handoff was given and pt was taken to [place] for further evaluation and treatment. [email or web address] Not available 03/31/2020 19:09:41 Plan of Treatment [...] Hysterectomy /bladder repair completed Esmer Mckeon NP [address] [place] [address], [phone], [place] [facility] 03/31/2020 14:42:40 Imaging Results None recorded. Procedure [...] Not Available N ot Available Fluad Quad [id number](6 5yr up)(PF) 60 mcg (15 mcg x 4)/0.5mL IM syringe [facility] active Not Available Not Available No t Available Vitals Date Recorded Respiratory rate Heart rate Oxygen saturation Oxygen saturation in Arterial blood by Pulse oximetry Body temperature Systolic And Diastolic Provider Name and Address Organization Details Last Updated DateTime 0 24 /min 105 /min 96 % 96 % 101.8 [degF] 166/100 mm[Hg] Not Available [facility] 0 14:47:24 Social History Question Answer Notes LastModified by Organizat ion Details LastModified Time Tobacco Smoking Status Never Smoker Esmer Mckeon, BUFFY [address], [place], [address], [place] [facility] 03/31/2020 18:38:41 What Is Your Code Status? Full Code [email or web address] Information not available 03/31/2020 Within The Past 12 Months, Has It Happened That The Food You Bought Just Didn't Last And You Didn't Have Money To Get More. No [email or web address] Information not available 03/31/2020 Within The Past 12 Months, Have You Worried That Your Food Would Run Out Before You Got Money To Buy More. No [email or web address] Information not available 03/31/2020 Fall Risk: Do You Feel Unsteady When Standing Or Walking? Yes Information not available 03/31/2020 We Know That How And When People Interact With Friends And Family Can Be Very Different From Person To Person. How Often Do You Have The Opportunity To See Or Talk To People That You Care About And Feel Close To? (Ex: Talking To Friends On The Phone Or Visiting Friends Or Family Or Going To Methodist Or Club Meetings) 5 Or More Times Per Week [email or web address] Information not available 03/31/2020 We Know From Many Of Our Patients That Covering All Of Their Costs Can Be Difficult At Times. This Can Cause Stress And Impact Health. In The Past Year, Have You Been Unable To Get Any Of The Following When It Was Really Needed? No [email or web address] Information not available 03/31/2020 What Is Your Housing Situation Today? I Have Housing [email or web address] Information not available 03/31/2020 Would You Like Help Connecting To Resources? None Information not available 03/31/2020 Sex: Unknown Functional Status None recorded. Mental Status None recorded. Family History Relationship Description Onset Age of this Age Resolved Age Notes LastModified by Organization Details LastModified Time Mother Spasticity Not availab le 03/31/2020 18:39:04 Brother Spasticity [email or web address] Not availa ble 03/31/2020 18:39:04 Medical History Condition Response Coronary Artery Disease N Depression N COPD N Cancer N Stroke N Kidney Disease N Diabetes N Asthma Y Pulmonary Embolism N Hypertension Y Gynecological HistoryNo gynecological history recorded. Obstetrics History GPAL:G 0 P 0 0 0 0 Past Encounters Encounter ID Performer Location Encounter Start Date Encounter Closed Date Diagnosis/Indication Diagnosis SNOMED-CT Code Diagnosis ICD10 Code Diagnosis Note [id number] Esmer Mckeon NP [facility] [address] [place] [address] 03/31/2020 14:37:20 04/01/2020 17:37:21 Herpes zoster 8356393 B02.9 Pain in le ft lower limb 881843582 M79.605 Health Concerns Section Related Observation LastModified by Organization Detai ls LastModified Time None Recorded Concern Status LastModified by Organization Details LastModified Time None Recorded Advance Directives Directive None Recorded Payers Insurance Date Sequence Insurance Name Policy Number Policy Carballo Covered Member ID Carballo Member ID Guarantor Name 03/31/2020 1 *SELF PAY* Rita Sequeira [id number] Rita Sequeira 03/31/2020 1 [facility] - DOS PRIOR TO 2022 - DUAL ELIGIBLE (MEDICARE REPLACEMENT/ADV ANTAGE - HMO) Rita Sequeira [id number] Rita Sequeira Notes Date Note Type Note [...] this am. Her son Franko is her return to factory clerk and provides care 18/12. She is lithuanian speaking only- Franko translates. Esmer Mckeon NP [address] [place], [address], [place] [facility] 03/31/2020 20:05:40 OBGyn Episode No OBEpisode recorded.
--- NOTE | 2024-12-11 10:09 | A.OFFVIS_ITS ---
Intake Visit Reasons: 3m/ PVR Intake Note: Patient presents today for follow up on: Dysuria, OAB, and UTI Urology Medications: myrbetriq Blood Thinner: none ALLERGIES:SULFAMETHOXAZOLE,TRIMETHOPRIM PVR: 7ml's Stock Parts Fabricator Required: No Accompanied by: Unknown Allergies sulfamethoxazole (From Bactrim) Allergy (Verified 12/11/24 10:46) Rash trimethoprim (From Bactrim) Allergy (Verified 12/11/24 10:46) Rash Medication List - Last Reconciled 12/11/24 by CONSUELO Lyons albuterol sulfate 2.5 mg (3 mL) inhalation Q6H PRN albuterol sulfate 90 mcg/actuation 2 puffs inhalation Q4-6H PRN baclofen 10 mg PO QID [commode As directed] commode (bedside commode) As directed fluticasone propionate 50 mcg/actuation (Flonase Allergy Relief) 1 spray intranasal DAILY fluticasone propionate 220 mcg/actuation 2 puffs inhalation BID furosemide 40 mg PO DAILY lidocaine HCl 2% (Lidocaine Viscous) 1 appl mucous membrane Q4H lisinopril 30 mg PO DAILY loratadine 10 mg PO DAILY menthol-zinc oxide 0.44-20.6 % (Calmoseptine) 1 appl topical QID PRN miconazole nitrate 2% 1 appl topical BID mirabegron ER (Myrbetriq) 50 mg (2 x 25 mg) PO DAILY 90 days miscellaneous medical supply 1 ea miscellaneous DAILY miscellaneous medical supply 1 ea miscellaneous .4xday miscellaneous medical supply 1 ea miscellaneous .4xday miscellaneous medical supply 1 ea miscellaneous DAILY naproxen 500 mg PO BEDTIME nebulizers As directed nystatin 1 appl topical DAILY polyethylene glycol 3350 (Miralax) 17 grams PO DAILY PRN pregabalin 100 mg PO TID 30 days simvastatin 40 mg PO BEDTIME terconazole 0.8% 1 appful vaginal BEDTIME 3 days HPI Comments Details: Rita is a very pleasant 74-year-old [place] Citizen-speaking female patient of Dr. Oconnell who was accompanied by her son at today's visit. She has a past medical history of constipation, bilateral knee pain - followed by [facility] for knee injections, wheelchair bound, hypertension, bilateral leg pain below knee, GERD, depression, anxiety, hyperlipidemia, and asthma. She presents to the office today for follow-up of her overactive bladder and recurrent urinary tract infections. In discussion with the patient today she reports to be doing and feeling well. She reports feeling Myrbetriq 25 mg daily has been helpful as she has been experiencing less episodes of mixed incontinence and feels she is able to make it to the bathroom more frequently without having accidents however she does continue to experience mixed urinary incontinence. Previous urine cultures are as follows: 01/18 Ecoli, 09/19 Ecoli In office urinalysis results reviewed with the patient today. PVR 7 mL. She does report intermittent episodes of constipation and straining with bowel movements. We discussed correlation of constipation with urinary issues. Previous workup has included a retroperitoneal ultrasound 03/19 noting right kidney with no hydronephrosis or renal calculi. Possible invaginating fat versus angiomyolipoma midpole measuring 1.3 x 2.0 x 1.4 cm. Left kidney with no guillermina culi and or hydronephrosis noted. Discussed importance of continuing to practice timed voiding/scheduled toileting given decrease in mobility. When asked she denies hematuria,changes to urinary stream, flank pain, fever, and or chills. She otherwise offers no issues or concerns at this time. [facility] Medical History Hemorrhoids with complication Paraplegia Encounter to establish care History of shingles Cellulitis Asthma Surgical History History of cataract surgery History of partial hysterectomy Status post right foot surgery Family History Mother Heart failure Father Heart attack Other Mental health disorder Substance use disorder Social History Housing: Apartment Alcohol intake: current Alcohol intake frequency: holidays/special occasions only Patient Tobacco Use Status: Never used Tobacco Tobacco use type: Cigarette e-Cigarette/Vaping Use: Never Used Second Hand Smoke Exposure: No service: No Current occupational status: disabled Cognitive needs: Yes (wheelchair) Hearing needs: No Vision needs: Yes Review of Systems Const Reports as per [facility] Eyes Reports no additional complaints ENT Reports no additional complaints Card Reports as per [facility] Resp Reports as per [facility] GI Reports as per [facility] Reports as per [facility] Musc Reports as per [facility] Neuro Reports as per [facility] Psych Reports as per [facility] Physical Exam Const General: cooperative, healthy appearing, comfortable, no acute distress, well developed, alert and awake Orientation/consciousness: patient oriented x3 Limitations: wheelchair HEENT Head: Yes normal to inspection, Yes normocephalic and Yes atraumatic Ears: hearing grossly normal bilaterally Eyes General: appearance normal, both eyes and all related structures Neck Neck: Yes normal visual inspection and Yes trachea midline Chest Chest palpation & inspection: normal inspection of the chest Resp Effort & Inspection: normal respiratory effort and able to speak in complete sentences Cardio Rate: regular rate GI Inspection: Yes normal to inspection General: Yes no CVA tenderness Back/Spine/Pelvis Back: no CVA tenderness Skin General skin exam: no rashes or lesions noted Neuro General: patient oriented x3 Extrem General: Yes normal to inspection Psych Appearance: grossly normal and well kempt Mental Status: mental status grossly normal Speech and movement: Normal speech and movement present and Clear speech present Affect: normal affect Attitude: cooperative Thought process: Normal thought process present Thought content: Normal thought content present Insight: Fair insight present (Psych) Judgement: Fair judgement present (Psych) Office Procedures Post Void Residual Post Residual Void Post Void Residual (PVR): 7 [id number] Void Residual by ultrasound Results AMB Urinalysis, Automated UA Leukoctes 0 Brandan/uL Last Edit by VINH Swanson on 12/11/24 10:30 UA Nitrite Last Edit by VINH Swanson on 12/11/24 10:30 UA Urobilinogen 0.2 mg/dL Last Edit by VINH Swanson on 12/11/24 10:3 0 UA Protein 0 mg/dL Last Edit by VINH Swanson on 12/11/24 10:30 UA pH 6.0 Last Edit by VINH Swanson on 12/11/24 10:30 UA Blood 10 Ryan/uL Last Edit by Raizaruthie Suedeirdre [facility] on 12/11/24 10:30 UA Specific [place] 1.010 Last Edit by Vicente Linettedeirdre [facility] on 12/11/24 10: 30 UA Ketone Last Edit by Vicente Linettedeirdre, [facility] on 12/11/24 10:30 UA Bilirubin 0 mg/dL Last Edit by Suryadeniceruthie Suedeirdre [facility] on 12/11/24 10:30 UA Glucose 0 mg/dL Last Edit by Suryadeniceruthie Suedeirdre [facility] on 12/11/24 10:30 Results Reviewed Results Reviewed: Laboratory Last Values Urine pH (Auto) 6.0 12/11/24 10:29 Specific [place] (Auto) 1.010 12/11/24 10:29 Urine Protein (Auto) 0 mg/dL 12/11/24 10:29 Glucose (UA)(Auto) 0 mg/dL 12/11/24 10:29 Urine Blood (Auto) 10 Ryan/uL 12/11/24 10:29 Urine Bilirubin (Auto) 0 mg/dL 12/11/24 10:29 Urine Urobilinogen (Auto) 0.2 mg/dL 12/11/24 10:29 Leukocyte Esterase (Auto) 0 Brandan/uL 12/11/24 10:29 Assessment & Plan Assessment & Plan (1) Urinary incontinence: Code(s): R32 - Unspecified urinary incontinence Category: Medical (2) Overactive bladder: Code(s): N32.81 - Overactive bladder Category: Medical (3) Microhematuria: Code(s): R31.29 - Other microscopic hematuria Category: Medical Plan In office urinalysis results with the patient today; as noted above. PVR 7 mL. Will increase Myrbetriq to 50 mg a day She currently denies any UTI like symptoms. She reports significant improvement in episodes of mixed urinary incontinence with minimal episodes. Will continue with surveillance monitoring. We did discussed the importance of continuing to perform timed/scheduled voiding given decreased mobility. Follow-up in 3 months with PVR; or sooner with any issues, concerns, and or questions Orders: Orders AMB Urinalysis Automated Today Z13.9 - Encounter for screening, unspecified AMB Post Void Residual by ultrasound Today N39.0 - Urinary tract infection, site not specified Urine Cytology Today R31.29 - Other microscopic hematuria Medications: Changed From mirabegron ER (Myrbetriq) 25 mg PO DAILY 90 tabs 3RF 90 days N30.10 - Interstitial cystitis (chronic) without hematuria, N32.81 - Overactive bladder, R35.1 - Nocturia, R39.15 - Urgency of urination To mirabegron ER (Myrbetriq) this is an increase in the dose 50 mg (2 x 25 mg) PO DAILY 180 tabs 3RF 90 days N30.10 - Interstitial cystitis (chronic) without hematuria, N32.81 - Overactive bladder, R35.1 - Nocturia, R39.15 - Urgency of urination Patient Instructions: The patient had an opportunity to ask questions regarding the treatment plan. All questions were answered. Physical exam, labs, and imaging were discussed and reviewed in detail. As well as risks, benefits, and discussion of treatment choices. No major barriers to understanding were identified. The patient expressed understanding and agreement with the above treatment plan. The patient was made aware they should contact our office by phone for worsening of their current condition, the appearance of new symptoms, or with any questions or concerns. Compliance is encouraged with any medications and follow up testing that is ordered. It is a privilege to be allowed the opportunity to participate in? your urological care.? Again, if you have any questions or concerns If you have any questions or concerns please do not hesitate to contact me. The office is [phone]. This note is constructed using voice recognition software. While every effort has been made to ensure accuracy vat skimmer errors may have been included. Yours sincerely, EULA Lyons Coding Level of Care Code Est Pt Level 3 (04279) Complex EM visit Add On G2211 Diagnoses Urinary incontinence R32 Overactive bladder N32.81 Microhematuria R31.29 CPT Codes Post Residual Void - PVR CPT Code: 32719-Hxoa Void Residual by ultrasound ([id number])
== END 2024-12-11 10:31 | disposition home or self-care (01) ==
LOC: HO.HUSH 09:40
PROVIDERS: PCP Nurse Practitioner Family; Visit Provider Nurse Practitioner Family
DX: R32 Unspecified urinary incontinence (principal); N32.81 Overactive bladder; R31.29 Other microscopic hematuria; Z13.9 Encounter for screening, unspecified
CPT/HCPCS: 99213; G2211

== ENCOUNTER 2024-12-11 09:39 | Outpatient (REF) | payer OTHER, SELFPAY | END 2024-12-11 09:40 | disposition home or self-care (01) | LOC: HO.LAB 09:39 | PROVIDERS: PCP Nurse Practitioner Family; Visit Provider Nurse Practitioner Family | DX: N30.11 Interstitial cystitis (chronic) with hematuria (principal); N32.81 Overactive bladder; R32 Unspecified urinary incontinence; Z13.9 Encounter for screening, unspecified; K59.00 Constipation, unspecified; R35.1 Nocturia; R39.15 Urgency of urination; Z79.899 Other long term (current) drug therapy; Z79.51 Long term (current) use of inhaled steroids | CPT/HCPCS: 51798; 81003; 88112; 99212 ==

== ENCOUNTER 2025-01-20 10:05 | Outpatient (AMB) | payer OTHER, SELFPAY ==
--- NOTE | 2025-01-20 10:34 | MHC.OFFVIS ---
Vital Signs 01/20/25 10:35 Height 5 ft 1 in BP 118/68 Blood Pressure Location Rt brachial Position Sitting Pulse 66 Pulse Source Pulse Oximeter Pulse Oximetry (%) 96 Oxygen Delivery Method Room Air Intake Visit Reasons: 6 mnts f/u appt Intake Note: Patient presents 6 month follow up for Muscle spasms of lower extremity Commercial Or Institutional Cleaner Required: Yes Commercial Or Institutional Cleaner Services: Commercial Or Institutional Cleaner Offered & Declined Commercial Or Institutional Cleaner Name: Son to interpret - Franko Accompanied by: Son Allergies sulfamethoxazole (From Bactrim) Allergy (Verified 01/20/25 10:34) Rash trimethoprim (From Bactrim) Allergy (Verified 01/20/25 10:34) Rash Medication List - Last Reconciled 01/20/25 by DYLAN Hatch albuterol sulfate 2.5 mg (3 mL) inhalation Q6H PRN albuterol sulfate 90 mcg/actuation 2 puffs inhalation Q4-6H PRN baclofen 10 mg PO QID [commode As directed] commode (bedside commode) As directed fluticasone propionate 220 mcg/actuation 2 puffs inhalation BID fluticasone propionate 50 mcg/actuation (Flonase Allergy Relief) 1 spray intranasal DAILY furosemide 40 mg PO DAILY lidocaine HCl 2% (Lidocaine Viscous) 1 appl mucous membrane Q4H lisinopril 30 mg PO DAILY loratadine 10 mg PO DAILY menthol-zinc oxide 0.44-20.6 % (Calmoseptine) 1 appl topical QID PRN miconazole nitrate 2% 1 appl topical BID mirabegron ER (Myrbetriq) 50 mg (2 x 25 mg) PO DAILY 90 days miscellaneous medical supply 1 ea miscellaneous DAILY miscellaneous medical supply 1 ea miscellaneous .4xday miscellaneous medical supply 1 ea miscellaneous .4xday miscellaneous medical supply 1 ea miscellaneous DAILY naproxen 500 mg PO BEDTIME nebulizers As directed nystatin 1 appl topical DAILY polyethylene glycol 3350 (Miralax) 17 grams PO DAILY PRN pregabalin 100 mg PO TID 30 days simvastatin 40 mg PO BEDTIME terconazole 0.8% 1 appful vaginal BEDTIME 3 days HPI Comments Details: 74-yr-old female presents for 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 Pt is accompanied by her son. Patient reports that she has been having bothersome lower extremity discomfort, which is exacerbated by BLE swelling. She continues to have bilateral lower extremity weakness, numbness, leg spasms. She is trying to elevate her legs as tolerated. She continues to be essentially wheelchair-bound, eating more assists with transfers The pregabalin helps, but you may wake up night when increase leg discomfort. 07/23/2024, previous HPI: Patient and son report that patient is overall stable. Feel that increase pregabalin has been helpful for her lower extremity pain. She continues to have bilateral lower extremity weakness, numbness, leg spasms, however they do not feel that this has progressed. Family continues to help patient with all mobility, again they do not feel that a transfer device would be helpful due to patient having urinary urgency. They are not currently is interested in being referred back to PT or OT. They have not yet had genetics counseling appointment. Labs from late December 2023 indicated ESR of 34 and elevated CRP greater than 20. ESR and CRP suggested inflammation. CBC, CMP, and A1c were normal. Vitamin B12 was low normal at 402 pg/mL, ferritin was 87. Protein to creatinine ratio showed proteinuria at 182, possibly related to UTIs. Nephrology suspected transient proteinuria from UTIs. Recurrent UTIs have persisted. UA on follow-up showed no proteinuria. Ferritin level under 100 may contribute to restlessness; patient declined iron supplementation. Follow-up HPI 01/10/2024: BLE EMG/NCS showed BLE chronic, symmetric, axonal and motor neuropathy, concerning for a hereditary neuropathy. Pt's has strong family h/o of similar s/s, especially in the females. Her dtr has started to develop weakness. She continues to have BLE weakness, numbness, leg spasms a/w jolts of pain. She denies any numbness/weakness/paresthesias in her arms. She spends most of her day in a recliner. Her son assists her with all mobility- sometimes pt's legs give out so cannot self-transfer. They had tried to use a transfer lift- but was not helpful as pt can have urinary urgency. States Baclofen 10mg qid (between ~6am and 7pm- the hours she is OOB and Pregagablin 100mg bid help some. Tizanidine previously helped a bit better than baclofen- but caused sleepiness and was told she could not take both together. She did not have b-12 level checked yet. BLE EMG/NCS: IMPRESSION: 1. This is an abnormal study. 2. 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 Consider genetic testing of patient and daughter. [facility] Medical History (Updated 01/20/25 @ 11:08 by DYLAN Hatch) Anemia Hemorrhoids with complication Paraplegia Encounter to establish care History of shingles Cellulitis Asthma Surgical History History of cataract surgery History of partial hysterectomy Status post right foot surgery Family History Mother Heart failure Father Heart attack Other Mental health disorder Substance use disorder Social History Housing: Apartment Alcohol intake: current Alcohol intake frequency: holidays/special occasions only Patient Tobacco Use Status: Never used Tobacco Tobacco use type: Cigarette e-Cigarette/Vaping Use: Never Used Second Hand Smoke Exposure: No service: No Current occupational status: disabled Cognitive needs: Yes (wheelchair) Hearing needs: No Vision needs: Yes Physical Exam Vital Signs: Last Vital Signs Pulse 66 01/20/25 10:35 BP 118/68 01/20/25 10:35 Pulse Ox 96 01/20/25 10:35 Oxygen Delivery Method Room Air 01/20/25 10:35 Const General: cooperative and no acute distress Orientation/consciousness: patient oriented x3 HEENT Head: Yes normocephalic Resp Effort & Inspection: normal respiratory effort and able to speak in complete sentences Neuro Other: BLE weakness- more so on left. BLE decreased light touch sensation. 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 Son at bedside. Patient has AIRLINE RESERVATION AGENT which is the patient's son. Daughter also has spastic paraparesis. Patient 1 person assist for transfer. Utilizes brief and a commode. (4) Leg cramps: Code(s): R25.2 - Cramp and spasm Category: Medical Plan Previous 09/28/2023 BLE EMG/NCS: chronic, distal, symmetric, primarily axonal and motor, polyneuropathy We have discontinued genetics consult to assess for hereditary forms of polyneuropathy, as patient has declined. Request PT eval and treat for strengthening/stretching, mobility, positioning in setting of paraplegia with BLE swelling, cramps, paresthesia. Check follow-up labs Continue Baclofen 10mg qid. Continue Pregabalin 100mg tid- for leg spasms and associated pains. Discussed adding/adjusting pregabalin dose to 100 mg in a.m. and 25-50 mg 2-3 hours before bed, and 100 mg at bedtime-however patient would like to hold at this time. Follow-up upon review of above and in 6 months or sooner prn. Orders: Orders Complete Blood Count Auto Diff 01/20/25 D64.9 - Anemia, unspecified, G62.9 - Polyneuropathy, unspecified, I10 - Essential (primary) hypertension, R25.2 - Cramp and spasm, R60.0 - Localized edema Ferritin 01/20/25 D64.9 - Anemia, unspecified, G62.9 - Polyneuropathy, unspecified, I10 - Essential (primary) hypertension, R25.2 - Cramp and spasm, R60.0 - Localized edema Vitamin B12 and Folate 01/20/25 D64.9 - Anemia, unspecified, G62.9 - Polyneuropathy, unspecified, I10 - Essential (primary) hypertension, R25.2 - Cramp and spasm, R60.0 - Localized edema Vitamin B1 01/20/25 D64.9 - Anemia, unspecified, E51.9 - Thiamine deficiency, unspecified, G62.9 - Polyneuropathy, unspecified, I10 - Essential (primary) hypertension, R25.2 - Cramp and spasm, R60.0 - Localized edema Vitamin B6 01/20/25 D64.9 - Anemia, unspecified, G62.9 - Polyneuropathy, unspecified, I10 - Essential (primary) hypertension, R25.2 - Cramp and spasm, R60.0 - Localized edema Methylmalonic Acid 01/20/25 D64.9 - Anemia, unspecified, G62.9 - Polyneuropathy, unspecified, I10 - Essential (primary) hypertension, R25.2 - Cramp and spasm, R60.0 - Localized edema Lyme IgG/IgM w/reflex to WB 01/20/25 D64.9 - Anemia, unspecified, G62.9 - Polyneuropathy, unspecified, I10 - Essential (primary) hypertension, R25.2 - Cramp and spasm, R60.0 - Localized edema Comprehensive Lyons. Panel Fast 01/20/25 D64.9 - Anemia, unspecified, G62.9 - Polyneuropathy, unspecified, I10 - Essential (primary) hypertension, R25.2 - Cramp and spasm, R60.0 - Localized edema IRON PROFILE 01/20/25 D64.9 - Anemia, unspecified, G62.9 - Polyneuropathy, unspecified, I10 - Essential (primary) hypertension, R25.2 - Cramp and spasm, R60.0 - Localized edema Homocysteine 01/20/25 D64.9 - Anemia, unspecified, G62.9 - Polyneuropathy, unspecified, I10 - Essential (primary) hypertension, R25.2 - Cramp and spasm, R60.0 - Localized edema Magnesium 01/20/25 D64.9 - Anemia, unspecified, G62.9 - Polyneuropathy, unspecified, I10 - Essential (primary) hypertension, R25.2 - Cramp and spasm, R60.0 - Localized edema [facility]errals [facility] Referral G62.9 - Polyneuropathy, unspecified, M25.561 - Pain in right knee, M25.562 - Pain in left knee, M79.604 - Pain in right leg, M79.605 - Pain in left leg, R60.0 - Localized edema, Z99.3 - Dependence on wheelchair Coding Level of Care Code Est Pt Level 4 (57809) Diagnoses Peripheral polyneuropathy G62.9 Muscle spasms of lower extremity M62.838 Paraplegia G82.20 Leg cramps R25.2
[2025-01-20 10:35] VITALS: BP 118/68; PULSE 66; O2SAT 96
== END 2025-01-20 11:13 | disposition home or self-care (01) ==
LOC: HO.HSMS 10:06
PROVIDERS: PCP Nurse Practitioner Family; Visit Provider Nurse Practitioner Family
DX: G62.9 Polyneuropathy, unspecified (principal); M62.838 Other muscle spasm; G82.20 Paraplegia, unspecified; R25.2 Cramp and spasm
CPT/HCPCS: 99214

== ENCOUNTER → 2025-01-20 10:05 | Outpatient (BNVA) | payer OTHER, SELFPAY | PROVIDERS: PCP Nurse Practitioner Family; Visit Provider Nurse Practitioner Family | DX: M62.838 Other muscle spasm (principal); G62.9 Polyneuropathy, unspecified; G82.20 Paraplegia, unspecified | CPT/HCPCS: 99212 ==

== ENCOUNTER 2025-02-16 07:35 | Outpatient (REF) | payer OTHER, SELFPAY ==
[2025-02-16 08:17] LABS: MANUAL DIFF FLAG NO
[2025-02-16 08:36] LABS: Hematocrit 41.3 % (37.0-47.0); Hemoglobin 13.4 g/dl (12.0-16.0); Imm Gran Abs Auto 0.06 X10*3/uL (0.00-0.03); Imm Gran Pct Auto 0.8 % (0.0-0.4); Lymphocytes Absolute Auto 1.9 X10*3/uL (1.2-4.9); Mean Corpuscular HGB Conc 32.4 g/dl (31.0-35.0); Mean Corpuscular Hemoglobin 28.6 pg (27.0-33.0); Mean Corpuscular Volume 88.1 fL (80.0-98.0); NRBC Abs Auto 0.000 X10*3/uL (0.0-0.012); NRBC Pct Auto 0.0 /100WBC (0.0-0.2); Platelet Count 250 X10*3/uL (160-400); Red Blood Count 4.69 X10*6/uL (4.20-5.50); White Blood Count 7.7 X10*3/uL (4.8-10.8)
[2025-02-16 09:37] LABS: Alanine Aminotransferase 15 U/L (0-31); Albumin Level 4.4 g/dL (3.5-5.0); Alkaline Phosphatase 89 U/L (39-117); Anion Gap 10 (12-20); Aspartate Amino Transferase 18 U/L (5-31); Blood Urea Nitrogen 16 mg/dL (9-16); Calcium 9.6 mg/dL (8.4-10.2); Carbon Dioxide 28 mmol/L (22-29); Chloride 106 mmol/L (96-108); Estimated Glomerular Filt Rate > 60; Iron 54 mcg/dL (30-160); Magnesium 2.2 mg/dL (1.6-2.6); Percent Iron Saturation 17 % (15-50); Potassium 4.1 mmol/L (3.3-5.1); Sodium 140 mmol/L (135-145); Total Iron Binding Capacity 311 mcg/dL (228-428); Total Protein 7.3 g/dL (6.5-8.0); Unsaturated Iron Binding 257 ug/dL
[2025-02-16 09:56] LABS: Ferritin 59 ng/mL (10-250)
[2025-02-16 09:59] LABS: Folate 7.0 ng/mL (> or = 4.0); Vitamin B12 336 pg/mL (200-900)
[2025-02-17 17:23] LABS: Lyme Abs Screen <0.90 index
== END 2025-02-16 07:36 | disposition home or self-care (01) ==
LOC: HO.LAB 07:35
PROVIDERS: PCP Internal Medicine; Visit Provider Nurse Practitioner Family
DX: Z01.84 Encounter for antibody response examination (principal); I10 Essential (primary) hypertension; G62.9 Polyneuropathy, unspecified; E51.9 Thiamine deficiency, unspecified; D64.9 Anemia, unspecified; R60.0 Localized edema; R25.2 Cramp and spasm
CPT/HCPCS: 36415; 80053; 82607; 82728; 82746; 83090; 83540; 83735; 83921; 84207; 84425; 85025; 86617; 86618

== ENCOUNTER 2025-02-17 09:11 | Outpatient (REF) | payer OTHER, SELFPAY | END 2025-02-17 09:12 | disposition home or self-care (01) | LOC: HO.LNP 09:11 | PROVIDERS: Visit Provider Physician Assistant | DX: M17.0 Bilateral primary osteoarthritis of knee (principal); I10 Essential (primary) hypertension | CPT/HCPCS: 20610; 81003; 99212; J0665; J1100; J2003 ==

== ENCOUNTER 2025-02-17 09:11 | Outpatient (AMB) | payer OTHER, SELFPAY ==
--- NOTE | 2025-02-17 09:24 | MHC.OFFVIS ---
Intake Visit Reasons: Inj-B/L knee OA, (80) last inj 11/14/24 Intake Note: Rita is a 74 year old female who presents today in a wheelchair for a repeat injection for her bilateral knees, last injections 11/14/24. Patient reports her last injections gave her relief and she would like to repeat. Allergies sulfamethoxazole (From Bactrim) Allergy (Verified 02/17/25 09:40) Rash trimethoprim (From Bactrim) Allergy (Verified 02/17/25 09:40) Rash HPI HPI Inj-B/L knee OA, (80) last inj 11/14/24: Details: Ms. Fabby Glez this is a 74-year-old female who presents to the office today for chronic bilateral knee osteoarthritis. Her last cortisone injection was on 11/14/2024 which gave her some relief. She is looking to repeat injections while in the office today. She is primarily wheelchair bound and is accompanied in the office today by her son. [facility] Medical History (Updated 01/20/25 @ 11:08 by DYLAN Hatch) Anemia Hemorrhoids with complication Paraplegia Encounter to establish care History of shingles Cellulitis Asthma Surgical History History of cataract surgery History of partial hysterectomy Status post right foot surgery Family History Mother Heart failure Father Heart attack Other Mental health disorder Substance use disorder Social History Housing: Apartment Alcohol intake: current Alcohol intake frequency: holidays/special occasions only Patient Tobacco Use Status: Never used Tobacco Tobacco use type: Cigarette e-Cigarette/Vaping Use: Never Used Second Hand Smoke Exposure: No service: No Current occupational status: disabled Cognitive needs: Yes (wheelchair) Hearing needs: No Vision needs: Yes Review of Systems Const All systems reviewed & are unremarkable except as noted in HPI and below Physical Exam Const General: cooperative, healthy appearing and no acute distress Resp Effort & Inspection: normal respiratory effort and able to speak in complete sentences Extrem Other: Bilateral knees: Normal to inspection. No ecchymosis, erythema, or joint effusion. Extension to about 40 degrees. Flexion to 80 degrees. Global tenderness to palpation. Unable to assess Radha's or anterior drawer. NVI. Psych Appearance: grossly normal Mental Status: mental status grossly normal Attitude: cooperative Office Procedures AMB Joint Injection/Aspiration Joint Injection/Aspiration Primary Site: right knee Secondary Site: left knee Injected: 40 mg of, with 3 mL of, 1% plain lidocaine, 0.25% bupivacaine, in the joint and decadron Approach Used: anterolateral Procedure: The patient tolerated the procedure well, but had some pain with the injection and there was some relief with the local anesthesia Coding - Bilateral Large Joint Procedure code (CPT) selection complete Assessment & Plan Assessment & Plan (1) Osteoarthritis of knees, bilateral: Code(s): M17.0 - Bilateral primary osteoarthritis of knee Category: Medical Qualifiers: Osteoarthritis type: unspecified Qualified Code(s): M17.0 - Bilateral primary osteoarthritis of knee Plan The patient was offered cortisone injections in bilateral knees. The patient was explained the risks, benefits, and alternatives to receiving this injection. After receiving consent for the injection, the patient had the procedure done while in the office today. The patient tolerated the procedure well with no complications. Follow-up will be PRN, or sooner if needed Coding Level of Care Code Est Pt Level 3 (67409) Diagnoses Osteoarthritis of both knees, unspecified osteoarthritis type M17.0 Osteoarthritis type: unspecified CPT Codes Coding - - Bilateral Large Joint: 44920 - Bilateral Large Joint ([id number])
== END 2025-02-17 09:54 | disposition home or self-care (01) ==
LOC: HO.HOS 09:12
PROVIDERS: PCP Nurse Practitioner Family; Visit Provider Physician Assistant
DX: M17.0 Bilateral primary osteoarthritis of knee (principal)
CPT/HCPCS: 20610; 99213

== ENCOUNTER 2025-03-17 11:38 | Outpatient (AMB) | payer OTHER, SELFPAY ==
--- NOTE | 2025-03-17 11:51 | A.OFFVIS_ITS ---
Intake Visit Reasons: 3m/PVR Intake Note: Patient is present for 3M/PVR Urology Medication:VITAMIN B6, Antibiotic Allergy:SULFA,BACTRIM Blood Thinner:NONE Last PVR:7ML'S Todays PVR:16ML'S Flower Stripper Required: No Flower Stripper Name: Spencer dao Allergies sulfamethoxazole (From Bactrim) Allergy (Verified 03/17/25 14:56) Rash trimethoprim (From Bactrim) Allergy (Verified 03/17/25 14:56) Rash Medication List - Last Reconciled 03/17/25 by DYLAN Lyons- albuterol sulfate 2.5 mg (3 mL) inhalation Q6H PRN albuterol sulfate 90 mcg/actuation 2 puffs inhalation Q4-6H PRN baclofen 10 mg PO QID [commode As directed] commode (bedside commode) As directed fluconazole 150 mg PO Q3D 2 doses fluticasone propionate 220 mcg/actuation 2 puffs inhalation BID fluticasone propionate 50 mcg/actuation (Flonase Allergy Relief) 1 spray intranasal DAILY lidocaine HCl 2% (Lidocaine Viscous) 1 appl mucous membrane Q4H lisinopril 30 mg PO DAILY loratadine 10 mg PO DAILY menthol-zinc oxide 0.44-20.6 % (Calmoseptine) 1 appl topical QID PRN miconazole nitrate 2% 1 appl topical BID mirabegron ER (Myrbetriq) 50 mg (2 x 25 mg) PO DAILY 90 days miscellaneous medical supply 1 ea miscellaneous DAILY miscellaneous medical supply 1 ea miscellaneous .4xday miscellaneous medical supply 1 ea miscellaneous .4xday miscellaneous medical supply 1 ea miscellaneous DAILY naproxen 500 mg PO BEDTIME nebulizers As directed nystatin 1 appl topical DAILY polyethylene glycol 3350 (Miralax) 17 grams PO DAILY PRN pregabalin 100 mg PO TID 30 days pyridoxine (vitamin B6) 25 mg PO DAILY 90 days simvastatin 40 mg PO BEDTIME terconazole 0.8% 1 appful vaginal BEDTIME 3 days HPI Comments Details: Rita is a very pleasant 75 year-old Peruvian-speaking female patient of Dr. Oconnell who was accompanied by her son at today's visit. She has a past medical history of constipation, bilateral knee pain - followed by [place] [facility] for knee injections, wheelchair bound, hypertension, bilateral leg pain below knee, GERD, depression, anxiety, hyperlipidemia, and asthma. She presents to the office today for follow-up of her overactive bladder and recurrent urinary tract infections. In discussion with the patient today she reports to be doing and feeling well. She reports feeling Myrbetriq 25 mg daily has been helpful as she has been experiencing less episodes of mixed incontinence and feels she is able to make it to the bathroom more frequently without having accidents however she does continue to experience mixed urinary incontinence. Previous urine cultures are as follows: 01/18 Ecoli, 09/19 Ecoli Unable to obtain urine for urinalysis as patient unable to void however PVR 16 mL. She does report intermittent episodes of constipation and straining with bowel movements. We discussed correlation of constipation with urinary issues. Previous workup has included a retroperitoneal ultrasound 03/19 noting right kidney with no hydronephrosis or renal calculi. Possible invaginating fat versus angiomyolipoma midpole measuring 1.3 x 2.0 x 1.4 cm. Left kidney with no calculi and or hydronephrosis noted. Discussed importance of continuing to practice timed voiding/scheduled toileting given decrease in mobility. When asked she denies hematuria,changes to urinary stream, flank pain, fever, and or chills. She otherwise offers no issues or concerns at this time. [facility] Medical History Anemia Hemorrhoids with complication Paraplegia Encounter to establish care History of shingles Cellulitis Asthma Surgical History History of cataract surgery History of partial hysterectomy Status post right foot surgery Family History Mother Heart failure Father Heart attack Other Mental health disorder Substance use disorder Social History Housing: Apartment Alcohol intake: current Alcohol intake frequency: holidays/special occasions only Patient Tobacco Use Status: Never used Tobacco Tobacco use type: Cigarette e-Cigarette/Vaping Use: Never Used Second Hand Smoke Exposure: No service: No Current occupational status: disabled Cognitive needs: Yes (wheelchair) Hearing needs: No Vision needs: Yes Review of Systems Const Reports as per [facility] Eyes Reports no additional complaints ENT Reports no additional complaints Card Reports as per [facility] Resp Reports as per [facility] GI Reports as per [facility] Reports as per [facility] Musc Reports as per [facility] Neuro Reports as per [facility] Psych Reports as per [facility] Physical Exam Const General: cooperative, healthy appearing, comfortable, no acute distress, well developed, alert and awake Orientation/consciousness: patient oriented x3 Limitations: language barrier and wheelchair HEENT Head: Yes normal to inspection, Yes normocephalic and Yes atraumatic Ears: hearing grossly normal bilaterally Eyes General: appearance normal, both eyes and all related structures Neck Neck: Yes normal visual inspection and Yes trachea midline Chest Chest palpation & inspection: normal inspection of the chest Resp Effort & Inspection: normal respiratory effort and able to speak in complete sentences Cardio Rate: regular rate GI Inspection: Yes normal to inspection General: Yes no CVA tenderness Back/Spine/Pelvis Back: no CVA tenderness Skin General skin exam: no rashes or lesions noted Neuro General: patient oriented x3 Extrem General: Yes normal to inspection Psych Appearance: grossly normal and well kempt Mental Status: mental status grossly normal Speech and movement: Normal speech and movement present and Clear speech present Affect: normal affect Attitude: cooperative Thought process: Normal thought process present Thought content: Normal thought content present Insight: Fair insight present (Psych) Judgement: Fair judgement present (Psych) Office Procedures Post Void Residual Post Residual Void Post Void Residual (PVR): 16 86085-[place]bad Void Residual by ultrasound Assessment & Plan Assessment & Plan (1) Microhematuria: Code(s): R31.29 - Other microscopic hematuria Category: Medical (2) Urinary incontinence: Code(s): R32 - Unspecified urinary incontinence Category: Medical (3) Overactive bladder: Code(s): N32.81 - Overactive bladder Category: Medical (4) Urinary tract infection: Code(s): N39.0 - Urinary tract infection, site not specified Category: Medical Plan Unable to obtain urine for urinalysis today as patient unable to void however PVR 7 mL. Will recent prescription for increase in Myrbetriq as patient never received the increase in dosage Prescription provided for Diflucan as requested. Patient reports feeling lower urinary tract symptoms have been manageable and significantly improved however she does continue to experience mixed urinary incontinent episodes. Will continue with surveillance monitoring.. We did discussed potential causes of lower urinary tract symptoms as well as further treatment options and risks and benefits of these treatment options however patient reports be happy with current management. Follow-up in 3 months with PVR; or sooner with any issues, concerns, and or questions. Medications: New fluconazole 150 mg PO Q3D 2 tabs 0RF 2 doses Refilled mirabegron ER (Myrbetriq) this is an increase in the dose 50 mg (2 x 25 mg) PO DAILY 180 tabs 3RF 90 days N30.10 - Interstitial cystitis (chronic) without hematuria, N32.81 - Overactive bladder, R35.1 - Nocturia, R39.15 - Urgency of urination Patient Instructions: The patient had an opportunity to ask questions regarding the treatment plan. All questions were answered. Physical exam, labs, and imaging were discussed and reviewed in detail. As well as risks, benefits, and discussion of treatment choices. No major barriers to understanding were identified. The patient expressed understanding and agreement with the above treatment plan. The patient was made aware they should contact our office by phone for worsening of their current condition, the appearance of new symptoms, or with any questions or concerns. Compliance is encouraged with any medications and follow up testing that is ordered. It is a privilege to be allowed the opportunity to participate in? your urological care.? Again, if you have any questions or concerns If you have any questions or concerns please do not hesitate to contact me. The office is [phone]. This note is constructed using voice recognition software. While every effort has been made to ensure accuracy refrigeration manager errors may have been included. Yours sincerely, EULA Lyons Coding Level of Care Code Est Pt Level 3 (51310) Complex EM visit Add On G2211 Diagnoses Microhematuria R31.29 Urinary incontinence R32 Overactive bladder N32.81 Urinary tract infection N39.0 CPT Codes Post Residual Void - PVR CPT Code: 53943-Kyrd Void Residual by ultrasound ([id number])
--- OUTSIDE RECORDS SUMMARY | 2025-03-17 15:11 | XMS_ITS | Data Portability ---
Author Organization [place] [facility] Address [address] [place] [id number] Care Team Providers Care Tin Stacker Name Role Phone [facility] Primary Care Provider Assessment Encounter [...] after care of this patient according to [facility]'s infection prevention protocols. The patient was advised to go to the ED for evaluation The patient, son and daughter understood and agreed with this plan. All questions were answered prior to DH team departure, EMD arrived, handoff was given and pt was taken to [facility] for further evaluation and treatment. [email or web address] Not available 03/31/2020 19:09:41 Plan of Treatment [...] Hysterectomy /bladder repair completed Esmer Mckeon NP [address] [place] [address], [id number], [place] [facility] 03/31/2020 14:42:40 Imaging Results None recorded. Procedure [...] Not Available N ot Available Fluad Quad [id number](6 5yr up)(PF) 60 mcg (15 mcg x [...] Smoker Esmer Mckeon, BUFFY [address], [place], [address], [place] [facility] 03/31/2020 18:38:41 What Is Your Code Status? Full Code Information not available 03/31/2020 Within The Past 12 Months, Has It Happened That The Food You Bought Just Didn't Last And You Didn't Have Money To Get More. No [email or web address] Information not available 03/31/2020 Within The Past 12 Months, Have You Worried That Your Food Would Run Out Before You Got Money To Buy More. No Information not available 03/31/2020 Fall Risk: Do You Feel Unsteady When Standing Or Walking? Yes [email or web address] Information not available 03/31/2020 We Know That How And When People Interact With Friends And Family Can Be Very Different From Person To Person. How Often Do You Have The Opportunity To See Or Talk To People That You Care About And Feel Close To? (Ex: Talking To Friends On The Phone Or Visiting Friends Or Family Or Going To Shinto Or Club Meetings) 5 Or More Times Per Week Information not available 03/31/2020 We Know From Many Of Our Patients That Covering All Of Their Costs Can Be Difficult At Times. This Can Cause Stress And Impact Health. In The Past Year, Have You Been Unable To Get Any Of The Following When It Was Really Needed? No [email or web address] Information not available 03/31/2020 What Is Your Housing Situation Today? I Have Housing [email or web address] Information not available 03/31/2020 Would You Like Help Connecting To Resources? None [email or web address] Information not available 03/31/2020 Sex: Unknown Functional [...] Diagnosis SNOMED-CT Code Diagnosis ICD10 Code Diagnosis IMO Codes Diagnosis Note [id number] Esmer Mckeon NP [facility] [address] [facility] [id number] 03/31/2020 14:37:20 04/01/2020 17:37:21 Herpes zoster [id number] B02.9 Pain in le ft lower limb [id number] M79.605 Health Concerns Section Related Observation LastModified by Organization Detai ls LastModified Time None Recorded Concern Status LastModified by Organization Details LastModified Time None Recorded Advance Directives Directive None Recorded Payers Insurance Date Sequence Insurance Name Policy Number Policy Carballo Covered Member ID Carballo Member ID Guarantor Name 03/31/2020 1 *SELF PAY* Rita Sequeira [id number] Rita Sequeira 03/31/2020 1 [facility] - DOS PRIOR TO 2022 - DUAL ELIGIBLE (MEDICARE REPLACEMENT/ADV ANTAGE - HMO) Rita Sequeira [id number] Rita Sequeira Notes Date Note Type Note [...] this am. Her son Franko is her manager call center and provides care 18/12. She is belizean speaking only- Franko translates. Esmer Mckeon NP [address], [place], [address], [place] [facility] 03/31/2020 20:05:40 OBGyn Episode No OBEpisode recorded.
== END 2025-03-17 12:30 | disposition home or self-care (01) ==
LOC: HO.HUSH 11:39
PROVIDERS: PCP Nurse Practitioner Family; Visit Provider Nurse Practitioner Family
DX: R31.29 Other microscopic hematuria (principal); R32 Unspecified urinary incontinence; N32.81 Overactive bladder; N39.0 Urinary tract infection, site not specified
CPT/HCPCS: 99213; G2211

== ENCOUNTER → 2025-03-17 11:38 | Outpatient (BNVA) | payer OTHER, SELFPAY | PROVIDERS: PCP Nurse Practitioner Family; Visit Provider Nurse Practitioner Family | DX: N32.81 Overactive bladder (principal); R31.29 Other microscopic hematuria; R32 Unspecified urinary incontinence; N39.0 Urinary tract infection, site not specified; R35.1 Nocturia | CPT/HCPCS: 51798; 99212 ==

== ENCOUNTER 2025-05-26 09:01 | Outpatient (AMB) | payer OTHER, SELFPAY ==
--- NOTE | 2025-05-26 09:13 | A.OFFVIS_ITS ---
Intake Visit Reasons: B/L knee injections, last inj 02/17/25 Intake Note: Rita is a 75 year old female who presents today in a wheelchair for a repeat injection for her bilateral knees, last injections 02/17/25. Patient reports her last injections gave her relief and would like to repeat. Allergies sulfamethoxazole (From Bactrim) Allergy (Verified 05/26/25 09:34) Rash trimethoprim (From Bactrim) Allergy (Verified 05/26/25 09:34) Rash HPI HPI B/L knee injections, last inj 02/17/25: Details: The patient is a 75-year-old female who presents to the office today in a wheelchair for bilateral knee chronic pain. Patient is nonambulatory at baseline. She received cortisone injections in both knees last on 02/17/2025 which gave her some relief. She is looking to repeat injections while in the office today. [facility] Medical History Anemia Hemorrhoids with complication Paraplegia Encounter to establish care History of shingles Cellulitis Asthma Surgical History History of cataract surgery History of partial hysterectomy Status post right foot surgery Family History Mother Heart failure Father Heart attack Other Mental health disorder Substance use disorder Social History Housing: Apartment Alcohol intake: current Alcohol intake frequency: holidays/special occasions only Patient Tobacco Use Status: Never used Tobacco Tobacco use type: Cigarette e-Cigarette/Vaping Use: Never Used Second Hand Smoke Exposure: No service: No Current occupational status: disabled Cognitive needs: Yes (wheelchair) Hearing needs: No Vision needs: Yes Review of Systems Const All systems reviewed & are unremarkable except as noted in HPI and below Physical Exam Const General: cooperative, healthy appearing and no acute distress Resp Effort & Inspection: normal respiratory effort and able to speak in complete sentences Extrem Other: Bilateral knees: Normal to inspection. No ecchymosis, erythema, or joint effusion. Extension to about 40 degrees. Flexion to 80 degrees. Global tenderness to palpation. Unable to assess Radha's or anterior drawer. NVI. Psych Appearance: grossly normal Mental Status: mental status grossly normal Attitude: cooperative Office Procedures AMB Joint Injection/Aspiration Joint Injection/Aspiration Primary Site: Right Knee Secondary Site: Left Knee Injected: 40 mg of, Decadron, with 4 mL of, 1% plain Lidocaine, 0.25% Bupivacaine and in the joint Approach Used: anterolateral Procedure: The patient tolerated the procedure well, but had some pain with the injection and there was some relief with the local anesthesia Coding 66264 - Bilateral Large Joint Procedure code (CPT) selection complete Assessment & Plan Assessment & Plan (1) Osteoarthritis of knees, bilateral: Code(s): M17.0 - Bilateral primary osteoarthritis of knee Category: Medical Qualifiers: Osteoarthritis type: unspecified Qualified Code(s): M17.0 - Bilateral primary osteoarthritis of knee Plan The patient was offered a cortisone injection in bilateral knees. The patient was explained the risks, benefits, and alternatives to receiving this injection. After receiving consent for the injection, the patient had the procedure done while in the office today. The patient tolerated the procedure well with no complications. The risks, benefits, and alternatives to a corticosteroid injection were discussed with the patient, including the potential benefits of decreased inflammation and pain, improved function, and diagnostic value. Risks were reviewed, including post-injection flare, skin or fat atrophy, transient facial flushing, temporary elevation in blood glucose, bruising, and rare but serious complications such as infection, tendon weakening or rupture, and cartilage damage with repeated injections. Procedure-related discomfort and possible vasovagal symptoms were also explained. Alternatives were reviewed, including NSAIDs, physical therapy, activity modification, bracing, ice/heat, weight management, hyaluronic acid injections when appropriate, PRP or other orthobiologics, oral steroids, surgery depending on pathology, and observation. The patient verbalized understanding and elected to proceed. After receiving consent for the injection, the patient had the procedure done while in the office today. The patient tolerated the procedure well with no complications. Follow-up will be PRN, or sooner if needed Coding Level of Care Code Est Pt Level 3 (10524) Diagnoses Osteoarthritis of both knees, unspecified osteoarthritis type M17.0 Osteoarthritis type: unspecified CPT Codes Coding - 43890 - Bilateral Large Joint: 17659 - Bilateral Large Joint ([id number])
== END 2025-05-26 09:34 | disposition home or self-care (01) ==
LOC: HO.HOS 09:01
PROVIDERS: PCP Internal Medicine; Visit Provider Physician Assistant
DX: M17.0 Bilateral primary osteoarthritis of knee (principal)
CPT/HCPCS: 20610; 99213

== ENCOUNTER → 2025-05-26 09:01 | Outpatient (BNVA) | payer OTHER, SELFPAY | PROVIDERS: PCP Internal Medicine; Visit Provider Physician Assistant | DX: M17.0 Bilateral primary osteoarthritis of knee (principal); G89.29 Other chronic pain | CPT/HCPCS: 20610; 99212; J0665; J1100; J2003 ==